=== PATIENT | male | born 1940 | race Caucasian/White ===

== ENCOUNTER 2017-04-14 05:01 | Inpatient (IN) | payer MEDICARE ==
[2017-04-14] MEDS ORDERED: Ondansetron INJ* 2 MG/ML VIAL IV ONE (05:29)
[2017-04-14] MEDS ORDERED: Nitroglycerin TAB 0.4 MG* 0.4 MG TAB SL ONE ×2 (05:29→05:54)
[2017-04-14] MEDS ORDERED: Morphine INJ* 4 MG/ML 1 ML SYRINGE IV ONE (05:29)
[2017-04-14 05:58] LABS: Hematocrit 33 % (42-52); Mean Corpuscular HGB Conc 34 g/dl (31-36); Mean Corpuscular Hemoglobin 29 pg (27-31); Mean Corpuscular Volume 85 fL (80-94); Mean Platelet Volume 8 um3 (7.4-10.4); Red Blood Count 3.83 10^6/ul (4.0-5.4); Red Cell Distribution Width 16 % (10.5-15); White Blood Count 6.2 10^3/ul (3.5-10.8)
[2017-04-14 06:12] LABS: Albumin 3.8 g/dL (3.2-5.2); BUN/Creatinine Ratio 35.1 (8-20); C Reactive Protein 12.23 mg/L (< 5.00); Calcium 9.3 mg/dL (8.6-10.3); EGFR Non-African American 98.8 (>60); Globulin 3.2 g/dL (2-4); Magnesium 1.8 mg/dL (1.9-2.7); Potassium 3.7 mmol/L (3.5-5.0)
[2017-04-14 06:13] LABS: Digoxin 0.2 ng/ml (0.8-2.0); Troponin I 0.02 ng/mL (<0.04)
[2017-04-14 06:22] LABS: TSH (Thyroid Stimulating Horm) 1.57 mcIU/mL (0.34-5.60)
--- NOTE | 2017-04-14 07:57 | RAD ---
Indication: Sudden onset chest pain. Question quality. Previous coronary artery bypass. Comparison: October 06, 2016 Technique: Upright AP 0615 hours Report: Accounting for large body habitus with superimposed soft tissues the lungs and pleural spaces are clear. Negative for pneumothorax. Cardiomegaly. Unremarkable central pulmonary vasculature. Median sternotomy wires. IMPRESSION: Cardiomegaly without evidence for pulmonary edema.
[2017-04-14] MEDS ORDERED: Acetaminophen TAB* 325 MG PO PRN (08:03)
[2017-04-14] MEDS ORDERED: oxyCODONE/Acetamin 5/325 MG* TAB PO PRN (08:03)
[2017-04-14] MEDS ORDERED: Morphine INJ* 2 MG/ML 1 ML SYRINGE IV PRN (08:03)
[2017-04-14] MEDS ORDERED: Dextrose 50% Syringe 50 ML* 25 GM/50 ML SYRINGE IV PUSH PRN (08:05)
[2017-04-14] MEDS ORDERED: Warfarin TAB(*) 5 MG PO SCH (09:00)
--- NOTE | 2017-04-14 09:04 | RAD ---
HISTORY: LFT elevation and a patient with history of "endocarcinoma of the liver" COMPARISONS: None TECHNIQUE: Multiple transverse and longitudinal ultrasound images were obtained of the right upper quadrant. FINDINGS: LIVER: The liver exhibits overall increased echogenicity. In the right lobe of the liver there is a low-density lesion without intrinsic blood flow measuring 2.5 x 1.5 x 2.3 cm. The left lobe of the liver exhibits mild dilatation of the biliary ducts. GALLBLADDER AND EXTRAHEPATIC BILIARY DUCT: The gallbladder is surgically absent. The common bile duct measures a maximum diameter of 5 mm. PANCREAS: The portions of the pancreas not obscured by bowel gas are normal in appearance. RIGHT KIDNEY: The right kidney is normal in size, morphology and echogenicity. AORTA AND IVC: The visualized portions are normal in appearance and not pathologically dilated. IMPRESSION: THERE IS DILATATION OF THE INTRAHEPATIC BILIARY DUCTS OF THE LEFT LOBE OF THE LIVER WELL A LOW ECHOGENICITY LESION IDENTIFIED IN THE RIGHT LOBE OF THE LIVER MEASURING UP TO 2.5 CM IN GREATEST DIMENSION. PARTICULARLY IF THE PATIENT HAS A HISTORY OF MALIGNANCY, FURTHER CHARACTERIZATION THE LIVER SHOULD BE MADE WITH EITHER FOUR-PHASE CONTRAST-ENHANCED CT OR CONTRAST-ENHANCED MRI OF THE LIVER.
[2017-04-14] MEDS: Aspirin Low Dose CHEW TAB* 81 MG PO SCH (09:22)
[2017-04-14] MEDS: Metoprolol Tartrate TAB* 25 MG PO SCH (09:22)
[2017-04-14] MEDS: Bumetanide TAB* 2 MG PO SCH (11:09)
[2017-04-14] MEDS ORDERED: Insulin LISPRO* 1 UNITS UNIT SUBCUT SCH (11:30)
[2017-04-14] MEDS: Insulin LISPRO* 1 UNITS UNIT SUBCUT SCH ×2 (11:48→17:24)
[2017-04-14 11:49] LABS: HDL Cholesterol 29.4 mg/dL
[2017-04-14] MEDS: Nitroglycerin 2% OINT* 1 GM PAK TOPICAL SCH ×2 (11:50→17:26)
--- NOTE | 2017-04-14 12:01 | HP ---
ADDENDUM NOW INCLUDED ON THIS REPORT CC: Dr. Micah Barker; [facility] * HISTORY AND PHYSICAL: DATE OF ADMISSION: 04/14/17 CHIEF COMPLAINT: Chest pain. PRIMARY CARE PROVIDER: Dr. Barker. 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 Patient usually uses a wheelchair and he stated that he used lot of his upper body strength to move books yesterday. He woke up in the middle of the night complaining of severe pain localized in his chest radiating to both arms. It feels that if he could exercise it off, the pain would go away. He was treated with nitroglycerin ____ __ in the emergency department and his pain is right now at 2/10. He denies any shortness of breath. He has no other associated symptoms. He is going to be placed on overnight observation with a diagnosis of chest pain to rule out angina. It appears that the pain could have been musculoskeletal though. PAST MEDICAL HISTORY: 1. History of peripheral vascular disease, status post angioplasty on the left leg with subsequent development of left heel ulcer. 2. History of bilateral lower extremity ulcers. The left heel is being treated by the wound care center and has history of MRSA positive. 3. Recent diagnosis of proctitis in a patient with history of prostate cancer. The patient stated that he had diarrhea for 8 weeks in February 2017. 4. History of adenocarcinoma of the liver, status post TheraSphere radiation therapy to 2 tumors in his liver in 2010. 5. History of neurogenic bladder. 6. History of prostate cancer. 7. Diabetes, type 2, insulin dependent. 8. History of coronary artery disease, status post coronary artery bypass grafting. 9. History of diabetic neuropathy. Patient has basically no sensation in his bilateral lower extremities distally. 10. Patient's last stress test was negative in 2012. 11. History of bilateral leg edema. 12. History of chronic atrial fibrillation. Patient uses Coumadin at 5 mg daily. He states that his INR levels had been in the 1.1 to 1.2 range and he had never been therapeutic. Currently he is not titrating his Coumadin dose and he does not check his INR's. 13. Obstructive sleep apnea. 14. Obesity. 15. Degenerative joint disease. 16. History of left total hip replacement, right total knee replacement, and right total hip replacement. 17. Status post TURP. 18. History of appendectomy and cholecystectomy. MEDICATIONS: Currently include, 1. Insulin NovoLog on a sliding scale with glucose checks 4 times a day. 2. Coumadin 5 mg daily. 3. Vision Essentials 4 tablets daily. 4. Bethel-3 fatty acids 1 capsule daily. 5. Multivitamin 2 tablets daily. 6. Lopressor 25 mg daily. 7. Metformin 1000 mg daily. 8. Coenzyme Q10 200 mg daily. 9. Cardio Plus 45 drops daily. 10. Bumetanide 2 mg daily. 11. Vitamin B complex and folic acid 1 tablet daily. 12. Aspirin 81 mg daily. 13. Acetaminophen on a p.r.n. basis. ALLERGIES: No known drug allergies. FAMILY HISTORY: Diabetes and heart disease. Father with history of obstructive sleep apnea. SOCIAL HISTORY: The patient denies any tobacco, alcohol or drug use. He lives by himself. His surrogate is his son who is a local physician. REVIEW OF SYSTEMS: Please see history of present illness. Patient stated that he had a bout of diarrhea for 8 weeks in February 2017. A sigmoidoscopy and biopsy at that point showed colitis and proctitis. History of recent cellulitis approximately a month ago, treated with ciprofloxacin. That was cellulitis on the left leg. Patient goes to wound care center weekly for wound checks of his left heel and right distal lower extremity. Patient stated that his wounds had been improving. Patient's weight is at baseline at 270 pounds. Patient usually uses a wheelchair for ambulation. All the remaining 14 systems were reviewed with the patient and were otherwise negative. PHYSICAL EXAMINATION GENERAL: Patient is a 76-year-old obese male who is no acute distress. Alert, awake and oriented x3. VITAL SIGNS: Blood pressure of 111/67, heart rate of 87 and regular, respiratory rate 22, oxygen saturation 100% on room air, temperature of 97.6. HEENT: Head atraumatic, normocephalic. Eyes: Pupils equal, reactive to light and accommodation. Oropharynx clear. Mucosa moist. NECK: Supple. No JVD. No bruits bilaterally. RESPIRATORY: Clear to auscultation bilaterally. CARDIOVASCULAR: Irregularly irregular rhythm, no murmur. ABDOMEN: Soft and nontender. Bowel sounds present in all 4 quadrats. EXTREMITIES: There is no edema. Pulses +2 bilaterally. No clubbing or cyanosis. SKIN: Patient is mildly jaundiced. He has a wound of 2 x 2 cm stage 3 on his right lower extremity distally. On the left heel, patient also has a wound 2 x 3 cm, stage 3. Both distal lower extremities have chronic venous stasis dermatitis with chronic appearing erythema. Please note that the patient also has chronic lymphedema of approximately +1 bilaterally. NEUROLOGIC: Speech clear. Cranial nerves II through XII grossly intact. Motor strength is 5/5 bilaterally. Patient has decreased sensation about all distal lower extremities bilaterally. LABORATORY DATA: Sodium 132, potassium 3.7, chloride 97, carbon dioxide 29, BUN 27, creatinine 0.77. Liver function tests showed magnesium of 1.8, total bilirubin of 4.0, AST of 80, ALT of 67, alkaline phosphatase of 697. That is slightly worse from liver function test obtained a month ago in March 2017. Prior to that, patient's liver function tests were basically normal. TSH was 1.57. Patient's troponin was 0.02. Albumin of 3.8, globulin of 3.2. Patient's EKG showed his baseline right bundle branch block with a heart rate of 79 beats per minute. Patient's portable chest x-ray was read by the radiologist as "cardiomegaly without evidence of pulmonary edema." Please also note that the patient's INR was 1.14, PTT of 30.7, D-dimer of below 200. ASSESSMENT AND PLAN: 1. In regards to patient's chest pain, it appears to be most likely musculoskeletal. Patient associates it with exercise yesterday and it feels to him like muscle pain. Nevertheless, he has significant history of coronary artery disease and he is going to be placed on overnight observation and pharmacologic stress test in the morning. His troponins are going to be followed. He is going to be continued on aspirin. I will also check lipid profile, although at this point with elevation of liver function tests, he is not a greatest candidate for statin treatment. 2. In regards to elevation of liver function tests, the patient stated that he thought that it most likely is related to fatty liver. He had elevation of liver function test a month ago already. He does have history of adenocarcinoma of the liver. At this point, I will obtain a liver ultrasound. He is status post cholecystectomy. 3. In regards to wound care, I will ask Wound Care to consult on the patient. Patient had been seen at our wound care center on a weekly basis. 4. For his peripheral leg edema, Bumex is going to be continued. 5. For his diabetes, patient is going to be placed on insulin sliding scale and diabetic diet. Metformin is going to be held while in the hospital. 6. For DVT prophylaxis, patient is at moderate risk and he refused pharmacologic prophylaxis due to easy bruisability in the past. 7. Patient's code status is full. 8. In regards to his chronic atrial fibrillation that is rate controlled on metoprolol, patient is going to be continued on metoprolol. At this point, his INR is subtherapeutic but the patient stated that it had been subtherapeutic for quite some time and he was in fact never really therapeutic. He requested for his Coumadin dose to be not changed. He, at home, does not follow his INR' s. I will continue his Coumadin at 5 mg daily. I do not think at this point, we need to follow up his INRs. TIME SPENT: Please note that approximately 65 minutes were spent on admission of this patient, more than half the time was spent face to face with patient during the interview, physical exam and counseling. ADDENDUM: Please note that the patient has history of neurogenic bladder and self- catheterizes himself 4 times a day. When admitted, the patient requested a Sosa catheter to be placed for comfort. In regards to the patient's chest pain, the patient continues to have chest pain and his troponin increased to 0.2. Dr. Apodaca was consulted. At this point, the patient is not interested in anticoagulation with heparin drip that were offered to him. He was prefer to talk about it with the programming intern. In regards to patient's elevation of liver function tests, the patient's liver ultrasound showed 2.5 cm hypodense lesion. At this point, we agreed to have a CT of the abdomen performed with IV contrast to followup on that to rule out liver metastasis/cancer. I will also order serum alpha fetoprotein. [id number] #: [id number] #: [id number] [facility] MEDICAL CENTERHedy
--- NOTE | 2017-04-14 13:49 | HP ---
HISTORY AND PHYSICAL: * ADDENDUM: Please note that the patient has history of neurogenic bladder and self- catheterizes himself 4 times a day. When admitted, the patient requested a Sosa catheter to be placed for comfort. In regards to the patient's chest pain, the patient continues to have chest pain and his troponin increased to 0.2. Dr. Apodaca was consulted. At this point, the patient is not interested in anticoagulation with heparin drip that were offered to him. He was prefer to talk about it with the boat hand. In regards to patient's elevation of liver function tests, the patient's liver ultrasound showed 2.5 cm hypodense lesion. At this point, we agreed to have a CT of the abdomen performed with IV contrast to followup on that to rule out liver metastasis/cancer. I will also order serum alpha fetoprotein. [id number]/[facility] #: [id number] MTDD
[2017-04-14] MEDS ORDERED: Iodixanol* (CONTRAST) 320 MG/ML 100 ML SDV IV ONE (14:57)
--- NOTE | 2017-04-14 15:37 | RAD ---
INDICATION: Liver lesion seen on ultrasound. COMPARISON: Comparison is made with a prior right upper quadrant ultrasound from April 14, [address] angiogram of the abdomen and pelvis from August 04, 2013. TECHNIQUE: A CT scan of the abdomen was performed without and with intravenous contrast enhancement and with oral contrast. The contrast enhanced portion of the exam was performed during the arterial, portal venous phases and a delayed dataset was obtained. The exam was performed following intravenous injection of 141 ml of is a PICC 320 nonionic contrast. Contiguous axial sections were obtained from the lung bases through the tops of the iliac crests. Images were reconstructed in the coronal and sagittal planes. FINDINGS: There is a small 4 mm calcified nodule present in the left lower lobe. The lung bases are otherwise clear. No pleural effusion is seen. The liver appears mildly enlarged with a lobulated contour. There is a 1.4 cm hypervascular lesion present in the right hepatic lobe which likely accounts for the hypoechoic nodule noted on ultrasonography. This demonstrates washout of contrast. There is overlying retraction of the hepatic capsule and a linear hypodense area extending through this region possibly representing post treatment changes. There is mild intrahepatic ductal distention. The patient is status post cholecystectomy. The spleen is moderately enlarged spanning 17.4 cm. The pancreas appears to be within normal limits. The adrenal glands and kidneys are normal in size. No hydronephrosis is seen. No significant focal abnormality is noted. The aorta is normal in caliber and demonstrates homogeneous contrast opacification. There is mild to moderate calcific plaque present. No significant enlarged retroperitoneal or mesenteric lymph nodes are seen. The stomach and visualized portion of the small and large bowel appear nondistended. No free intraperitoneal air or fluid is seen. The bony density is somewhat heterogeneous without significant focal abnormality appreciated. The results of this exam were discussed with the referring clinician. IMPRESSION: 1. HEPATOSPLENOMEGALY, THE LIVER HAS A LOBULATED APPEARANCE AND THERE APPEAR TO BE POSTTREATMENT CHANGES PRESENT WITHIN THE RIGHT HEPATIC LOBE. THERE IS A SMALL HYPERVASCULAR LESION PRESENT WITHIN THE RIGHT HEPATIC LOBE LIKELY ACCOUNTING FOR THE ABNORMALITY NOTED ON ULTRASOUND SUSPICIOUS FOR MALIGNANCY. CONSIDER ULTRASOUND-GUIDED BIOPSY FOR FURTHER EVALUATION. 2. MILD INTRAHEPATIC DUCTAL DISTENTION.
--- NOTE | 2017-04-14 16:23 | ECHO ---
Patient: VANGIE ZEPEDA [facility] Rec#: [id number] : 1940 Date: 04/14/2017 Age: 76y Height: 177.8 cm / 70.0 in Weight: 123.38 kg / 271.9 lbs Sex: M BSA: 2.38 Room#: 452 Admit Date#: 04/14/2017 Type: Inpatient Referring: Emam Lucero MD Reading: Rola Apodaca MD Deli Associate: Abena Ramirez,BRITTNEYCS,RDMS CC: Micah Zepeda DO Transthoracic Echocardiogram Indication: CP BP: 131/64 HR: 69 Rhythm: A-Fib Findings History: CAD, CABG, AFIB, DM, PVD, liver cancer Technical Comments: The study quality is fair. Left Ventricle: The left ventricular chamber size is normal. Mild to moderate concentric left ventricular hypertrophy is observed. There is a focal wall motion abnormality present.Inferior/posterior wall relatively hypokinetic. The estimated ejection fraction is 45-50%. Ventricular septal wall motion has a post-operative appearance. The assessment of diastolic function is non-diagnostic. Left Atrium: The left atrium is severely dilated. Right Ventricle: The right ventricle is mildly dilated. The right ventricular global systolic function is low normal. Right Atrium: The right atrial cavity size is severely dilated. Aortic Valve: The aortic valve is trileaflet. The aortic valve leaflets are mildly thickened. There is aortic annular calcification. There is trace to mild aortic regurgitation. There is no evidence of aortic stenosis. Mitral Valve: Mild mitral leaflet calcification is visualized. There is moderate mitral regurgitation. There is mild mitral stenosis. Tricuspid Valve: The tricuspid valve leaflets are normal. There is moderate to severe tricuspid regurgitation. There is evidence of borderline pulmonary hypertension. Pulmonic Valve: The pulmonic valve appears normal. There is mild to moderate pulmonic regurgitation. Pericardium: There is no significant pericardial effusion. Aorta: There is mild dilatation of the ascending aorta. There is no dilatation of the aortic arch. There is mild dilatation of the aortic root. Pulmonary Artery: The main pulmonary artery appears normal. Venous: The inferior vena cava is dilated. There is an approximate 50% respiratory change in the inferior vena cava dimension. Conclusions Mild to moderate concentric left ventricular hypertrophy is observed. .Inferior/posterior wall relatively hypokinetic and the septum is markedly dyskinetic c/w with prior CABG. The estimated ejection fraction is 45-50%. The right ventricular global systolic function is low normal. The left atrium is severely dilated. Severe bi atrial enlargement. Aortic valve sclerosis with trace to mild aortic regurgitation. There is moderate mitral regurgitation. There is moderate to severe tricuspid regurgitation. There is evidence of borderline pulmonary hypertension: 33 mmHg assuming an RA pressure of 15 mmHg. There is mild to moderate pulmonic regurgitation. There is mild dilatation of the ascending aorta: 3.9 cm. The inferior vena cava is markedly dilated with an approximate 50% respiratory change in the inferior vena cava dimension. Compared with prior study of01/30/15, LVEF stable, wall motion abnormalities newly described, aortic valve function is stable, mitral insufficiency has increased, tricuspid insufficiency has increased from mild/moderate, aorta stable, previously measured at 4.1 cm. Measurements Name Value Normal Range RVIDd (AP) 2D 4.3 cm (0.9 - 2.6) RVDdMajor (2D) 3.4 cm (2.2 - 4.4) RAd ISD 4CH 7.7 cm (3.4 - 4.9) RA (A4C)W 5.4 cm (2.9 - 4.6) IVSd (2D) 1.4 cm (0.6 - 1) LVPWd (2D) 1.4 cm (0.6 - 1) LVIDd (2D) 4.6 cm (3.6 - 5.4) LVIDs (2D) 4.2 cm - LV FS (2D) 10 % (25 - 45) Aortic Annulus 2.6 cm (1.4 - 2.6) Ao root diameter (2D) 3.9 cm (2.1 - 3.5) Ascending Ao 3.9 cm (2.1 - 3.4) Aortic arch 2.8 cm (1.8 - 3.4) LA dimension (AP) 2D 5.9 cm (2.3 - 3.8) LAd ISD 4CH 8.2 cm (2.9 - 5.3) LA ISD 4CH W 6.1 cm (2.5 - 4.5) Name Value Normal Range LA ESV SP 4CH (A/L) 236.06 ml - LA ESV SP 2CH (A/L) 83.97 ml - LA ESV BP (A/L) 166.66 ml - LA ESV BP (A/L) index 70 ml/m2 - LA ESV SP 4CH (MOD) 216.93 ml - LA ESV SP 2CH (MOD) 78.54 ml - Name Value Normal Range MV E-wave Vmax 0.9 m/sec - MV deceleration time 235 msec - LV septal e' Vmax 0.09 m/sec - LV lateral e' Vmax 0.16 m/sec - LV E:e' septal ratio 10 ratio - LV E:e' lateral ratio 5.6 ratio - Name Value Normal Range AV Vmax 0.9 m/sec - AV peak gradient 3.6 mmHg - LVOT Vmax 0.6 m/sec - LVOT peak gradient 1.4 mmHg - SAVANNA Vmax 0.7 m/sec - Name Value Normal Range MV Vmax 1.3 m/sec - MV VTI 22.2 cm - MV peak gradient 7 mmHg - MV mean gradient 1.8 mmHg - MV PHT 64 msec - MVA (PHT) 3.4 cm2 - Name Value Normal Range TR Vmax 2.1 m/sec - TR peak gradient 18 mmHg - RAP 15 mmHg - RVSP 33 mmHg - IVC diameter 3 cm - Name Value Normal Range PV Vmax 0.5 m/sec - PV peak gradient 1 mmHg -
--- NOTE | 2017-04-14 16:29 | PN ---
Progress Note - Progress Note Note: Pt initially didn't want to be placed on heparin gtt. In light of elevated troponins he agreed. He is now CP free (after nitroglcerin paste)
[2017-04-14] MEDS ORDERED: Heparin VIAL(*) 5000 UNITS/ML VIAL (FIVE THOUSAND) IV SCH (17:00)
[2017-04-14] MEDS: Heparin DRIP 25,000 UNITS(*) 25,000 UNITS/500 ML BAG IVPB SCH (17:19)
[2017-04-14 18:02] LABS: Troponin I 0.67 ng/mL (<0.04)
--- NOTE | 2017-04-14 18:48 | PN ---
Cardiology Progress Note Full consult to be dictated. Pt seen today. Awoke with CP, worst of his life. Denied any associated SOB, diaphoresis. Slowly cleared with NTG in ambulance, ED. Increased upper body exertion lifting books. PMHx includes CABG, afib on coumodin, no INR checks, DM, obesity, prostate CA, adeno CA liver, s/p targeted therapy, recent bump in LFT's, now jaundiced and a new liver lesion found this admission. ECG: afib, RBBB, non specific changes. Trops mild progressive rise. INR subtheraputic, LFT's bumped. A/P 76 yo pt 19 years post CABG with DM, dyslipidemia and elevated LDL now, afib not adequately anticoagulated, cancer as above presenting with CP, bumped trops. Differential: NQMI induced by hypoxia, CHF/THANH. NQMI due to muculoskelatal pain but I could not reproduce, unlikely. NQMI due to embolism with afib, inadequate INR and recurrence of liver CA, could be prothrombotic. Plan: due to comorbidities, potential risk of plavix with vascular tumor and possible tumor intervention and uncertain shelter prognosis and differential of etiology, I am proceeding with a chemical stress (not cath). Repeating ECG's. Agree with heparin. Checking overnight oximetry for poss. THANH. I discussed iwth the pt seeing a local oncologist to assist coordinating care here iwth his usual oncologists, he will see if we recommend.
[2017-04-14 19:16] LABS: Hematocrit 34 % (42-52); Hemoglobin 11.5 g/dl (14.0-18.0); Mean Corpuscular HGB Conc 33 g/dl (31-36); Mean Corpuscular Hemoglobin 29 pg (27-31); Mean Corpuscular Volume 86 fL (80-94); Mean Platelet Volume 8 um3 (7.4-10.4); Red Blood Count 3.99 10^6/ul (4.0-5.4); Red Cell Distribution Width 17 % (10.5-15); White Blood Count 6.4 10^3/ul (3.5-10.8)
[2017-04-15] MEDS: Insulin LISPRO* 1 UNITS UNIT SUBCUT SCH ×4 (00:42→17:34)
[2017-04-15 00:51] LABS: Urine Bacteria Absent (Absent); Urine Bilirubin Negative (Negative); Urine Glucose Negative (Negative); Urine Nitrite Negative (Negative)
[2017-04-15 07:43] LABS: Hematocrit 31 % (42-52); Hemoglobin 10.6 g/dl (14.0-18.0); Mean Corpuscular HGB Conc 34 g/dl (31-36); Mean Corpuscular Hemoglobin 30 pg (27-31); Mean Corpuscular Volume 87 fL (80-94); Mean Platelet Volume 9 um3 (7.4-10.4); Red Blood Count 3.59 10^6/ul (4.0-5.4); Red Cell Distribution Width 16 % (10.5-15); White Blood Count 5.3 10^3/ul (3.5-10.8)
[2017-04-15 07:44] LABS: Albumin 3.4 g/dL (3.2-5.2); BUN/Creatinine Ratio 35.1 (8-20); Calcium 8.9 mg/dL (8.6-10.3); EGFR African American 179.7 (>60); EGFR Non-African American 139.7 (>60); Globulin 2.9 g/dL (2-4); Potassium 3.7 mmol/L (3.5-5.0); Total Protein 6.3 g/dL (6.4-8.9)
[2017-04-15] MEDS: Heparin DRIP 25,000 UNITS(*) 25,000 UNITS/500 ML BAG IVPB SCH (08:45)
[2017-04-15] MEDS: Bumetanide TAB* 2 MG PO SCH (08:46)
[2017-04-15] MEDS: Aspirin Low Dose CHEW TAB* 81 MG PO SCH (08:46)
[2017-04-15] MEDS: Metoprolol Tartrate TAB* 25 MG PO SCH (08:46)
[2017-04-15] MEDS ORDERED: Regadenoson* 0.4 MG/5 ML SYRINGE ONE (11:38)
[2017-04-15] MEDS ORDERED: Aminophylline IV* 25 MG/ML 10 ML VIAL ONE (11:38)
--- NOTE | 2017-04-15 14:43 | CONS ---
CONSULTATION REPORT: DATE OF CONSULT: 04/15/17 REASON FOR CONSULTATION: History of liver cancer. HISTORY OF PRESENT ILLNESS: This is a 76-year-old male who is presenting with chest pain. He developed sudden crushing chest pain 2 days ago as well as numbness down both hands. It was unrelenting and he came to the emergency room at [facility]. No diaphoresis, shortness of breath, or nausea with this episode. He had had a double bypass in 1997, but no cardiac difficulties since that time. He has had multiple negative stress tests as preoperative testing for hip and knee replacements. He had an elevated troponin of approximately 0.6 after admission and he has been on telemetry. He is placed on heparin drip for a non-Q-wave AZ. Stress test is pending and a question has been raised as to whether or not he would benefit from cardiac intervention including a stent. He has a history of liver cancer. He discusses a primary liver adenocarcinoma, I questioned whether or not he had a hepatocellular carcinoma of the liver with adenomatous differentiation, other possibility could be of a hepatocellular cholangiocarcinoma or primary biliary tumor. He was diagnosed in 2009 and treated at [facility] with TheraSphere therapy. At that time, he reports having a 5 cm and 2 cm tumor in the right lobe of the liver. He had a complete response within 9 months and has been without evidence of disease since that time. On presentation yesterday, he had a CT scan of the chest and abdomen. He was found to have a new 1.5 cm liver lesion in the area of prior directed therapy, no other lesions on the CT scan. He had an ultrasound that shows some diffuse heterogeneity of the liver parenchyma as well as a 1.5 cm lesion. Again, no other focal lesions seen. He has a bilirubin of 5.0 on 04/15 and 4.0 on 04/14. He has an alkaline phosphatase of 669. He had normal alkaline phosphatase through 2014, then 117 on 01/22, then 187 on 01/21, then 187 on 09/23, then 639 on admission. His bilirubin had always been normal but was 1.1 on 10/06/16, then 3.7 on 03/11/17 and then 4 to 5 on this admission as noted above. He has a mild elevation in his AST that was normal until 09/2016 at 45, then 104 last month, 103 today and ALT was normal in 09/2016, 71 on 03/24, and 73 today. In addition to the chest pain, he has had change in stool color over the past several weeks, suarez to beige. He has had diffuse itching for 2 to 3 weeks. Other notable history includes history of adenocarcinoma of the pancreas, also treated at [facility] with a TURP followed by [place] therapy, directed external beam radiation. He has had a low PSA since that time. PAST MEDICAL HISTORY: 1. Coronary artery disease as noted above. History of bypass and now chest pain. 2. Peripheral vascular disease, status post angioplasty of left leg and complicated by a left heel ulcer. 3. Left heel ulcer. Treated by Dr. Tierney. He has had hyperbaric oxygen, slowly healing. 4. Proctitis and C. diff colitis diagnosed by Dr. Cross, had been treated with Flagyl and improved. 5. Neurogenic bladder, self-catheterization 7 to 8 times a day and a Sosa while he is in the hospital. 6. Type 2 diabetes, insulin dependent. 7. Diabetic neuropathy with decreased sensation in the lower extremities. 8. Bilateral lower extremity edema. 9. Chronic atrial fibrillation, taking Coumadin 5 mg a day and subtherapeutic on admission. 10. Obstructive sleep apnea. 11. Obesity. 12. Degenerative joint disease. Hip and knee replacements in the past. PAST SURGICAL HISTORY: 1. Appendectomy. 2. Cholecystectomy. 3. TURP, prior to treatment of prostate cancer. 4. TheraSphere therapy to liver. 5. Hip replacement. 6. Knee replacement. 7. Coronary artery bypass surgery. ALLERGIES: None. FAMILY HISTORY: Diabetes and heart disease, obstructive sleep apnea in the family. SOCIAL HISTORY: Denies tobacco or any alcohol or drug use. Lives by himself. Son is a physician locally. He lives alone and he has been independent. REVIEW OF SYSTEMS: As noted per HPI, 14-point review otherwise negative. PHYSICAL EXAM: Temperature 98.5, BP 113/59, heart rate 87, saturation 98%. HEENT: Scleral icterus. Jaundice. No cervical or supraclavicular lymphadenopathy. No oral lesions. Lungs: Clear to auscultation bilaterally. Heart: Irregular, 70s. No clear murmurs. Nodes: No peripheral lymphadenopathy. Abdomen: Nontender and nondistended. I do not really feel the liver edge and I feel a slight spleen tip. : Sosa in place. Dark yellow urine. Extremities: Edema both sides. His right leg is in a brace that was not removed. DIAGNOSTIC STUDIES/LAB DATA: Liver function tests as outlined above. He had an INR of 1.14 on admission. PTT increased now on Coumadin and he has had an albumin of 3.4 on admission. Blood counts are stable. CT scan without clear splenomegaly, slight nodularity to the liver. No hydronephrosis. Normal renal appearance, normal appearing bowels. No bone lesions. The 1.5 cm lesion is seen. Scans are reviewed with Dr. Marc. ASSESSMENT AND PLAN: A 76-year-old male with a history of primary liver malignancy. I suspect cirrhosis and hepatocellular carcinoma with adenomatous differentiation, primary biliary cancer, cholangiocarcinoma are both possible. My thought that this is hepatocellular cancer is based on his treatment with TheraSphere Therapy as well as the prolonged time course of his disease. Now presents with acute liver failure and chest pain with an elevated troponin. The 1.5 cm liver lesion is concerning in the half-way, but would not directly affect the management of his cardiac disease. For that alone, it is likely he would have additional directed therapy. The lesion will need to be biopsied, can be done before cardiac intervention defer for 3 month and repeat imaging. . Based on that lesion, I would recommend a bare metal stent with limited need for Plavix. More concerning; however, is his elevated bilirubin. He appears to have acute on chronic liver failure, both by symptoms and his blood work. I reviewed his ultrasound and CT scan with Dr. Marc and I do not see a clear explanation for the elevated bilirubin. He has very modest ductal dilation on the left side on the ultrasound. There is some diffuse nodular disease. Differential diagnosis is chronic liver disease likley from fatty liver with acute decompensation, this could be from right heart failure, progressive cancer. 1. I would delay cardiac intervention at this time. 2. We will order MRI of the liver. 3. I will talk to Dr. Jeter, [facility], and get additional records as well as any additional LFTs that were done down there over the past few years. 4. No contraindication to heparin. INR of 1.14 on 5 mg of Coumadin does seem to indicate preserved synthetic liver function. 5. Consultation to GI for management of acute liver disease. We will continue to follow. [id number]/[facility] #: [id number] [facility] MEDICAL CENTERHedy
--- NOTE | 2017-04-15 15:16 | CONS ---
CC: Dr. Micah Barker; [facility], Dr. Tierney * CARDIOLOGY CONSULTATION: DATE OF CONSULTATION: 04/14/17 REASON FOR CONSULTATION: Coronary artery disease, chest pain, and elevated troponins. CHIEF COMPLAINT: Chest pain. HISTORY OF PRESENT ILLNESS: The patient is a 76-year-old gentleman followed by my partner, Dr. Berry Ballesteros, with known atherosclerotic heart disease, with bypass surgery in 1997. He is in chronic atrial fibrillation and takes Coumadin regularly but takes the same dose without checking INRs. Recently, the patient had not been able to ambulate due to heel wound, has been using a wheelchair. The day before he came in, he was doing a lot of lifting, moving books in the wheelchair with his upper body. He went to bed feeling well then awoke in the middle of the night with 10/10 chest pain. He denied any associated diaphoresis, nausea, and he said he was not winded. It did not resolve, he called his family and emphasized the importance of getting here and he had nitroglycerin several times with eventual resolution of his pain and it has not recurred. The patient denied a positional component to it. He states that he used to have sleep apnea but lost weight and no longer has it (his son states he has sleep apnea and does not like his CPAP). PAST MEDICAL HISTORY: 1. Coronary artery disease, originally in 1997 had stents occluded and he went on to have 2-vessel bypass surgery, that was 18 years ago. On February 1999, he had stents to the LAD and right coronary artery. He had an inferior wall myocardial infarction in 1998 in May with stent to the distal right coronary artery. In September 1999, he had an acute inferior myocardial infarction with a 60% in-stent restenosis of the LAD, mild plaquing in the circumflex and a 100 % right coronary artery occlusion. He had an inferior hypokinesis and an ejection fraction of 45% and underwent 2-vessel bypass surgery with a saphenous vein graft to the posterior descending of the right and saphenous vein graft to the LAD. 2. He has peripheral vascular disease status post angioplasty to the left lower extremity and it is unclear to me if the left heel ulcer was pre or post angioplasty. 3. He has bilateral lower extremity ulcers. 4. Type 2 diabetes, insulin dependent with diabetic neuropathy. 5. Chronic lower extremity edema. 6. Chronic atrial fibrillation, Coumadin as above. 7. Morbid obesity. 8. Obstructive sleep apnea. 9. Degenerative joint disease. 10. History of prostate cancer, status post TURP. 11. History of liver cancer, adenocarcinoma with a history of TheraSphere radiation therapy to two tumors in the liver, 2010. 12. Recent increase in liver function test and on this admission, another liver mass noted. 13. He has hypertension. 14. Neurogenic bladder, self-cath. PAST SURGICAL HISTORY: Includes: 1. His bypass surgery. 2. Orthopedic surgery including a left hip replacement, right hip replacement and right total knee replacement. 3. Appendectomy. 4. Cholecystectomy. 5. TURP. CURRENT INPATIENT MEDICATIONS: Include: 1. Heparin drip just started 04/14/17. 2. Tylenol. 3. Aspirin 81 mg a day. 4. Bumex 2 mg every morning. 5. Humalog insulin Lopressor 25 mg a day. 6. Morphine p.r.n. 7. Percocet p.r.n. ALLERGIES: He has no known medication allergies. FAMILY HISTORY: Positive for coronary disease, diabetes. 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 Not able to exercise recently. His son is a local physician, lumber inspector. REVIEW OF SYSTEMS: Significant, in that several weeks ago, he had a bout of diarrhea, lasting several weeks, ultimately diagnosed with proctitis and colitis. He has had a recent cellulitis, and being actively treated in the wound clinic for his ulcers which he says, are starting to improve. Recent pruritis itching so much he has bruising. He denied any chest pain prior to this and states that the chest pain he had was the worst in his life and very different from his AR pain that he recalls from several years ago. PHYSICAL EXAMINATION: On exam, the patient is 5 feet, weighs 270 pounds with a BMI of 39.4. Vitals: At the time of my exam, blood pressure 114/70, pulse is 70s to 90s (AFib), oxygen saturation 100% on 2 L nasal cannula and he is afebrile at 97.5. General appearance: Morbidly obese elderly gentleman lying almost flat, appears comfortable. Skin: Appears mildly jaundiced, ecchymosis of the forarms and more. The patient is no acute distress. Psychologically, pleasant and cooperative. Neurologically, awake, alert, oriented to person, place and time. Cranial nerves II through XII intact. Speech is articulate. Comprehension is good. He follows commands well. It is hard for him to move in bed due to his obesity and medical issues. HEENT: Pupils are equal and round. Mucous membranes are moist. Neck: Without appreciable increase in JVP , but his neck is thick. Breath sounds were clear in fair inspiratory effort. Coronary: S1, S2, irregularly irregular, a bit distant. Abdomen: Overweight, active bowel sounds. Soft, nontender. No hepatomegaly appreciated. Lower extremities had compression stockings on and he had 3+ to 4+ edema bilaterally, left greater than right. I did not examine his heel. DIAGNOSTIC STUDIES/LABORATORY DATA: White count 6.2, hemoglobin 11, hematocrit 33, INR on arrival 1.14, PTT 30.7. Sodium 132, potassium 3.7, chloride 97, BUN 27, creatinine 0.77, glucose 140, AST 80, ALT 67, alk phos 697, CRP of 12.33, troponin I 0.02, troponin II 0.25, troponin III 0.37, troponin IV 0.67 troponin V 0.53. Total cholesterol 199, triglycerides 107, HDL cholesterol 29 and LDL cholesterol 148, TSH of 1.57, lipase 36. Urinalysis positive for protein, blood, bili, leukocyte esterase positive, 3+ white cells, 3+ red cells. No microbiology culture is pending. Echocardiogram showed an ejection fraction of 45% to 50% with septal dyskinesis and inferoposterior hypokinesis with moderate mitral insufficiency, moderate to severe tricuspid insufficiency and borderline elevation of PA pressures. The patient's EKG on arrival shows atrial fibrillation with a right bundle branch block and a ventricular rate of 79 beats a minute, QRS axis -30. He has inverted T- waves in the precordial and inferior leads that have been seen previously. Repeat ECG, same day showed progression in his T-wave abnormalities but no clear ST changes. Liver ultrasound showed dilatation of the intrahepatic biliary duct in the left lobe of the liver and additional changes concerning for malignancy. Abdominal and pelvic CT scan shows hepatosplenomegaly, lobulated liver, small hypervascular lesion in the right hepatic lobe suspicious for malignancy, mild intrahepatic ductal distention. SUMMARY: Wu Barker is a 76-year-old gentleman with atherosclerotic heart disease, 2-vessel, 18 years post bypass surgery presenting with chest pain, mild elevation in troponins and chronically abnormal EKG. His chest pain has a differential of musculoskeletal from the activity he had done, angina on the basis of coronary disease or on the basis of embolic phenomena or stress from his significant pain, if it were noncardiac. He has an indication for a cardiac catheterization but I would not want to proceed with a cath unless we were in a position to proceed with intervention. With evidence that Mr. Barker has recurrence of his liver malignancy, I do not want to do any procedures that would require longstanding anticoagulation, particularly if he is at high risk for spontaneous bleeding from these lesions or if he would need a procedure in a vascular area, that it would be best done off anticoagulants. The patient's long-term oncologic prognosis would also be helpful. For now I have recommended a nuclear stress test as he is unable to walk, we will do a chemical one and coordinate with Oncology. The patient's Oncology group is in [place] and he has an appointment planned in May, but after discussion, he is amenable to seeing a local oncologist to help coordinate care with his Oncology team and the Cardiology, an lumber inspector team here. In the interim, it appears something stressed him to give him 10/10 pain in the middle of the night. If this is angina, then I have concerns for obstructive sleep apnea and I have ordered this to be tested for. If he is abnormal, I think we should get him back on CPAP. His LDL cholesterol is elevated. I talked to his son about this, he did not perceive his father's lipids were elevated and did not recall allergies or intolerance to medication. If this in fact is the case, then the issue is, can we start a statin in the setting of liver problems. So I have not initiated that at this point in time. 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 Resins may be another option for him. Additional risk factor modification, I agree with the heparinization and possible consideration for NOAC, if we are able to do this safely with his comorbidities, renal and liver situation, this maybe another good option for him going forward instead of Coumadin to prevent risk of future embolic phenomena. 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 We are going to optimize his medical management for atherosclerotic risk, ensure he is fully anticoagulated with agents that are easily reversible and await the results of his nuclear stress test and we will coordinate with Oncology and Internal Medicine once the results of his stress tests are available. [id number]/[facility] #: [id number] MTDD
--- NOTE | 2017-04-15 17:09 | PN ---
Subjective Date of Service: 04/15/17 Interval History: f/u ID no chest pain or dyspnea Medications Active Medications: Acetaminophen (Tylenol Tab*) 650 mg PO Q4H PRN PRN Reason: FEVER/PAIN Aspirin (Aspirin Low Dose Tab*) 81 mg PO QAM [facility] Last Admin: 04/15/17 08:46 Dose: 81 mg Bumetanide (Bumex Tab*) 2 mg PO QAM [facility] Last Admin: 04/15/17 08:46 Dose: 2 mg Dextrose (D50w Syringe 50 Ml*) 12.5 gm IV PUSH .FOR FS < 60 - SS PRN PRN Reason: FS < 60 Heparin Sodium (Porcine) (Heparin Vial(*)) 0 units IV .PER PROTOCOL [facility] PRN Reason: Protocol Last Admin: 04/14/17 17:19 Dose: 6,900 units Heparin Sodium/Dextrose (Heparin Drip 25,000 Units(*)) 25,000 units in 500 mls @ 0 mls/hr IVPB .PER RATE ANASTASIYA; Per Protocol PRN Reason: Protocol Last Admin: 04/15/17 08:45 Dose: 29 mls/hr Insulin Human Lispro (Humalog*) 0 units SUBCUT Q6HR [facility] PRN Reason: Protocol Last Admin: 04/15/17 12:40 Dose: Not Given Metoprolol Tartrate (Lopressor Tab*) 25 mg PO DAILY [facility] Last Admin: 04/15/17 08:46 Dose: 25 mg Morphine Sulfate (Morphine Inj (Syringe)*) 2 mg IV Q4H PRN PRN Reason: PAIN Oxycodone/Acetaminophen (Percocet 5/325 Tab*) 1 tab PO Q4H PRN PRN Reason: Pain Objective Vital Signs: Temp Pulse Resp BP Pulse Ox 98.5 F 88 16 113/59 98 04/15/17 07:58 04/15/17 07:58 04/15/17 06:48 04/15/17 07:58 04/15/17 07:58 Appearance: very pleasant, nad Respiratory: Symmetrical Chest Expansion and Respiratory Effort Cardiovascular: - - irregularly irregular Neurological: Alert and Oriented x 3 Laboratory Results: 04/15/17 05:36 04/15/17 05:36 INR (Anticoag Therapy) 1.14 (0.89-1.11) H 04/14/17 05:23 APTT 71.7 seconds (26.0-36.3) H 04/15/17 09:12 Total Bilirubin 5.00 mg/dL (0.2-1.0) H 04/15/17 05:36 AST 103 U/L (13-39) H 04/15/17 05:36 ALT 73 U/L (7-52) H 04/15/17 05:36 Alkaline Phosphatase 669 U/L (34-104) H 04/15/17 05:36 CK-MB (CK-2) 2.8 ng/mL (0.6-6.3) 04/14/17 05:23 B-Natriuretic Peptide 74 pg/mL (-100) 04/14/17 05:23 Total Protein 6.3 g/dL (6.4-8.9) L 04/15/17 05:36 Albumin 3.4 g/dL (3.2-5.2) 04/15/17 05:36 Globulin 2.9 g/dL (2-4) 04/15/17 05:36 Albumin/Globulin Ratio 1.2 (1-3) 04/15/17 05:36 Triglycerides 107 mg/dL 04/14/17 05:23 Cholesterol 199 mg/dL 04/14/17 05:23 LDL Cholesterol 148 mg/dL 04/14/17 05:23 HDL Cholesterol 29.4 mg/dL 04/14/17 05:23 TSH 1.57 mcIU/mL (0.34-5.60) 04/14/17 05:23 04/15/17 01:01 Troponin I 0.53 H* Assessment/Plan 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 Rest images of vasodilator stress MPI are pending. Oncology consult reviewed in detail. Will wait for the results of stress test after rest images, liver MRI and further Oncology input before deciding whether to pursue an invasive strategy for patients enzymatically small type 1 ID. This was discussed with Dr. Barker.
--- NOTE | 2017-04-15 19:02 | CONS ---
GASTROENTEROLOGY CONSULT: DATE: 04/15/17 REFERRING PHYSICIANS: García Alexis; Dawson Tierney REASON FOR CONSULTATION: Rising cholestatic liver tests. 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 He has been started on heparin and is in the midst of a 2-day stress test. While here, it is noted that his alkaline phosphatase and bilirubin have risen to 669 and 5.0 and imaging had shown some dilation of the left intrahepatic system and questionably the right. He has been pain free since admission. He states that he had been considered cured of his hepatomas from about 1-1/2 to 2 years following his therapy and was fine for a number of years, having CT scans here and normal LFTs. He takes a lot of supplements and did begin a new diabetes directed supplement with a dozen ingredients about 3 weeks ago. Two weeks ago, he began noting some itching. His stools turned pasty even accounting for the iron he takes. He did not have any abdominal pain, loss of appetite, or vomiting. His stools have been normal, have remained so since being treated for C. difficile 3 to 4 months ago. He did take a course of Cipro about 3 weeks ago and has been on that or Levaquin a number of times. Since hospital admission, he has not had any further chest pain. PAST MEDICAL HISTORY: 1. Morbid obesity. 2. Diabetes - longstanding, on insulin. 3. Prostate cancer - treated medically, diagnosed in 2009 and during the course of that workup, liver lesions found. 4. Hepatocellular carcinoma of the right hepatic lobe - during the prostate evaluation, he says some spots were seen on the liver and they were felt originally to be benign hemangiomas. He wanted another opinion and during a 3- day stay at [facility] in [place], had a liver biopsy interpreted as a primary hepatoma. He got a second opinion at [facility] in [place], confirmed that, and so he went back to [facility] where through the femoral artery, he had TheraSpheres were administered and over a year and a half or so, lesions that were originally 4.7 and 2.0 cm faded away. The AFP status of those lesions is not known. 5. Coronary artery disease, history of remote bypass. 6. Peripheral vascular disease, status post angioplasty, left leg. 7. Chronic wound infections of the legs. 8. Neurogenic bladder - chronic self-catheterization QID. 9. Bilateral venous edema. 10. Chronic AFib - on warfarin. 11. Sleep apnea. 12. Degenerative joint disease - several knee and hip replacements. 13. Status post cholecystectomy. 14. Status post appendectomy. ALLERGIES: None. FAMILY HISTORY: No history of colon cancer. SOCIAL HISTORY: He is a retired [employer]. His son is a family physician in [place] who trained in [place]. His son's phone number is . REVIEW OF SYSTEMS: He denies a history of viral hepatitis, rheumatoid arthritis , alcoholism or liver problems as a young man. Hepatoma was presumed to be on the basis of fatty liver. There is no history of CVA, TIA, seizures, prior itching, primary dermatologic disease, or pulmonary disease other than sleep apnea. EXAM: He is a chronically ill appearing man with multiple ecchymoses on the arms. His legs are grossly swollen. He has an indwelling Sosa catheter. He has difficulty positioning himself on the bed being unable to lift his feet without raising them with his hands. He is alert. His sclerae are mildly icteric. He has no adenopathy. Lungs are clear and heart sounds are regular. The abdomen is obese with some ecchymoses. There is no palpable abnormality. Rectal is deferred. Extremities are grossly edematous. IMAGING: Reviewed - CT scan of the abdomen shows a lot of metallic artifact corresponding to the cystic duct stump. The left hepatic system is mildly dilated and the right hepatic system debatably dilated. On coronal images, the common duct is not grossly dilated. There is a calcification in the medial wall of the duodenum close to but not superimposed on the common duct. It was present on a scan 3 to 4 years ago. It is on coronal image 52 of 131. LABS: He is mildly anemic with hemoglobin from 10.6 to 11.0 over the last 48 hours. White count 6, platelets 157. INR 1.2. Albumin 3.4. IMPRESSION: This 76-year-old retired [employer] treated for hepatoma 7 years ago, now has rising cholestatic LFTs coincident with an admission for chest pain. He is known to have prior coronary disease and obviously has had significant liver issues also. Most likely, in the circumstance is recurrence of the liver tumor near the josy hepatis obstructing the intrahepatic biliary system. The timing of his beginning a new herbal supplement is provocative, but this would not be expected to lead to dilation of the intrahepatic ducts and actually, his alkaline phosphatase was somewhat elevated in September 2016 at 187. At that time, there were many other medication changes. His bilirubin was normal. Once his cardiac evaluation is completed, the question of whether to attempt to have an ERCP done with an eye towards a high common duct stent can be more immediately discussed. That is probably best done at a major center. [id number]/CPS #: [id number] MTDD
[2017-04-16] MEDS: Heparin DRIP 25,000 UNITS(*) 25,000 UNITS/500 ML BAG IVPB SCH (05:22)
[2017-04-16] MEDS: Insulin LISPRO* 1 UNITS UNIT SUBCUT SCH ×5 (05:43→19:55)
[2017-04-16] MEDS: Metoprolol Tartrate TAB* 25 MG PO SCH (09:13)
[2017-04-16] MEDS: Bumetanide TAB* 2 MG PO SCH (09:13)
[2017-04-16] MEDS: Aspirin Low Dose CHEW TAB* 81 MG PO SCH (09:13)
[2017-04-16 10:30] LABS: Hematocrit 33 % (42-52); Hemoglobin 10.8 g/dl (14.0-18.0); Mean Corpuscular HGB Conc 33 g/dl (31-36); Mean Corpuscular Hemoglobin 29 pg (27-31); Mean Corpuscular Volume 86 fL (80-94); Mean Platelet Volume 8 um3 (7.4-10.4); Red Blood Count 3.79 10^6/ul (4.0-5.4); Red Cell Distribution Width 17 % (10.5-15)
[2017-04-16 10:45] LABS: Albumin 3.6 g/dL (3.2-5.2); BUN/Creatinine Ratio 21.5 (8-20); EGFR African American 154.4 (>60); EGFR Non-African American 120.1 (>60); Globulin 3.1 g/dL (2-4); Potassium 3.7 mmol/L (3.5-5.0); Total Bilirubin 6.8 mg/dL (0.2-1.0); Total Protein 6.7 g/dL (6.4-8.9)
[2017-04-16 10:50] LABS: Troponin I 0.15 ng/mL (<0.04)
[2017-04-16] MEDS: Isosorbide Mononitrate ER TAB* 30 MG PO SCH (12:12)
--- NOTE | 2017-04-16 13:59 | RAD ---
HISTORY: Chest pain, elevated troponins, previous MO, diabetes, obesity COMPARISONS: July 10, 2013 TECHNIQUE: A 2 day stress/rest myocardial perfusion study was performed, with pharmacologic stress. The stress portion was monitored by Dr. Yañez. Gated SPECT imaging was performed, without CT-based attenuation correction secondary to patient physical limitation DOSE: Stress: Technetium 99m tetrofosmin, 25.77 millicuries, injected at 12:30 PM on April 15, 2017 Rest: Technetium 99m tetrofosmin, 25.93 millicuries, injected at 6:31 AM on April 16, 2017 Pharmacologic agent: Lexiscan FINDINGS: CARDIAC MONITORING: Chest tightness without ischemic EKG changes with stress. EF: 48 % with stress, 57% with rest TID: 1.19 MOTION: There is septal hypokinesia. PERFUSION: There is a moderate-sized fixed defect of the lateral wall. There is a small apical reversible defect. OTHER: None IMPRESSION: 1. DECREASED EJECTION FRACTION WITH STRESS, WITH SEPTAL HYPOKINESIA. 2. MODERATE SIZED FIXED DEFECT OF THE LATERAL WALL SUGGESTIVE OF PREVIOUS INFARCT. 3. SMALL APICAL REVERSIBLE DEFECT SUGGESTIVE OF A SMALL AREA OF ISCHEMIA ASSESSMENT: INTERMEDIATE RISK. Based on imaging criteria from ACC/AHA 2002. Guideline Update for the Management of Patient's with Chronic Stable Angina, table 23. Noninvasive Risk Stratification.
[2017-04-16] MEDS ORDERED: Gadoxetate* (CONTRAST) 181.43 MG/ML 10 ML SDV IV ONE (17:05)
--- NOTE | 2017-04-16 18:21 | RAD ---
INDICATION: Liver disease. COMPARISON: Comparison is made with a prior CT of the abdomen from April 14, 2017. TECHNIQUE: Coronal T2 and axial T1, T2, diffusion, in phase and out of phase T1-weighted images were obtained. Axial dynamic contrast-enhanced axial T1-weighted images were obtained following intravenous injection of 10 ml of Eovist contrast. Coronal T1-weighted images were obtained. In addition an MRCP study was performed. FINDINGS: The liver is enlarged and has a lobulated appearance as previously noted. The small hypervascular lesion in the right hepatic lobe on the prior CT study is not visualized on the MR exam. The patient is status post cholecystectomy. There appears to be mild intrahepatic ductal distention. There is a focal stenosis in the midportion of the common bile duct. No intraluminal filling defect or calculus is seen. The pancreas appears normal in size. No pancreatic ductal distention is present. The spleen is moderately enlarged spanning 17.6 cm without focal abnormality. The kidneys and adrenal glands appear normal in size. There is a small 1 cm cyst in the lower pole of the left kidney. No other focal abdomen normality's or hydronephrosis is seen. No significant enlarged lymph nodes are seen. The abdominal aorta is normal in caliber. No free intraperitoneal fluid is seen. There are T2 hyperintense lesions in the lower dorsal vertebra nonspecific although likely representing hemangiomas. These can be further evaluated with an MRI of the dorsal spine if clinically needed. IMPRESSION: 1. HEPATOSPLENOMEGALY. THERE IS MILD INTRAHEPATIC DUCTAL DISTENTION. THERE APPEARS TO BE A STENOSIS IN THE COMMON BILE DUCT. RECOMMEND ERCP FOR FURTHER EVALUATION. 2. THE PREVIOUSLY NOTED SMALL HYPERVASCULAR LESION NOTED IN THE RIGHT HEPATIC LOBE IS NOT VISUALIZED ALTHOUGH REMAINS A SUSPICIOUS FINDING NOTED PREVIOUSLY. 3. T2 HYPERINTENSE LESIONS IN THE LOWER DORSAL VERTEBRA LIKELY REPRESENTING HEMANGIOMAS ALTHOUGH NONSPECIFIC. THESE CAN BE FURTHER EVALUATED WITH AN MRI OF THE DORSAL SPINE IF CLINICALLY NEEDED.
[2017-04-16] MEDS ORDERED: Insulin LISPRO* 1 UNITS UNIT SUBCUT SCH (18:57)
--- NOTE | 2017-04-16 18:58 | PN ---
Subjective Date of Service: 04/16/17 Interval History: f/u MS no chest pain or dyspnea ambulating to bathroom and back Medications Active Medications: Acetaminophen (Tylenol Tab*) 650 mg PO Q4H PRN PRN Reason: FEVER/PAIN Aspirin (Aspirin Low Dose Tab*) 81 mg PO QAM [facility] Last Admin: 04/16/17 09:13 Dose: 81 mg Bumetanide (Bumex Tab*) 2 mg PO QAM [facility] Last Admin: 04/16/17 09:13 Dose: 2 mg Dextrose (D50w Syringe 50 Ml*) 12.5 gm IV PUSH .FOR FS < 60 - SS PRN PRN Reason: FS < 60 Heparin Sodium (Porcine) (Heparin Vial(*)) 0 units IV .PER PROTOCOL [facility] PRN Reason: Protocol Last Admin: 04/14/17 17:19 Dose: 6,900 units Heparin Sodium/Dextrose (Heparin Drip 25,000 Units(*)) 25,000 units in 500 mls @ 0 mls/hr IVPB .PER RATE ANASTASIYA; Per Protocol PRN Reason: Protocol Last Admin: 04/16/17 05:22 Dose: 25 mls/hr Insulin Human Lispro (Humalog*) 0 units SUBCUT Q6HR [facility] PRN Reason: Protocol Last Admin: 04/16/17 12:12 Dose: 10 units Isosorbide Mononitrate (Imdur Er Tab*) 30 mg PO DAILY [facility] Last Admin: 04/16/17 12:12 Dose: 30 mg Metoprolol Succinate (Toprol Xl Tab*) 50 mg PO DAILY [facility] Metoprolol Tartrate (Lopressor Tab*) 25 mg PO ONCE ONE Stop: 04/16/17 20:01 Oxycodone/Acetaminophen (Percocet 5/325 Tab*) 1 tab PO Q4H PRN PRN Reason: Pain Objective Vital Signs: Temp Pulse Resp BP Pulse Ox 98.1 F 69 20 111/53 100 04/16/17 15:38 04/16/17 15:38 04/16/17 15:38 04/16/17 15:38 04/16/17 15:38 Appearance: very pleasant, nad Respiratory: Symmetrical Chest Expansion and Respiratory Effort Cardiovascular: - - irregularly irregular Neurological: Alert and Oriented x 3 Laboratory Results: 04/16/17 10:12 04/16/17 10:12 INR (Anticoag Therapy) 1.14 (0.89-1.11) H 04/14/17 05:23 APTT 57.6 seconds (26.0-36.3) H 04/16/17 10:12 Total Bilirubin 6.80 mg/dL (0.2-1.0) H D 04/16/17 10:12 AST 115 U/L (13-39) H 04/16/17 10:12 ALT 87 U/L (7-52) H 04/16/17 10:12 Alkaline Phosphatase 776 U/L (34-104) H 04/16/17 10:12 CK-MB (CK-2) 2.8 ng/mL (0.6-6.3) 04/14/17 05:23 B-Natriuretic Peptide 74 pg/mL (-100) 04/14/17 05:23 Total Protein 6.7 g/dL (6.4-8.9) 04/16/17 10:12 Albumin 3.6 g/dL (3.2-5.2) 04/16/17 10:12 Globulin 3.1 g/dL (2-4) 04/16/17 10:12 Albumin/Globulin Ratio 1.2 (1-3) 04/16/17 10:12 Triglycerides 107 mg/dL 04/14/17 05:23 Cholesterol 199 mg/dL 04/14/17 05:23 LDL Cholesterol 148 mg/dL 04/14/17 05:23 HDL Cholesterol 29.4 mg/dL 04/14/17 05:23 TSH 1.57 mcIU/mL (0.34-5.60) 04/14/17 05:23 04/15/17 04/16/17 01:01 10:12 Troponin I 0.53 H* 0.15 H* Assessment/Plan Dr. Barker had an ezymatically small type 1 MS and is without recurrent angina and troponin peaked at 0.67. He had a very small focal mid anterior/ anteroseptal wall reversible defect that is likely between the proximal LAD stent and SVG-LAD. He also had a small sized infero/inferolateral wall infarct with mild nargis-infarct ischemia that is slightly more prominent than on prior studies. The LVEF is mildly reduced on echo. I discussed with Negrito, his son who is also a physician and Dr. Mj and given no high risk features and asymptomatic status will continue medical management and not pursue an invasive approach at this time.. - Continue aspirin 81 mg PO daily - Given chronic subtherapeutic INR's and lack of INR monitoring would change warfarin to plavix if no procedure being planned soon. Otherwise continue IV heparin gtt for now - Change metoprolol 25 tartrate QD to toprol 50 PO QD (ordered) - Start imdur 30 mg PO daily (ordered) - Patient declines statin - No cardiac contraindications to ERCP
[2017-04-16] MEDS ORDERED: Insulin LISPRO* 1 UNITS UNIT SUBCUT ONE (20:00)
[2017-04-16] MEDS ORDERED: Metoprolol Tartrate TAB* 25 MG PO ONE (20:00)
[2017-04-17] MEDS ORDERED: Insulin LISPRO* 1 UNITS UNIT SUBCUT ONE ×2 (01:00→07:00)
[2017-04-17] MEDS: Insulin LISPRO* 1 UNITS UNIT SUBCUT SCH ×3 (05:11→12:19)
[2017-04-17 06:21] LABS: Albumin 3.4 g/dL (3.2-5.2); Direct Bilirubin 2.9 mg/dL (0.03-0.18); Globulin 2.9 g/dL (2-4); Indirect Bilirubin 2.2 mg/dL (0.3-1.0); Total Bilirubin 5.1 mg/dL (0.2-1.0); Total Protein 6.3 g/dL (6.4-8.9)
[2017-04-17 06:59] LABS: Carcinoembryonic Antigen 1.5 ng/mL (0.1-5.0)
[2017-04-17 08:02] VITALS: BP 119/53
[2017-04-17] MEDS: Isosorbide Mononitrate ER TAB* 30 MG PO SCH (08:53)
[2017-04-17] MEDS: Bumetanide TAB* 2 MG PO SCH (08:53)
[2017-04-17] MEDS: Aspirin Low Dose CHEW TAB* 81 MG PO SCH (08:53)
[2017-04-17] MEDS ORDERED: Metoprolol Succinate XL TAB* 50 MG PO SCH (09:00)
[2017-04-17 09:42] LABS: BUN/Creatinine Ratio 26.1 (8-20); Calcium 8.8 mg/dL (8.6-10.3); EGFR African American 144.1 (>60); EGFR Non-African American 112.1 (>60); Potassium 3.6 mmol/L (3.5-5.0)
--- NOTE | 2017-04-17 14:58 | PN ---
Subjective Date of Service: 04/15/17 Interval History: . no chest pain saw briefly at stress test d/w Dr. Alexis and Dr. Lucero. Family History: Unchanged from Admission Social History: Unchanged from Admission Past Medical History: Unchanged from Admission Objective Active Medications: . Acetaminophen (Tylenol Tab*) 650 mg PO Q4H PRN PRN Reason: FEVER/PAIN Aspirin (Aspirin Low Dose Tab*) 81 mg PO QAM [facility] Last Admin: 04/17/17 08:53 Dose: 81 mg Bumetanide (Bumex Tab*) 2 mg PO QAM [facility] Last Admin: 04/17/17 08:53 Dose: 2 mg Dextrose (D50w Syringe 50 Ml*) 12.5 gm IV PUSH .FOR FS < 60 - SS PRN PRN Reason: FS < 60 Enoxaparin Sodium (Lovenox(*)) 100 mg SUBCUT ONCE ONE Stop: 04/17/17 17:01 Insulin Human Lispro (Humalog*) 0 units SUBCUT Q6H [facility] PRN Reason: Protocol Last Admin: 04/17/17 12:19 Dose: 15 units Isosorbide Mononitrate (Imdur Er Tab*) 30 mg PO DAILY [facility] Last Admin: 04/17/17 08:53 Dose: 30 mg Metoprolol Succinate (Toprol Xl Tab*) 50 mg PO DAILY [facility] Last Admin: 04/17/17 08:53 Dose: 50 mg Oxycodone/Acetaminophen (Percocet 5/325 Tab*) 1 tab PO Q4H PRN PRN Reason: Pain . Vital Signs 04/15/17 04/15/17 04/15/17 15:38 20:00 20:30 Temperature 98.1 F 97.9 F Pulse Rate 69 82 Respiratory 20 17 17 Rate Blood Pressure 111/53 114/66 (mmHg) O2 Sat by Pulse 100 98 Oximetry Oxygen Devices in Use Now: Nasal Cannula Appearance: NAD Eyes: No Scleral Icterus Ears/Nose/Mouth/Throat: Clear Oropharnyx Neck: NL Appearance and Movements; NL JVP Respiratory: Symmetrical Chest Expansion and Respiratory Effort Cardiovascular: NL Sounds; No Murmurs; No JVD Abdominal: - - obese Lymphatic: No Cervical Adenopathy Extremities: - - 1+ extremity edema + baseline wounds Skin: - - + known wounds Neurological: Alert and Oriented x 3 Lines/Tubes/Other Access: Clean, Dry and Intact Peripheral IV Nutrition: Taking PO's Result Diagrams: 04/16/17 10:12 04/17/17 05:55 Microbiology and Other Data: Microbiology 04/14/17 23:15 Urine Culture - Final Urine Enterococcus Faecalis Assess/Plan/Problems-Billing . Assessment: 76 yo man with chest pain, NSTEMI, and abnomal LFT's and concern for liver lesion and elevated tbili. . - Patient Problems (1) NSTEMI (non-ST elevated myocardial infarction) Current Visit: Yes Status: Acute Priority: High Code(s): I21.4 - NON-ST ELEVATION (NSTEMI) MYOCARDIAL INFARCTION Comment: - cardiology consult appreciated - heparin gtt - trop peaked at just over 0.5 (NSTEMI definition) - BB - stress test pending - ASA (2) Insulin dependent diabetes mellitus Current Visit: No Status: Chronic Priority: High Code(s): E11.9 - TYPE 2 DIABETES MELLITUS WITHOUT COMPLICATIONS; Z79.4 - JAIL (CURRENT) USE OF INSULIN Comment: - Controlled. - Continue Lantus and Lispro SS. - patient may adjust doses within 5 units of what SS suggests (3) Wound of lower extremity Current Visit: No Status: Chronic Priority: High Code(s): S81.809A - UNSPECIFIED OPEN WOUND, UNSPECIFIED LOWER LEG, INIT ENCNTR Comment: Continue home wound care regimen, pt followed at wound care clinic. (4) Hyperbilirubinemia Current Visit: Yes Status: Acute Priority: High Code(s): E80.6 - OTHER DISORDERS OF BILIRUBIN METABOLISM Comment: - Concerning for active liver process, i.e. cirhosis +/- inflammation - Liver MRI to examine - Liver U/S indicates possible new mass in setting of h/o HCC.
--- NOTE | 2017-04-17 15:03 | PN ---
Subjective Date of Service: 04/16/17 Interval History: . Patient returned from MRI --> bile duct stricture Stress test yesterday was intermediate risk, but consensus is to pursue medical management for now. Family History: Unchanged from Admission Social History: Unchanged from Admission Past Medical History: Unchanged from Admission Objective Active Medications: . Acetaminophen (Tylenol Tab*) 650 mg PO Q4H PRN PRN Reason: FEVER/PAIN Aspirin (Aspirin Low Dose Tab*) 81 mg PO QAM [facility] Last Admin: 04/17/17 08:53 Dose: 81 mg Bumetanide (Bumex Tab*) 2 mg PO QAM [facility] Last Admin: 04/17/17 08:53 Dose: 2 mg Dextrose (D50w Syringe 50 Ml*) 12.5 gm IV PUSH .FOR FS < 60 - SS PRN PRN Reason: FS < 60 Enoxaparin Sodium (Lovenox(*)) 100 mg SUBCUT ONCE ONE Stop: 04/17/17 17:01 Insulin Human Lispro (Humalog*) 0 units SUBCUT Q6H [facility] PRN Reason: Protocol Last Admin: 04/17/17 12:19 Dose: 15 units Isosorbide Mononitrate (Imdur Er Tab*) 30 mg PO DAILY [facility] Last Admin: 04/17/17 08:53 Dose: 30 mg Metoprolol Succinate (Toprol Xl Tab*) 50 mg PO DAILY [facility] Last Admin: 04/17/17 08:53 Dose: 50 mg Oxycodone/Acetaminophen (Percocet 5/325 Tab*) 1 tab PO Q4H PRN PRN Reason: Pain . Vital Signs 04/16/17 04/16/17 04/16/17 15:38 20:00 20:30 Temperature 98.1 F 97.9 F Pulse Rate 69 82 Respiratory 20 17 17 Rate Blood Pressure 111/53 114/66 (mmHg) O2 Sat by Pulse 100 98 Oximetry 04/17/17 04/17/17 04/17/17 00:48 07:53 08:00 Temperature 97.6 F 98.2 F Pulse Rate 73 67 Respiratory 20 18 18 Rate Blood Pressure 121/56 119/53 (mmHg) O2 Sat by Pulse 97 98 Oximetry Oxygen Devices in Use Now: Nasal Cannula Appearance: NAD Eyes: No Scleral Icterus Ears/Nose/Mouth/Throat: Clear Oropharnyx Neck: NL Appearance and Movements; NL JVP Respiratory: Symmetrical Chest Expansion and Respiratory Effort, Clear to Auscultation Cardiovascular: NL Sounds; No Murmurs; No JVD Lymphatic: No Cervical Adenopathy Extremities: - - 1+ peripheral edema Skin: - - chronic wounds, unchanged Neurological: Alert and Oriented x 3 Lines/Tubes/Other Access: Clean, Dry and Intact Peripheral IV Nutrition: Taking PO's Result Diagrams: 04/16/17 10:12 04/17/17 05:55 Microbiology and Other Data: Microbiology 04/14/17 23:15 Urine Culture - Final Urine Enterococcus Faecalis Assess/Plan/Problems-Billing . Assessment: 76 yo man with chest pain, NSTEMI, and abnomal LFT's and elevated tbili with common bile duct stricture. . - Patient Problems (1) NSTEMI (non-ST elevated myocardial infarction) Current Visit: Yes Status: Acute Priority: High Code(s): I21.4 - NON-ST ELEVATION (NSTEMI) MYOCARDIAL INFARCTION Comment: - cardiology consult appreciated - heparin gtt off; dc on lovenox to stop before ERCP next week. - trop peaked at just over 0.5 (NSTEMI definition) - BB/nitrate - stress test --> intermediate risk. - ASA (2) Hyperbilirubinemia Current Visit: Yes Status: Acute Priority: High Code(s): E80.6 - OTHER DISORDERS OF BILIRUBIN METABOLISM Comment: - Liver MRI shows common bile duct stricture --> recommend ERCP to stent/dilate. - Liver U/S indicates possible new mass in setting of h/o HCC, MRI corroborates , but is not compressive (separate issue from stricture). This can/should be handled separately. (3) Common bile duct (CBD) stricture Current Visit: Yes Status: Acute Priority: High Code(s): K83.1 - OBSTRUCTION OF BILE DUCT Comment: - cause of elevated bilirubin (4) Insulin dependent diabetes mellitus Current Visit: No Status: Chronic Priority: High Code(s): E11.9 - TYPE 2 DIABETES MELLITUS WITHOUT COMPLICATIONS; Z79.4 - RESIDENTIAL (CURRENT) USE OF INSULIN Comment: - Controlled. - Continue Lantus and Lispro SS. - patient may adjust doses within 5 units of what SS suggests (5) Wound of lower extremity Current Visit: No Status: Chronic Priority: High Code(s): S81.809A - UNSPECIFIED OPEN WOUND, UNSPECIFIED LOWER LEG, INIT ENCNTR Comment: Continue home wound care regimen, pt followed at wound care clinic. Status and Disposition: Plan to dc home for outpatient ERCP on Wednesday -- we can observe patient after that overnight.
--- NOTE | 2017-04-17 15:04 | PN ---
Hospitalist Progress Note . HOSPITALIST DISCHARGE NOTE: See dc instructions and summary by me. Patient stable for dc dc instructions reviewed with the patient at the bedside. DC patient home today.
[2017-04-17] MEDS ORDERED: Enoxaparin(*) 100 MG/ML SYR SUBCUT ONE (17:00)
--- NOTE | 2017-04-17 21:22 | DS ---
CC: Micah Barker D.O.; Dr. Cross; Dr. Alexis; Dr. Yañez DISCHARGE SUMMARY: DATE OF ADMISSION: 04/14/17 DATE OF DISCHARGE: 04/17/17 STATUS DURING HOSPITALIZATION: Inpatient. PRIMARY CARE PROVIDER: Micah Barker D.O. GI POCKET CUTTER: Dr. Aries Cross. PRODUCT SUPPORT REPRESENTATIVE: Dr. García Alexis. PRODUCT DEVELOPMENT ACTUARY: Dr. Rufus Yañez. PRINCIPAL DISCHARGE DIAGNOSES: 1. Non-ST elevation myocardial infarction with chest pain secondary to coronary artery disease/acute coronary syndrome with decision for medical management ongoing. 2. Hyperbilirubinemia secondary to common bile duct stricture characterized on contrast enhanced MRI with plan for ERCP and dilatation/stenting next week by Dr. Aries Cross. 3. Liver nodule/mass requiring further workup following ERCP and stabilization of cardiac regimen. SECONDARY DIAGNOSES: 1. Known peripheral vascular disease status post angioplasty of left leg with subsequent development of left heel ulcer and ongoing treatment at [facility]. 2. History of bilateral lower extremity ulcers - Methicillin-resistant Staphylococcus aureus positive. 3. Proctitis related to history of prostate cancer with prolonged diarrhea in February 2007. 4. Initial stage skin breakdown in sacral area posteriorly. 5. History of adenocarcinoma of the liver status post TheraSphere radiation to 2 tumors in 2010. 6. Neurogenic bladder. 7. Prostate cancer. 8. Type 2 diabetes - insulin dependent. 9. Coronary artery disease, status post coronary artery bypass grafting. 10. Diabetic neuropathy with insensitivity bilateral lower extremities distally with bilateral leg edema. 11. Chronic atrial fibrillation with subtherapeutic INR using Coumadin at fixed doses. 12. Obstructive sleep apnea - not on CPAP. 13. Obesity. 14. Degenerative joint disease. 15. History of left total hip replacement, right total knee replacement and right total hip replacement. 16. History of transurethral resection of the prostate. 17. History of appendectomy/cholecystectomy. 18. History of negative stress test in 2012. DISCHARGE MEDICATION REGIMEN: 1. Start enoxaparin at 0.8 mg/kg with 100 mg subcu b.i.d. to start evening of 04/17/17 and stop after the morning dose the day before ERCP (currently April 19) . 2. Continue lispro insulin sliding scale as per home dose - patient uses own judgment. 3. Bumex 2 mg by mouth in the morning. 4. Aspirin 81 mg by mouth in the morning. 5. Multivitamin 2 tabs by mouth in the morning. 6. B-complex with biotin and folic acid 1 tab by mouth once daily. 7. Co-enzyme Q10 200 mg by mouth in the morning. 8. Vision Essentials - 4 tabs orally every morning. 9. Cardio Vital Plus 45 drops orally every morning. 10. Metformin 1000 mg by mouth daily. 11. Acetaminophen 650 mg by mouth every 4 hours as needed for pain/fever. 12. [place]-3 fatty acids 1 capsule by mouth once daily. 13. Imdur extended release 30 mg by mouth daily. 14. Metoprolol succinate XL 50 mg by mouth daily. HISTORY OF PRESENT ILLNESS AND HOSPITAL COURSE: Please see the H and P by Dr. Emma Lucero on 04/14/17 as well as the cardiology, oncology, and GI consultations during this hospitalization by the physicians listed in this document. 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 There was concern of muscle strain because the patient was moving books in his home. However, he woke up in the middle of the night complaining of severe localized pain in the chest radiating to both arms and was brought to the hospital. He received nitroglycerin and the pain decreased to 2/10 in intensity. There was no accompanying symptoms including shortness of breath. The patient was placed on observation status and his troponin was followed and cecile to the level qualifying as a non-ST elevation DE. He peaked at 0.67 on 04/14/17. His EKG never demonstrated ST elevations. Concurrently his LFTs were noted to be abnormal and a liver ultrasound demonstrated a potential mass. His total bilirubin on April 14 was 4 and a MRI (as suggested by the initial liver ultrasound for better characterization) demonstrated a common bile duct stricture. Separately, there was a small hypervascular lesion noted in the right hepatic lobe during the ultrasound but this was not visualized in the MRI and the consensus is that the biliary duct stricture is the sole cause of the hyperbilirubinemia. The patient 's bilirubin was trended and peaked at 6.8 on 04/16/17 and decreased spontaneously to 5.1 by 04/17/17. The patient's pruritus, which was increasing with his bilirubin, also improved. He has an elevated alk phos at 697 and abnormal AST and ALT values, although those values are decreasing as well and at the day of discharge are 88 and 76 respectively. The patient did proceed with a cardiac nuclear stress test which demonstrated a decreased ejection fraction with stress and septal hypokinesia, as well as moderate size fixed defect of the lateral wall suggestive of his previous infarct, as well as a small apical reversible defect suggestive of a small area of ischemia. This was interpreted as 'intermediate risk', though given the need for intervention on the patient's biliary stricture, conservative/medical management is the current strategy. The patient was treated with IV heparin initially. He was treated with a beta-priya and nitrates and discharged on Lovenox with the intention to stop before his ERCP next week. His warfarin will be discontinued. Following his ERCP, the patient has agreed to switch to Eliquis - 2.5 mg by mouth twice daily. The patient will not be placed on antiplatelet therapy. He will continue on aspirin and NOAC. 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 He is at his baseline according to him. He is eager to go home and so he will be discharged today in stable condition with intent to return for his ERCP on Wednesday. Again, he will stop his Lovenox after the Wednesday morning dose and will restart Eliquis following his ERCP. He understands he will be placed on observation status after the ERCP on Wednesday and observed by the hospitalist service until Wednesday morning, at which time, pending demonstrated stability, he can be discharged to home. For more details regarding the hospitalization, please see the full medical record, in particularly the oncology, cardiology and GI consultations. Other questions can be directed to Dr. Horn at [phone] and then by pager. TIME SPENT: Total time taken to discharge Mr. Barker was 45 minutes, greater than half that time spent going over the discharge instructions, [id number] with the patient and communicating the plan of care to the patient's son, Dr. Barker. CONDITION ON DISCHARGE: Stable. [id number]/[facility] #: [id number] MTDD
--- NOTE | 2017-04-19 10:49 | ED ---
Charles Flynn [place], scribed for Wu Lynn MD on 04/14/17 at 0508 . HPI Chest Pain - HPI Summary HPI Summary: Patient is a 76 y/o M who presents to the ED per EMS with crushing 4/10 mid- sternal CP since 0230 today. He denies SOB, nausea, diaphoresis, palpations, or jaw discomfort, but reports numbness and tingling. He states that CP radiates into fingers. He received NTG per EMS [facility]. Pt has a hx of neuropathy, but he states that numbness is aggravated. He also states that his suspicion is musculoskeletal as he was moving a lot of books today. PMHx significant of A fib , [place], CABG, and two stent placements in 1997. His BP was 112/56 upon examination. Pt reports he is on Warfarin and ASA. - History of Current Complaint Chief Complaint: EDChestPainROMI Time Seen by Provider: 04/14/17 05:02 Hx Obtained From: Patient, EMS Onset/Duration: Started Hours Ago, Atraumatic, Still Present Timing: Intermittent Initial Severity: Moderate Current Severity: Moderate Pain Intensity: 6 Pain Scale Used: 0-10 Numeric Chest Pain Location: Mid Sternal Chest Pain Radiates: Yes Chest Pain Radiates To:: Other - Fingers. Character: Crushing Aggravating Factor(s): Nothing Alleviating Factor(s): Nothing Associated Signs and Symptoms: Positive: Chest Pain, Numbness, Tingling - Additional Pertinent History Primary Care Physician: [id number] - Allergy/Home Medications Allergies/Adverse Reactions: Allergies Allergy/AdvReac Type Severity Reaction Status Date / Time No Known Allergies Allergy Verified 04/14/17 06:36 Home Medications: Home Medications [place] 3 Fatty Acids-[place] 6 FA [[place]-3-6-9] 1 cap PO DAILY 04/14/17 [History Confirmed 04/14/17] PMH/Surg Hx/FS Hx/Imm Hx Endocrine/Hematology History: Reports: Hx Anticoagulant Therapy - Coumadin, Hx Diabetes Denies: Hx Thyroid Disease Cardiovascular History: Reports: Hx Angina, Hx Cardiomegaly, Hx Congestive Heart Failure, Hx Coronary Artery Disease - CABG AND STENT, Hx Peripheral Vascular Disease, Other Cardiovascular Problems/Disorders - PT HAS HX CHRONIC OF ATRIAL FIB. SINCE [address] WATTS Denies: Hx Hypertension, Hx Pacemaker/ICD Respiratory History: Reports: Hx Sleep Apnea - cpap at night GI History: Reports: Hx Hiatal Hernia - PT THINKS HE "MAY HAVE A SMALL ONE" Denies: Hx Ulcer History: Reports: Hx Benign Prostatic Hyperplasia, Other Problems/ Disorders - TURP Denies: Hx Dialysis, Hx Renal Disease Musculoskeletal History: Reports: Hx Arthritis - MOSTLY WEIGHT RELATED, Hx Back Problems, Hx Bursitis, Other Musculoskeletal History - Right hip, Right Knee surgery Denies: Hx Tendonitis Sensory History: Reports: Hx Cataracts, Hx Contacts or Glasses Denies: Hx Hearing Aid Opthamlomology History: Reports: Hx Cataracts, Hx Contacts or Glasses Neurological History: Reports: Hx Nerve Disease - neuropathy Psychiatric History: Denies: Hx Panic Disorder - Cancer History Cancer Type, Location and Year: Hepatocellular liver CA, Prostate CA Hx Chemotherapy: No Hx Radiation Therapy: Yes - Surgical History Surgery Procedure, Year, and Place: total Right knee replacement, total Right hip, [place], [place], CABG 1997, TURP,nasal septum Hx Anesthesia Reactions: No Infectious Disease History: Reports: Hx of Known/Suspected MRSA - Family History Known Family History: Positive: Cardiac Disease - [place]. , Other - [place]. - Social History Alcohol Use: None Hx Substance Use: No Substance Use Type: Reports: None Hx Tobacco Use: No Smoking Status (MU): Never Smoked Tobacco Have You Smoked in the Last Year: No Review of Systems Negative: Skin Diaphoresis ENT: Other - No jaw discomfort. Positive: Chest Pain. Negative: Palpitations Negative: Shortness Of Breath Negative: Nausea Neurological: Other - Tingling. Positive: Numbness All Other Systems Reviewed And Are Negative: Yes Physical Exam Triage Information Reviewed: Yes Vital Signs On Initial Exam: Last Vital Signs 04/14/17 05:03 Temperature 97.6 F Pulse Rate 90 Respiratory 20 Rate Blood Pressure 112/56 (mmHg) O2 Sat by Pulse 100 Oximetry Last Vital Signs 04/14/17 04/14/17 04/14/17 05:03 05:30 05:32 Temperature 97.6 F Pulse Rate 90 87 86 Respiratory 20 Rate Blood Pressure 112/56 99/65 117/60 (mmHg) O2 Sat by Pulse 100 100 100 Oximetry 04/14/17 04/14/17 04/14/17 05:37 05:40 05:45 Temperature Pulse Rate 86 85 90 Respiratory 19 16 Rate Blood Pressure 121/59 116/68 96/56 (mmHg) O2 Sat by Pulse 99 99 100 Oximetry 04/14/17 05:48 Temperature Pulse Rate 88 Respiratory Rate Blood Pressure (mmHg) O2 Sat by Pulse Oximetry Vital Signs Reviewed: Yes Appearance: Positive: Well-Appearing, Pain Distress - Mild. Skin: Positive: Warm, Skin Color Reflects Adequate Perfusion, Dry Head/Face: Positive: Normal Head/Face Inspection Eyes: Positive: EOMI, JOSE Neck: Positive: Supple, Nontender Respiratory/Lung Sounds: Positive: Clear to Auscultation, Breath Sounds Present Cardiovascular: Positive: RRR Abdomen Description: Positive: Nontender, Soft Bowel Sounds: Positive: Present Musculoskeletal: Positive: Strength/ROM Intact, Other - Erythema of RLE and LLE. Pedal edema. Neurological: Positive: Normal, Sensory/Motor Intact, Alert, Oriented to Person Place, Time Psychiatric: Positive: Affect/Mood Appropriate Diagnostics - Vital Signs Vital Signs Temp Pulse Resp BP Pulse Ox 04/14/17 15:48 97.5 F 91 17 114/70 100 04/14/17 11:52 97.5 F 71 18 114/85 100 04/14/17 08:40 104/52 04/14/17 08:35 84 23 108/54 100 04/14/17 08:33 98.1 F 88 18 131/64 100 04/14/17 08:30 85 15 91/53 100 04/14/17 08:25 80 15 117/86 99 04/14/17 08:20 79 15 106/63 98 04/14/17 08:15 79 17 107/66 99 04/14/17 08:10 89 20 107/62 99 04/14/17 08:05 84 15 108/67 100 04/14/17 08:00 87 22 100 04/14/17 07:55 85 17 111/67 100 04/14/17 07:50 88 19 109/63 100 04/14/17 07:45 81 17 110/62 99 04/14/17 07:40 78 17 107/62 98 04/14/17 07:30 78 23 105/57 97 04/14/17 07:25 80 21 100/56 96 04/14/17 07:20 81 15 106/60 99 04/14/17 07:15 83 17 108/63 100 04/14/17 07:10 81 20 112/56 99 04/14/17 07:05 84 15 112/64 99 04/14/17 07:00 88 20 114/69 99 04/14/17 06:55 86 20 105/59 100 04/14/17 06:50 82 18 113/51 100 04/14/17 06:45 83 15 99/51 100 04/14/17 06:40 82 15 102/64 100 04/14/17 06:35 79 21 105/61 100 04/14/17 06:30 81 18 102/52 99 04/14/17 06:28 83 18 97/52 99 04/14/17 06:25 82 20 93/50 99 04/14/17 06:20 89 32 104/55 97 04/14/17 06:15 81 15 93/47 100 04/14/17 06:10 84 16 103/63 98 04/14/17 06:07 86 15 111/58 98 04/14/17 06:05 82 15 97/60 98 04/14/17 06:00 85 18 103/53 99 04/14/17 05:57 85 16 102/59 100 04/14/17 05:55 83 20 111/63 98 04/14/17 05:50 85 15 108/57 98 04/14/17 05:48 88 04/14/17 05:45 90 16 96/56 100 04/14/17 05:40 85 19 116/68 99 04/14/17 05:37 86 121/59 99 04/14/17 05:32 86 117/60 100 04/14/17 05:30 87 99/65 100 04/14/17 05:03 97.6 F 90 20 112/56 100 - Laboratory Lab Results: Lab Results 04/14/17 04/14/17 04/14/17 Range/Units 05:23 05:23 05:23 WBC 6.2 (3.5-10.8) 10^3/ul RBC 3.83 L (4.0-5.4) 10^6/ul Hgb 11.0 L (14.0-18.0) g/dl Hct 33 L (42-52) % MCV 85 (80-94) fL MCH 29 (27-31) pg MCHC 34 (31-36) g/dl RDW 16 H (10.5-15) % Plt Count 169 (150-450) 10^3/ul MPV 8 (7.4-10.4) um3 Neut % (Auto) 80.0 (38-83) % Lymph % (Auto) 10.1 L (25-47) % [place]yer % (Auto) 7.2 (1-9) % Eos % (Auto) 2.5 (0-6) % Baso % (Auto) 0.2 (0-2) % Absolute Neuts (auto) 4.9 (1.5-7.7) 10^3/ul Absolute Lymphs (auto) 0.6 L (1.0-4.8) 10^3/ul Absolute Monos (auto) 0.4 (0-0.8) 10^3/ul Absolute Eos (auto) 0.2 (0-0.6) 10^3/ul Absolute Basos (auto) 0 (0-0.2) 10^3/ul Absolute Nucleated RBC 0 10^3/ul Nucleated RBC % 0 INR (Anticoag Therapy) 1.14 H (0.89-1.11) APTT 30.7 (26.0-36.3) seconds D-Dimer, Quantitative < 200 (Less Than 230) ng/mL Sodium 132 L (133-145) mmol/L Potassium 3.7 (3.5-5.0) mmol/L Chloride 97 L (101-111) mmol/L Carbon Dioxide 29 (22-32) mmol/L Anion Gap 6 (2-11) mmol/L BUN 27 H (6-24) mg/dL Creatinine 0.77 (0.67-1.17) mg/dL Est GFR ( Amer) 127.0 (>60) Est GFR (Non-Af Amer) 98.8 (>60) BUN/Creatinine Ratio 35.1 H (8-20) Glucose 140 H (70-100) mg/dL POC Glucose (mg/dL) (74-106) mg/dL Lactic Acid (0.5-2.0) mmol/L Calcium 9.3 (8.6-10.3) mg/dL Magnesium 1.8 L (1.9-2.7) mg/dL Total Bilirubin 4.00 H (0.2-1.0) mg/dL AST 80 H (13-39) U/L ALT 67 H (7-52) U/L Alkaline Phosphatase 697 H (34-104) U/L Total Creatine Kinase 10 (10-223) U/L CK-MB (CK-2) 2.8 (0.6-6.3) ng/mL Troponin I 0.02 (<0.04) ng/mL C-Reactive Protein 12.23 H (< 5.00) mg/L B-Natriuretic Peptide ( - 100) pg/mL Total Protein 7.0 (6.4-8.9) g/dL Albumin 3.8 (3.2-5.2) g/dL Globulin 3.2 (2-4) g/dL Albumin/Globulin Ratio 1.2 (1-3) Triglycerides 107 mg/dL Cholesterol 199 mg/dL LDL Cholesterol 148 mg/dL HDL Cholesterol 29.4 mg/dL Lipase 36 (11.0-82.0) U/L Tumor Marker AFP (<6.0) ng/mL TSH 1.57 (0.34-5.60) mcIU/mL Digoxin 0.2 L (0.8-2.0) ng/ml 04/14/17 04/14/17 04/14/17 Range/Units 05:23 05:23 05:23 WBC (3.5-10.8) 10^3/ul RBC (4.0-5.4) 10^6/ul Hgb (14.0-18.0) g/dl Hct (42-52) % MCV (80-94) fL MCH (27-31) pg MCHC (31-36) g/dl RDW (10.5-15) % Plt Count (150-450) 10^3/ul MPV (7.4-10.4) um3 Neut % (Auto) (38-83) % Lymph % (Auto) (25-47) % [place]yer % (Auto) (1-9) % Eos % (Auto) (0-6) % Baso % (Auto) (0-2) % Absolute Neuts (auto) (1.5-7.7) 10^3/ul Absolute Lymphs (auto) (1.0-4.8) 10^3/ul Absolute Monos (auto) (0-0.8) 10^3/ul Absolute Eos (auto) (0-0.6) 10^3/ul Absolute Basos (auto) (0-0.2) 10^3/ul Absolute Nucleated RBC 10^3/ul Nucleated RBC % INR (Anticoag Therapy) (0.89-1.11) APTT (26.0-36.3) seconds D-Dimer, Quantitative (Less Than 230) ng/mL Sodium (133-145) mmol/L Potassium (3.5-5.0) mmol/L Chloride (101-111) mmol/L Carbon Dioxide (22-32) mmol/L Anion Gap (2-11) mmol/L BUN (6-24) mg/dL Creatinine (0.67-1.17) mg/dL Est GFR ( Amer) (>60) Est GFR (Non-Af Amer) (>60) BUN/Creatinine Ratio (8-20) Glucose (70-100) mg/dL POC Glucose (mg/dL) (74-106) mg/dL Lactic Acid 1.1 (0.5-2.0) mmol/L Calcium (8.6-10.3) mg/dL Magnesium (1.9-2.7) mg/dL Total Bilirubin (0.2-1.0) mg/dL AST (13-39) U/L ALT (7-52) U/L Alkaline Phosphatase (34-104) U/L Total Creatine Kinase (10-223) U/L CK-MB (CK-2) (0.6-6.3) ng/mL Troponin I (<0.04) ng/mL C-Reactive Protein (< 5.00) mg/L B-Natriuretic Peptide 74 ( - 100) pg/mL Total Protein (6.4-8.9) g/dL Albumin (3.2-5.2) g/dL Globulin (2-4) g/dL Albumin/Globulin Ratio (1-3) Triglycerides mg/dL Cholesterol mg/dL LDL Cholesterol mg/dL HDL Cholesterol mg/dL Lipase (11.0-82.0) U/L Tumor Marker AFP 2.8 (<6.0) ng/mL TSH (0.34-5.60) mcIU/mL Digoxin (0.8-2.0) ng/ml 04/14/17 04/14/17 04/14/17 Range/Units 09:07 11:19 11:42 WBC (3.5-10.8) 10^3/ul RBC (4.0-5.4) 10^6/ul Hgb (14.0-18.0) g/dl Hct (42-52) % MCV (80-94) fL MCH (27-31) pg MCHC (31-36) g/dl RDW (10.5-15) % Plt Count (150-450) 10^3/ul MPV (7.4-10.4) um3 Neut % (Auto) (38-83) % Lymph % (Auto) (25-47) % [place]yer % (Auto) (1-9) % Eos % (Auto) (0-6) % Baso % (Auto) (0-2) % Absolute Neuts (auto) (1.5-7.7) 10^3/ul Absolute Lymphs (auto) (1.0-4.8) 10^3/ul Absolute Monos (auto) (0-0.8) 10^3/ul Absolute Eos (auto) (0-0.6) 10^3/ul Absolute Basos (auto) (0-0.2) 10^3/ul Absolute Nucleated RBC 10^3/ul Nucleated RBC % INR (Anticoag Therapy) (0.89-1.11) APTT (26.0-36.3) seconds D-Dimer, Quantitative (Less Than 230) ng/mL Sodium (133-145) mmol/L Potassium (3.5-5.0) mmol/L Chloride (101-111) mmol/L Carbon Dioxide (22-32) mmol/L Anion Gap (2-11) mmol/L BUN (6-24) mg/dL Creatinine (0.67-1.17) mg/dL Est GFR ( Amer) (>60) Est GFR (Non-Af Amer) (>60) BUN/Creatinine Ratio (8-20) Glucose (70-100) mg/dL POC Glucose (mg/dL) 269 H (74-106) mg/dL Lactic Acid (0.5-2.0) mmol/L Calcium (8.6-10.3) mg/dL Magnesium (1.9-2.7) mg/dL Total Bilirubin (0.2-1.0) mg/dL AST (13-39) U/L ALT (7-52) U/L Alkaline Phosphatase (34-104) U/L Total Creatine Kinase (10-223) U/L CK-MB (CK-2) (0.6-6.3) ng/mL Troponin I 0.25 H* 0.37 H* (<0.04) ng/mL C-Reactive Protein (< 5.00) mg/L B-Natriuretic Peptide ( - 100) pg/mL Total Protein (6.4-8.9) g/dL Albumin (3.2-5.2) g/dL Globulin (2-4) g/dL Albumin/Globulin Ratio (1-3) Triglycerides mg/dL Cholesterol mg/dL LDL Cholesterol mg/dL HDL Cholesterol mg/dL Lipase (11.0-82.0) U/L Tumor Marker AFP (<6.0) ng/mL TSH (0.34-5.60) mcIU/mL Digoxin (0.8-2.0) ng/ml 04/14/17 04/14/17 Range/Units 16:39 17:35 WBC (3.5-10.8) 10^3/ul RBC (4.0-5.4) 10^6/ul Hgb (14.0-18.0) g/dl Hct (42-52) % MCV (80-94) fL MCH (27-31) pg MCHC (31-36) g/dl RDW (10.5-15) % Plt Count (150-450) 10^3/ul MPV (7.4-10.4) um3 Neut % (Auto) (38-83) % Lymph % (Auto) (25-47) % [place] % (Auto) (1-9) % Eos % (Auto) (0-6) % Baso % (Auto) (0-2) % Absolute Neuts (auto) (1.5-7.7) 10^3/ul Absolute Lymphs (auto) (1.0-4.8) 10^3/ul Absolute Monos (auto) (0-0.8) 10^3/ul Absolute Eos (auto) (0-0.6) 10^3/ul Absolute Basos (auto) (0-0.2) 10^3/ul Absolute Nucleated RBC 10^3/ul Nucleated RBC % INR (Anticoag Therapy) (0.89-1.11) APTT (26.0-36.3) seconds D-Dimer, Quantitative (Less Than 230) ng/mL Sodium (133-145) mmol/L Potassium (3.5-5.0) mmol/L Chloride (101-111) mmol/L Carbon Dioxide (22-32) mmol/L Anion Gap (2-11) mmol/L BUN 23 (6-24) mg/dL Creatinine (0.67-1.17) mg/dL Est GFR ( Amer) (>60) Est GFR (Non-Af Amer) (>60) BUN/Creatinine Ratio (8-20) Glucose (70-100) mg/dL POC Glucose (mg/dL) 242 H (74-106) mg/dL Lactic Acid (0.5-2.0) mmol/L Calcium (8.6-10.3) mg/dL Magnesium (1.9-2.7) mg/dL Total Bilirubin (0.2-1.0) mg/dL AST (13-39) U/L ALT (7-52) U/L Alkaline Phosphatase (34-104) U/L Total Creatine Kinase (10-223) U/L CK-MB (CK-2) (0.6-6.3) ng/mL Troponin I 0.67 H* (<0.04) ng/mL C-Reactive Protein (< 5.00) mg/L B-Natriuretic Peptide ( - 100) pg/mL Total Protein (6.4-8.9) g/dL Albumin (3.2-5.2) g/dL Globulin (2-4) g/dL Albumin/Globulin Ratio (1-3) Triglycerides mg/dL Cholesterol mg/dL LDL Cholesterol mg/dL HDL Cholesterol mg/dL Lipase (11.0-82.0) U/L Tumor Marker AFP (<6.0) ng/mL TSH (0.34-5.60) mcIU/mL Digoxin (0.8-2.0) ng/ml Result Diagrams: 04/16/17 10:12 04/17/17 05:55 Diagnostic Studies Comment: Trop 1: 0.02 Lab Statement: Any lab studies that have been ordered have been reviewed, and results considered in the medical decision making process. - Radiology CXR Radiology Interpretation Completed By: ED Physician, Radiologist - IMPRESSION: see EMR pending. - EKG 0510 EKG Interpretation: A Fib @ 79 bpm. RBBB. No significant changes from EKG on . Re-Evaluation - Re-Evaluation First Eval Re-Evaluation Time: 05:55 Comment: Informed pt of discussion with Dr. Mendoza (cardiology). Second Eval Re-Evaluation Time: 06:32 Change: Improved Comment: Discussed imaging results and plan. Chest Pain Course/Dx - Course Course Of Treatment: NO CRITICAL CARE TIME Assessment/Plan: ADMIT HOSPITALIST STABLE. - Diagnoses Provider Diagnoses: Chest pain - Provider Notifications Discussed Care Of Patient With: Arron Mendoza Time Discussed With Above Provider: 05:46 Instructed by Provider To: Other - Discussed case. He reviewed current EKG with prior one. He did not see any significant changes or reason for concern. Dr. Lucero (hospitalist) @ 0646. Will admit. Discharge - Discharge Plan Condition: Good Disposition: ADMITTED TO [facility] documentation as recorded by the Charles andujar [place] accurately reflects the service I personally performed and the decisions made by me, Wu Lynn MD.
== END 2017-04-17 18:00 | disposition home or self-care (01) | DRG 280 ==
LOC: ED 05:01 → MEDTELE 07:38 → OBSVTOIN 17:38
PROVIDERS: ADMIT Internal Medicine; ATTEND Internal Medicine
DX: I21.4 Non-ST elevation (NSTEMI) myocardial infarction (principal); K83.1 Obstruction of bile duct; E11.51 Type 2 diabetes mellitus with diabetic peripheral angiopathy without gangrene; E11.42 Type 2 diabetes mellitus with diabetic polyneuropathy; L97.429 Non-pressure chronic ulcer of left heel and midfoot with unspecified severity; R16.0 Hepatomegaly, not elsewhere classified; L97.919 Non-pressure chronic ulcer of unspecified part of right lower leg with unspecified severity; I25.810 Atherosclerosis of coronary artery bypass graft(s) without angina pectoris; E80.6 Other disorders of bilirubin metabolism; I48.2 Chronic atrial fibrillation; Z79.01 Long term (current) use of anticoagulants; E11.622 Type 2 diabetes mellitus with other skin ulcer; L98.411 Non-pressure chronic ulcer of buttock limited to breakdown of skin; N31.9 Neuromuscular dysfunction of bladder, unspecified; G47.33 Obstructive sleep apnea (adult) (pediatric); M19.90 Unspecified osteoarthritis, unspecified site; Z85.46 Personal history of malignant neoplasm of prostate; Z85.05 Personal history of malignant neoplasm of liver; Z96.643 Presence of artificial hip joint, bilateral; Z96.651 Presence of right artificial knee joint; E11.621 Type 2 diabetes mellitus with foot ulcer; K62.89 Other specified diseases of anus and rectum; Z79.84 Long term (current) use of oral hypoglycemic drugs; Z79.1 Long term (current) use of non-steroidal anti-inflammatories (NSAID); Z79.82 Long term (current) use of aspirin; Z79.4 Long term (current) use of insulin; Z79.899 Other long term (current) drug therapy; Z83.3 Family history of diabetes mellitus; Z82.49 Family history of ischemic heart disease and other diseases of the circulatory system; I45.10 Unspecified right bundle-branch block; E66.01 Morbid (severe) obesity due to excess calories; Z68.39 Body mass index [BMI] 39.0-39.9, adult; I36.1 Nonrheumatic tricuspid (valve) insufficiency
CPT/HCPCS: 36415; 71010; 74178; 74183; 76705; 78452; 80048; 80053; 80061; 80076; 80162; 81003; 81015; 82105; 82378; 82550; 82553; 83605; 83690; 83735; 83880; 84443; 84484; 84520; 85025; 85379; 85610; 85730; 86140; 87077; 87086; 87186; 93005; 93017; 93306; 99223; A9270-GY; A9502; A9581; J0280; J1644; J1650; J2270; J2405; J2785; Q9967

== ENCOUNTER 2017-04-20 11:12 | Observation (INO) | payer MEDICARE ==
[~2017-04-20 11:12] MED LIST: Buffered Lidocaine 0.9% SYRIN* 5 ML/SYR SYRINGE INTRADERM ONE; Famotidine TAB* 20 MG PO ONE; Metoclopramide TAB* 10 MG PO ONE; Sodium Citrate/Citric Acid* 15 ML UDC PO ONE
[2017-04-20] MEDS ORDERED: Metoclopramide TAB* 10 MG ONE (11:48)
[2017-04-20] MEDS ORDERED: Buffered Lidocaine 0.9% SYRIN* 5 ML/SYR SYRINGE ONE (11:48)
[2017-04-20] MEDS ORDERED: Sodium Citrate/Citric Acid* 15 ML UDC ONE (11:48)
[2017-04-20] MEDS ORDERED: Famotidine TAB* 20 MG ONE (11:48)
[2017-04-20] MEDS ORDERED: Insulin LISPRO* 1 UNITS UNIT SUBCUT ONE (12:07)
[2017-04-20] MEDS ORDERED: Piperacillin/Tazobactam VIAL*) 3.375 GM VIAL (COMPD & OVERRIDE) ONE (12:47)
[2017-04-20] MEDS ORDERED: Propofol* 10 MG/ML 20 ML BTL IV PUSH ONE (13:31)
[2017-04-20] MEDS ORDERED: Succinylcholine* 20 MG/ML 10 ML VIAL ONE (13:31)
[2017-04-20] MEDS ORDERED: Lidocaine 2% PF * 5 ML VIAL ONE (13:31)
[2017-04-20] MEDS ORDERED: fentaNYL* 50 MCG/ML 2 ML VIAL (100 MCG VIAL) ONE (13:31)
[2017-04-20] MEDS ORDERED: Phenylephrine IV* 40 MCG/ML 10 ML SYRINGE ONE (14:18)
[2017-04-20] MEDS ORDERED: fentaNYL* 50 MCG/ML 2 ML VIAL (100 MCG VIAL) IV PRN (14:23)
--- NOTE | 2017-04-20 15:45 | RAD ---
INDICATION: Biliary dilatation. Common bile duct stent placement. Sphincterotomy. COMPARISON: No relevant prior exams available on the [facility] PACS for comparison. TECHNIQUE: 3.5 minutes fluoroscopy. ERCP performed by the endoscopy service. FINDINGS: Postsurgical change of cholecystectomy. Retrograde cholangiogram performed. Only minimal prominence of the intrahepatic ducts. Suggestion of a long segment stricture of the common bile duct at the proximal segment above the level of the intrapancreatic segment of the duct. No characteristic filling defects suspicious for bile duct stones evident. Final images are remarkable for a poorly conspicuous small-diameter plastic biliary stent. IMPRESSION: Long segment stricture at the common bile duct above the level of the intrapancreatic segment. Biliary stent placed. Findings reviewed with Dr. Cross by telephone 04/20/2017 3:41 PM EDT CPT II Codes: 6045F
[2017-04-20] MEDS ORDERED: Acetaminophen TAB* 325 MG PO PRN (17:26)
--- NOTE | 2017-04-20 19:15 | HP ---
HISTORY AND PHYSICAL: DATE OF ADMISSION: 04/20/17 CHIEF COMPLAINT: Status post ERCP. 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 Cross after he was recently diagnosed with a bile duct stricture. The patient was hospitalized recently for an NSTEMI and at that time he was noted to have a new liver lesion and abnormal liver function tests. The patient was treated medically for his NSTEMI, and this ERCP was scheduled with the plan of admitting Dr. Barker overnight for observation after the procedure. The patient was admitted to the hospital from 04/14/17 to 04/17/17 with chest pain. The patient had a troponin peak to 0.67. He was evaluated by Cardiology as well as by Dr. Alexis and Dr. Cross of Oncology and GI respectively. Due to the patient's new liver lesion and plans for ERCP, the decision was made not to undergo cardiac catheterization, but to treat medically. The patient was discharged home on Lovenox shots in addition to his cardiac medications and, as planned, he stopped taking the shots on 04/19/17 in preparation for this procedure. The plan will be for the patient to start taking Eliquis. Dr. Cross recommends beginning that 48 hours after the ERCP. The patient was evaluated in the PACU, complaining of some mild abdominal discomfort and also some discomfort in his penis with the Sosa in place. He states that since his discharge, he has been doing fairly well at home. PAST MEDICAL HISTORY: 1. History of peripheral vascular disease, status post angioplasty to the left leg, with left heel ulcer, bilateral lower extremity ulcers. 2. History of adenocarcinoma of the liver, status post TheraSphere radiation to 2 tumors in 2010, now with a new liver lesion. 3. History of neurogenic bladder, the patient self caths at home. 4. History of prostate cancer. 5. Type 2 diabetes. 6. CAD, status post CABG. 7. Diabetic neuropathy. 8. Bilateral lower extremity edema. 9. Chronic AFib. 10. THANH. 11. Obesity. 12. Degenerative joint disease. PAST SURGICAL HISTORY: 1. History of total left hip replacement. 2. Right total knee replacement. 3. Right total hip replacement. 4. TURP. 5. Appendectomy. 6. Cholecystectomy. HOME MEDICATIONS: 1. Lovenox 100 mg subcu b.i.d., which was stopped a few days ago. 2. Lispro insulin sliding scale. 3. Bumex 2 mg by mouth daily. 4. Aspirin 81 mg by mouth daily. 5. Multivitamin 2 tablets by mouth daily. 6. Toprol-XL 50 mg by mouth daily. 7. Metformin 1000 mg by mouth daily. 8. Co-enzyme Q10, 200 mg by mouth daily. 9. Cardio Plus 45, fifteen drops by mouth three times daily. 10. Vitamin B complex 1 tablet by mouth daily. 11. Tylenol p.r.n. basis. ALLERGIES: The patient has no known drug allergies. FAMILY HISTORY: Significant for diabetes and heart disease. Father with THANH. SOCIAL HISTORY: The patient denies any tobacco, alcohol or drug use. He lives by himself. His son and surrogate, Dr. Micah Barker, is his PCP. REVIEW OF SYSTEMS: A 12-point review of systems is negative except for that as noted in the HPI. The patient gets around the house mostly with a wheelchair. PHYSICAL EXAMINATION GENERAL: The patient is an elderly man, lying in bed, in no apparent distress. VITAL SIGNS: After procedure, temperature 97.0, heart rate of 70, respiratory rate of 16, O2 saturation 98% on room air, blood pressure 112/88. HEENT: Head normocephalic and atraumatic. Eyes, anicteric sclerae. ENT, dry mucous membranes. No cervical adenopathy. CARDIOVASCULAR: Irregularly irregular, normal rate. No murmurs, gallops, or rubs. LUNGS: Clear to auscultation bilaterally. No wheezes, rales, or rhonchi. ABDOMEN: Soft, nontender, nondistended. Bowel sounds positive. EXTREMITIES: The patient with bilateral lower extremity edema, some superficial ulcerations in the distal leg, left heel wound is covered, it was not undressed. Sosa in place, draining clear yellow urine. I do not appreciate any erythema or swelling of the shaft of the penis. DIAGNOSTIC STUDIES/LAB DATA: The patient is status post ERCP with stent placement. ASSESSMENT AND PLAN: Status post ERCP for bile duct stricture in a 76-year-old man with recently diagnosed stricture, newly diagnosed liver lesion, recent non- ST segment elevation myocardial infarction, history of coronary artery disease, diabetes, bilateral lower extremity ulcers, chronic atrial fibrillation. 1. Status post ERCP. Dr. Cross states the procedure went well. We will place the patient on clear liquid diet tonight and recheck a CMP tomorrow morning. 2. Coronary artery disease. Recent non-ST segment elevation myocardial infarction. Continue the patient on aspirin, metoprolol, and Imdur. Plan is to hold anticoagulation for now and the patient will start taking Eliquis at , 48 hours after this procedure. 3. Diabetes. Insulin sliding scale, check sugars a.c. and h.s. 4. Sosa discomfort. We will discontinue the Sosa and replace it. If the patient still has discomfort, we can just straight cath as he tends to do at home. 5. New liver lesion. The patient will need outpatient followup for this. 6. Atrial fibrillation. Continue metoprolol as above, holding anticoagulation. 7. DVT prophylaxis: SCDs. 8. Code status: The patient is a DNR with a trial of intubation. TIME SPENT: Total time spent on this admission 45 minutes, with over half the time spent [id number] with the patient in counseling and coordinating care. [id number]/[facility] #: [id number] JUANITA
--- NOTE | 2017-04-20 23:50 | PRO ---
DATE: 04/20/17 - ROOM #453 REFERRING PHYSICIAN: Micah Barker DO; Dr. García Alexis * PROCEDURE: ERCP with sphincterotomy and placement of common bile duct stent 8.5 - Egyptian 9 cm. 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 In retrospect, he says it has been itching for several weeks. In the hospital, his bilirubin diminished on the second day and thus, the urgency of ERCP seemed a little less. It seems probable that he would want to be referred elsewhere, but he elected to go for stenting here and continue with diagnostic studies including hopefully stent placements. Later, he would probably be referred out for choledochoscopy and EUS. He was seen by Dr. Benitez from Anesthesia. Postop, he will be admitted to the hospitalist service for observation. Informed consent had been obtained and conversation assisted by diagram with patient's son in attendance after a conference with prior hospitalist and Dr. Yañez, the consulting medical radiation dosimetrist. ENDOSCOPIST: Dr Cross. MEDICATIONS: General anesthesia per Dr Benitez. FINDINGS: He is a morbidly-obese, older man in no overt distress. He was placed on the side. His body was . ERCP: Esophagus - 30% views were normal. Stomach - 60% views were normal with no overt pathology including antrum during insertion, fundus during withdrawal. Duodenum - partial views of the bulb and then complete views of the second and third portion appear normal. Papilla - of average size with well-defined intramural segments. Surface of the papilla appeared normal. Initial cannulation attempts involved just a guidewire insertion and this seemed to follow the pancreatic route twice. No dye was injected. The sphincterotome was withdrawn, repositioned, bowed and inserted a little bit closer to the noon orientation with a little bit more of above. It seemed to slip in to a different orientation and then guidewire went into liver. It was deeply seated and locked. Dye insertion into the distal common duct seemed to hang up at a stricture in the mid to upper duct at about the level of clips that were present from a prior cholecystectomy. Later interpretation was that these may have been related to embolization. Further history will be obtained. The sphincterotome was then positioned over the wire proximal to the stricture and injection made. There seemed to be a single, rather bird beak type stricture. No shelf was seen. It was fairly symmetric. As mass was seen and this seemed to be outside the pancreatic portion of the duct, the next procedure was stenting. Over the guidewire, an 8.5-Egyptian 9 cm stent was placed. There was some resistance and the stent buckled somewhat, but could be seen to have reached proximal to the stricture and was draining contrast by the end of the procedure. It appeared to be in good position with the external flange about a centimeter and a half in the duodenal lumen. IMPRESSION: 1. Common bile duct stricture - further diagnostic studies to be done at a referral center later. 2. Status post cholecystectomy - the clips happened to be located exactly at the level of the stricture, though a single oblique film showed that they could be projected separate from the common bile duct and stricture. 3. History of hepatoma - significance unclear for this. [id number]/[facility] #: [id number] MTDD
[2017-04-21] MEDS ORDERED: Insulin LISPRO* 1 UNITS UNIT SUBCUT ONE ×2 (01:00→08:19)
[2017-04-21 05:09] LABS: Albumin 3.4 g/dL (3.2-5.2); BUN/Creatinine Ratio 33.9 (8-20); Calcium 8.7 mg/dL (8.6-10.3); EGFR African American 172.7 (>60); EGFR Non-African American 134.3 (>60); Globulin 2.8 g/dL (2-4); Potassium 3.7 mmol/L (3.5-5.0); Total Bilirubin 3.5 mg/dL (0.2-1.0); Total Protein 6.2 g/dL (6.4-8.9)
[2017-04-21 05:51] VITALS: BP 113/53
[2017-04-21] MEDS ORDERED: Dextrose 50% Syringe 50 ML* 25 GM/50 ML SYRINGE IV PUSH PRN (08:19)
--- NOTE | 2017-04-21 08:30 | DCNOTE ---
Patient seen this morning. Some mild epigastric discomfort but otherwise no issues. Hungry for breakfast. On exam, IRIR, s1 and s2 present, abd soft, non-distended, mild epigastric tenderness, B/L LE edema with chronic wounds Plan to discharge today. Will begin Eliquis 04/22 in the evening. He will call Dr. Alexis's office to set up an appointment. Recheck CMP on 04/26
[2017-04-21] MEDS ORDERED: Prenatal Vitamin TAB PO SCH (09:00)
[2017-04-21] MEDS ORDERED: Aspirin Low Dose CHEW TAB* 81 MG PO SCH (09:00)
[2017-04-21] MEDS ORDERED: Isosorbide Mononitrate ER TAB* 30 MG PO SCH (09:00)
[2017-04-21] MEDS ORDERED: Bumetanide TAB* 2 MG PO SCH (09:00)
[2017-04-21] MEDS ORDERED: Metoprolol Succinate XL TAB* 50 MG PO SCH (09:00)
[2017-04-21] MEDS ORDERED: metFORMIN* 1,000 MG TAB PO SCH (09:00)
--- NOTE | 2017-04-22 06:11 | DS ---
DISCHARGE SUMMARY: DATE OF ADMISSION: 04/20/17 DATE OF DISCHARGE: 04/21/17 PRIMARY CARE PHYSICIAN: Dr. Micah Barker PRINCIPAL DISCHARGE DIAGNOSIS: Status post ERCP for biliary duct stricture. DISCHARGE MEDICATION REGIMEN: 1. Eliquis 2.5 mg by mouth 2 times daily to begin in the evening on 04/22/17. 2. Cardio Vital Plus 15 drops by mouth 3 times daily. 3. Aspirin 81 mg by mouth daily. 4. Bumex 2 mg by mouth daily. 5. Insulin sliding scale as instructed by patient at home. 6. Imdur 30 mg by mouth daily. 7. Metformin 1000 mg by mouth daily. 8. Toprol XL 50 mg by mouth daily. 9. Multivitamin 2 tablets by mouth daily. 10. Otter 3 fatty acids 2 capsules by mouth daily. 11. Vision Essentials 4 tablets by mouth daily. STUDIES DONE DURING HOSPITALIZATION: ERCP performed by Dr. Cross. Common bile duct stricture noted on fluoroscopy, 9-cm stent placed. HISTORY OF PRESENT ILLNESS AND HOSPITAL SUMMARY: Please see my full history and physical for details. Briefly Mr. Barker is 76-year-old man with complicated past medical history including hypertension, CAD, type 2 diabetes, AFib, recent NSTEMI, history of adenocarcinoma of liver, status post TheraSphere radiation with new liver lesion recently found, who presented to the hospital for a planned ERCP after he was recently found to have a biliary duct stricture. The patient underwent successful ERCP and was just monitored on telemetry overnight. His labs showed an improvement in his bilirubin and alk-phos from last check 4 days ago. The patient will be discharged home with outpatient followup with Dr. Cross, Dr. Alexis and with this PCP, Dr. Barker. The patient had been taking Lovenox shots for his recent NSTEMI and stopped these for this procedure. The plan is for the patient to start taking Eliquis 2.5 mg by mouth 2 times daily beginning in the evening on 04/22/17, which is 48 hours after the procedure, as requested by Dr. Cross. Patient was ordered to have labs drawn early next week. He will need close followup as an outpatient. TIME SPENT: Total time spent on this discharge, 45 minutes. This is a summary of the hospitalization. Please see the full medical record for further details. [id number]/[facility] #: [id number] [facility]
== END 2017-04-21 11:25 | disposition home or self-care (01) ==
LOC: OR 11:12 → MEDTELE 15:40
PROVIDERS: ADMIT Internal Medicine Gastroenterology; ATTEND Hospitalist
PROC: 0F798DZ Dilation of Common Bile Duct with Intraluminal Device, Via Natural or Artificial Opening Endoscopic (ICD-10-PCS; principal; 2017-04-20 12:45)
DX: K83.1 Obstruction of bile duct (principal); I10 Essential (primary) hypertension; I25.10 Atherosclerotic heart disease of native coronary artery without angina pectoris; I48.91 Unspecified atrial fibrillation; I25.2 Old myocardial infarction; E66.9 Obesity, unspecified; I51.7 Cardiomegaly; Z85.05 Personal history of malignant neoplasm of liver; N31.9 Neuromuscular dysfunction of bladder, unspecified; Z95.1 Presence of aortocoronary bypass graft; I73.9 Peripheral vascular disease, unspecified; E11.40 Type 2 diabetes mellitus with diabetic neuropathy, unspecified; Z79.84 Long term (current) use of oral hypoglycemic drugs; Z79.01 Long term (current) use of anticoagulants
CPT/HCPCS: 36415; 74328; 80053; A9270-GY; C1769; C1876; G0378; J0330; J2543; J2704; J3010

== ENCOUNTER 2018-05-12 09:06 | Inpatient (IN) | payer MEDICARE ==
[2018-05-12] MEDS ORDERED: NS 0.9% 1000 ML* 1,000 ML IV ONE (09:42)
[2018-05-12 11:00] LABS: ABS Basophils 0 10^3/ul (0-0.2); ABS Eosinophils 0.1 10^3/ul (0-0.6); ABS Lymphocytes 0.6 10^3/ul (1.0-4.8); ABS Monocytes 0.7 10^3/ul (0-0.8); ABS Neutrophils 7.6 10^3/ul (1.5-7.7); ABS Nucleated RBC 0 10^3/ul; Eosinophil % 0.9 % (0-6); Hematocrit 32 % (42-52); Hemoglobin 10.7 g/dl (14.0-18.0); Mean Corpuscular HGB Conc 33 g/dl (31-36); Mean Corpuscular Hemoglobin 27 pg (27-31); Mean Corpuscular Volume 80 fL (80-94); Mean Platelet Volume 6.6 um3 (7.4-10.4); Nucleated Red Blood Cells % 0; Platelet Count 213 10^3/ul (150-450); Red Blood Count 4.03 10^6/ul (4.00-5.40); Red Cell Distribution Width 17 % (10.5-15)
[2018-05-12 11:07] LABS: INR 1.29 (0.77-1.02)
[2018-05-12 11:10] LABS: EGFR Non-African American 104.7 (>60)
--- NOTE | 2018-05-12 11:34 | ED ---
Nausea/Vomiting/Diarrhea HPI - HPI Summary HPI Summary: Patient is a 77-year-old male with a history of hepatocellular carcinoma, nonhealing wounds of the lower extremities, lower extremity edema, and STEMI, heart disease, and most recently a 6-7 months of diarrhea and C. diff. he presents today with increased weakness, diarrhea approximate 7-10 bowel movements daily. 6 weeks ago hospitalized for C. difficile and treated appropriately with Vancomycin. Has stated the past 2 weeks his stool cultures have been negative, however diarrhea remains. His care is generally handled by [facility]. He also endorses 3 thoracentesis with negative results over the last 1.5 months. Last thoracentesis on Wednesday where they drained 800CC's. He states these have helped his cough. Denies SOB or chest pain. Son at bedside states he no longer leaves the house due to his diarrhea, has been becoming more weak, is unable to ambulate independently d/t weakness and bilateral lower extremity edema. He has non healing wounds to the lower extremities treated by the wound care clinic. Has seen Dr. Alexis once, however his [place] care is in [place]. For his persistent diahrrea he has been taking lomotil and kayopectate without relief. He also states he is afraid to eat or drink d/t the side effects of having worsening BM's. Most recent CT chest/abd/ pelvis found no significant findings. Denies any abdominal pain, nausea, vomiting. Denies any fevers, sweats, chills or headaches. - History of Current Complaint Chief Complaint: EDNauseaVomitDiarrh Stated Complaint: DIARRHEA Time Seen by Provider: 05/12/18 09:41 Hx Obtained From: Patient, Family/Potato Loader Onset/Duration: Gradual Onset, Other - lasting months Timing: Constant Severity Initially: Severe Severity Currently: Severe Pain Intensity: 0 Pain Scale Used: 0-10 Numeric Aggravating Factor(s): Nothing Alleviating Factor(s): Nothing Nausea/Vomiting Presence: None Diarrhea Presence: Yes Diarrhea Frequency: Every 1-2 hours Diarrhea Duration: > 7 days - 6-7 months Diarrhea Characteristics: Other - soft serve icecream - Risk Factors Influenza Risk Factors: Negative Surgical Obstruction Risk Factor(s): Negative - Allergies/Home Medications Allergies/Adverse Reactions: Allergies Allergy/AdvReac Type Severity Reaction Status Date / Time No Known Allergies Allergy Verified 05/12/18 09:12 Home Medications: Home Medications Aspirin EC TAB* [Ecotrin EC Low Dose 81 MG*] 81 mg PO DAILY 05/12/18 [History Confirmed 05/12/18] Bumetanide TAB* [Bumex 2 MG TAB*] 2 mg PO DAILY 05/12/18 [History Confirmed 03/25] Calcium Carb,Gluc/Mag Ox,Gluc [Calcium Magnesium Caplet] 1 each PO DAILY [History Confirmed 05/12/18] Insulin ASPART (NF) [Novolog (NF)] 0 units SUBCUT DAILY 05/12/18 [History Confirmed 05/12/18] Isosorbide Mononitrate ER TAB* [Imdur ER TAB*] 30 mg PO DAILY 05/12/18 [History Confirmed 05/12/18] Metoprolol Tartrate TAB* [Lopressor TAB*] 25 mg PO DAILY 05/12/18 [History Confirmed 05/12/18] [place]-3 Fatty Acids (Nf) [Fish Oil (NF)] 1,000 mg PO DAILY 05/12/18 [History Confirmed 05/12/18] Turmeric Root Extract [Ra Turmeric] 1 cap PO DAILY 05/12/18 [History Confirmed 05/12/18] Vitamin B Complex TAB* [B Complex-50*] 1 tab PO DAILY 05/12/18 [History Confirmed 05/12/18] PMH/Surg Hx/FS Hx/Imm Hx Previously Healthy: No - see below Endocrine/Hematology History: Reports: Hx Anticoagulant Therapy - Coumadin, Hx Diabetes - type 2, Hx Anemia - was a few months ago, improved Denies: Hx Thyroid Disease Cardiovascular History: Reports: Hx Angina, Hx Cardiomegaly, Hx Congestive Heart Failure, Hx Coronary Artery Disease - CABG AND STENT 1997, Hx Myocardial Infarction - 1997; [place] which resulted in 2 stents placed, Hx Peripheral Vascular Disease, Other Cardiovascular Problems/Disorders - PT HAS HX CHRONIC OF ATRIAL FIB. SINCE [address] WATTS Denies: Hx Hypertension - bp always low, Hx Pacemaker/ICD Respiratory History: Reports: Hx Sleep Apnea - has not used in 1.5 years GI History: Reports: Hx Hiatal Hernia - PT THINKS HE "MAY HAVE A SMALL ONE" Denies: Hx Ulcer History: Reports: Hx Benign Prostatic Hyperplasia, Other Problems/ Disorders - TURP Denies: Hx Dialysis, Hx Renal Disease Musculoskeletal History: Reports: Hx Arthritis - MOSTLY WEIGHT RELATED, Hx Back Problems, Hx Bursitis, Other Musculoskeletal History - Right hip, Right Knee surgery Denies: Hx Tendonitis Sensory History: Reports: Hx Cataracts, Hx Contacts or Glasses Denies: Hx Hearing Aid Opthamlomology History: Reports: Hx Cataracts, Hx Contacts or Glasses Neurological History: Reports: Hx Nerve Disease - neuropathy Psychiatric History: Denies: Hx Panic Disorder - Cancer History Cancer Type, Location and Year: PROSTATE/LIVER Hx Chemotherapy: No Hx Radiation Therapy: Yes - Surgical History Surgery Procedure, Year, and Place: total Right knee replacement, total Right/ LEFT hip, [place], [place], CABG 1997, TURP,nasal septum. right carpal tunnel, right elbow surgery, laser treatment to lower back. PARTIAL RIGHT FOOT AMPUTATED 2013. [place] IN HEPATIC DUCT STENT PLACED-[employer] UNCOVERED BILIARY STENT-CONDITIONAL 6-IMMEDIATELY AFTER IMPLANTATION UP TO 3T OR LESS MAX SPG 720G CM OR LESS Hx Anesthesia Reactions: No - Immunization History Hx Pertussis Vaccination: No Immunizations Up to Date: Unable to Obtain/Confirm Infectious Disease History: Yes Infectious Disease History: Reports: Hx of Known/Suspected MRSA Denies: Traveled Outside the [place] in Last 30 Days - Family History Known Family History: Positive: Cardiac Disease - [place]. , Other - [place]. - Social History Occupation: Unemployed Lives: Alone Alcohol Use: None Hx Substance Use: No Substance Use Type: Reports: None Hx Tobacco Use: No Smoking Status (MU): Never Smoked Tobacco Have You Smoked in the Last Year: No Review of Systems Constitutional: Negative Negative: Fever, Chills, Fatigue, Skin Diaphoresis Negative: Palpitations, Chest Pain Negative: Shortness Of Breath, Cough Positive: Diarrhea. Negative: Abdominal Pain, Vomiting, Nausea Genitourinary: Negative Positive: no symptoms reported, see HPI Positive: Myalgia - lower extremities Positive: Other - non healing ulcers to the bilateral lower extremities Neurological: Negative All Other Systems Reviewed And Are Negative: Yes Physical Exam Triage Information Reviewed: Yes Vital Signs On Initial Exam: Initial Vitals Temp Pulse Resp BP Pulse Ox 97.4 F 104 14 108/52 96 05/12/18 09:08 05/12/18 09:08 05/12/18 09:08 05/12/18 09:08 05/12/18 09:08 Vital Signs Reviewed: Yes Appearance: Positive: Well-Appearing, Well-Nourished Skin: Positive: Warm, Skin Color Reflects Adequate Perfusion Head/Face: Positive: Normal Head/Face Inspection Eyes: Positive: EOMI, JOSE Neck: Positive: Supple, No Lymphadenopathy Respiratory/Lung Sounds: Positive: Clear to Auscultation, Breath Sounds Present Cardiovascular: Positive: RRR, Pulses are Symmetrical in both Upper and Lower Extremities Abdomen Description: Positive: Nontender, Soft Bowel Sounds: Positive: Present Musculoskeletal: Positive: Edema Left, Edema Right. Negative: Almaz Sign Left, Almaz Sign Right Neurological: Positive: Speech Normal Psychiatric: Positive: Normal Diagnostics - Vital Signs Vital Signs Temp Pulse Resp BP Pulse Ox 05/12/18 10:00 97 97 05/12/18 09:55 95 113/66 97 05/12/18 09:45 106 96 05/12/18 09:08 97.4 F 104 14 108/52 96 - Laboratory Lab Results: Lab Results 05/12/18 05/12/18 05/12/18 Range/Units 10:42 10:42 10:42 WBC 9.0 (3.5-10.8) 10^3/ul RBC 4.03 (4.00-5.40) 10^6/ul Hgb 10.7 L (14.0-18.0) g/dl Hct 32 L (42-52) % MCV 80 (80-94) fL MCH 27 (27-31) pg MCHC 33 (31-36) g/dl RDW 17 H (10.5-15) % Plt Count 213 (150-450) 10^3/ul MPV 6.6 L (7.4-10.4) um3 Neut % (Auto) 84.3 H (38-83) % Lymph % (Auto) 7.0 L (25-47) % [place] % (Auto) 7.5 H (0-7) % Eos % (Auto) 0.9 (0-6) % Baso % (Auto) 0.3 (0-2) % Absolute Neuts (auto) 7.6 (1.5-7.7) 10^3/ul Absolute Lymphs (auto) 0.6 L (1.0-4.8) 10^3/ul Absolute Monos (auto) 0.7 (0-0.8) 10^3/ul Absolute Eos (auto) 0.1 (0-0.6) 10^3/ul Absolute Basos (auto) 0 (0-0.2) 10^3/ul Absolute Nucleated RBC 0 10^3/ul Nucleated RBC % 0 INR (Anticoag Therapy) 1.29 H (0.77-1.02) APTT 32.7 (26.0-36.3) seconds Sodium 133 L (135-145) mmol/L Potassium 3.4 L (3.5-5.0) mmol/L Chloride 96 L (101-111) mmol/L Carbon Dioxide 29 (22-32) mmol/L Anion Gap 8 (2-11) mmol/L BUN 14 (6-24) mg/dL Creatinine 0.73 (0.67-1.17) mg/dL Est GFR ( Amer) 126.7 (>60) Est GFR (Non-Af Amer) 104.7 (>60) BUN/Creatinine Ratio 19.2 (8-20) Glucose 173 H (70-100) mg/dL Lactic Acid (0.5-2.0) mmol/L Calcium 9.2 (8.6-10.3) mg/dL Magnesium 1.7 L (1.9-2.7) mg/dL Total Bilirubin 1.50 H (0.2-1.0) mg/dL AST 16 (13-39) U/L ALT 11 (7-52) U/L Alkaline Phosphatase 125 H (34-104) U/L Total Creatine Kinase 16 (10-223) U/L C-Reactive Protein 25.03 H (<8.01) mg/L Total Protein 7.8 (6.4-8.9) g/dL Albumin 4.0 (3.2-5.2) g/dL Globulin 3.8 (2-4) g/dL Albumin/Globulin Ratio 1.1 (1-3) Lipase 14 (11.0-82.0) U/L //18 Range/Units 10:42 WBC (3.5-10.8) 10^3/ul RBC (4.00-5.40) 10^6/ul Hgb (14.0-18.0) g/dl Hct (42-52) % MCV (80-94) fL MCH (27-31) pg MCHC (31-36) g/dl RDW (10.5-15) % Plt Count (150-450) 10^3/ul MPV (7.4-10.4) um3 Neut % (Auto) (38-83) % Lymph % (Auto) (25-47) % [place] % (Auto) (0-7) % Eos % (Auto) (0-6) % Baso % (Auto) (0-2) % Absolute Neuts (auto) (1.5-7.7) 10^3/ul Absolute Lymphs (auto) (1.0-4.8) 10^3/ul Absolute Monos (auto) (0-0.8) 10^3/ul Absolute Eos (auto) (0-0.6) 10^3/ul Absolute Basos (auto) (0-0.2) 10^3/ul Absolute Nucleated RBC 10^3/ul Nucleated RBC % INR (Anticoag Therapy) (0.77-1.02) APTT (26.0-36.3) seconds Sodium (135-145) mmol/L Potassium (3.5-5.0) mmol/L Chloride (101-111) mmol/L Carbon Dioxide (22-32) mmol/L Anion Gap (2-11) mmol/L BUN (6-24) mg/dL Creatinine (0.67-1.17) mg/dL Est GFR ( Amer) (>60) Est GFR (Non-Af Amer) (>60) BUN/Creatinine Ratio (8-20) Glucose (70-100) mg/dL Lactic Acid 0.9 (0.5-2.0) mmol/L Calcium (8.6-10.3) mg/dL Magnesium (1.9-2.7) mg/dL Total Bilirubin (0.2-1.0) mg/dL AST (13-39) U/L ALT (7-52) U/L Alkaline Phosphatase (34-104) U/L Total Creatine Kinase (10-223) U/L C-Reactive Protein (<8.01) mg/L Total Protein (6.4-8.9) g/dL Albumin (3.2-5.2) g/dL Globulin (2-4) g/dL Albumin/Globulin Ratio (1-3) Lipase (11.0-82.0) U/L Result Diagrams: 05/12/18 10:42 05/12/18 10:42 Lab Statement: Any lab studies that have been ordered have been reviewed, and results considered in the medical decision making process. Naus/Vom/Diarrhea Course/Dx - Course Course Of Treatment: During the course of treatment, the patient is evaluated for persistent diarrhea and weakness. He was currently treated by Dr. Christine for C. difficile, however his last 3 cultures have been negative. Also has been having thoracentesis over the past 2 months, also which are negative for any findings. Most recent CT chest abdomen pelvis was through [facility] 2 weeks ago with no acute findings. Labs obtained and are all WNL. Stool culture obtained and is C. Diff +. Chest x-ray shows mild interstitial pulmonary edema with associated small right pleural effusion. Discussed case with Dr. Parsons who agrees to come see patient. - Differential Dx/Diagnosis Differential Diagnoses - Male: Irritable Bowel Syndrome, Diverticulosis, Ulcerative Colitis/Crohn's Disease, Gastroenteritis (Viral), Gastroenteritis ( Bacterial) Provider Diagnoses: C. difficile Discharge - Sign-Out/Discharge Documenting (check all that apply): Discharge/Admit/Transfer - Discharge Plan Condition: Stable Disposition: ADMITTED TO [facility] - Billing Disposition and Condition Condition: STABLE Disposition: Admitted to [facility]
--- NOTE | 2018-05-12 12:39 | RAD ---
Indication: Diarrhea for 8 months. History of C. Difficile colitis. Incontinent of stool. Congestive heart failure. Comparison: April 14, 2017 Technique: Upright AP 1218 hours Report: Cardiomegaly without significant change. Mildly prominent and ill-defined central pulmonary vasculature. Diffuse mild prominence of the interstitial markings. Small dependent RIGHT pleural effusion with proportional basilar atelectasis is new. Negative for pneumothorax. IMPRESSION: #. Mild interstitial pulmonary edema with associated small RIGHT pleural effusion.
[2018-05-12] MEDS ORDERED: Acetaminophen TAB* 325 MG PO PRN (14:01)
[2018-05-12] MEDS ORDERED: Ondansetron INJ* 2 MG/ML VIAL IV PRN (14:01)
[2018-05-12] MEDS ORDERED: Magnesium Sulfate 2 GM IV* 2 GM/50 ML BAG IVPB ONE (14:01)
[2018-05-12] MEDS ORDERED: Dextrose 50% Syringe 50 ML* 25 GM/50 ML SYRINGE IV PUSH PRN (14:14)
[2018-05-12] MEDS ORDERED: metroNIDAZOLE TAB* 250 MG PO SCH (15:00)
[2018-05-12] MEDS: Phenazopyridine TAB* 100 MG PO SCH ×2 (16:17→22:31)
[2018-05-12] MEDS: Collagenase 250 MG/GM OINT* 30 GM TOPICAL SCH (16:20)
[2018-05-12] MEDS: KCL 10 MEQ/50 ML IVPREMIX* 10 MEQ/50 ML BAG IV SCH ×3 (16:20→22:48)
[2018-05-12] MEDS ORDERED: Magnesium Sulfate IV* 2 GM in NS 0.9% 100 ML* 100 ML IVPB ONE (17:00)
[2018-05-12] MEDS: Vancomycin CAP* 250 MG CAP PO SCH ×2 (17:24→22:31)
[2018-05-12] MEDS: Insulin LISPRO* 1 UNITS UNIT SUBCUT SCH ×2 (17:46→22:45)
[2018-05-12] MEDS: Heparin VIAL(*) 5000 UNITS/ML VIAL (FIVE THOUSAND) SUBCUT SCH (22:31)
--- NOTE | 2018-05-12 23:39 | HP ---
CC: Dr. Hare; Micah Barker DO* HISTORY AND PHYSICAL: DATE OF ADMISSION: 05/12/18 PRIMARY CARE PROVIDER: Micah Barker DO. ATTENDING PHYSICIAN WHILE IN THE HOSPITAL: Dr. Parsons* (report being dictated by Bora Brooks NP) CONSULTING ID SPECIALIST: Dr. Hare. CHIEF COMPLAINT: Diarrhea. HISTORY OF PRESENT ILLNESS: Mr. Barker is a 77-year-old male patient with multiple medical problems coming into our emergency department today stating that about a couple of months ago, he was diagnosed with C. diff, end of March, was treated at the [facility] in the form on vanco and Flagyl. Symptoms resolved. Initially, he was having 8 to 9 bowel movements a day. Fortunately, on treatment, he was having 1 to 2 bowel movements a day. The stool was forming up, it was still quite soft, but unfortunately about a couple weeks ago , he stopped the vanco as he was prescribed to do and the C. diff came back. He says he has been having liquid loose stools frequently, explosive diarrhea over the last week or so, it has just been getting progressively worse. No abdominal pain. He has been having chills at night. No nausea or vomiting. No chest pain or any worsening shortness of breath. He does have an extensive past medical history in the form of PVD. He has had bilateral heel ulcers. He has bilateral lower extremity ulcers. He has a history of adenocarcinoma of the liver, neurogenic bladder, prostate cancer, diabetes, CAD, neuropathy, AFib , THANH, obesity, degenerative joint disease, pleural effusion, osteomyelitis in the past back in the 80s, and a history of IL. He says he was concerned because he could not keep up with the diarrhea, so he came into the ED today. He was found to be C. diff positive. It was noted that he had low potassium and low magnesium. Because of the recurrence of C. diff, we were asked to evaluate for admission. PAST MEDICAL HISTORY: Significant for: 1. PVD. 2. Left heel ulcer. 3. Bilateral lower extremity ulcers. 4. Adenocarcinoma of the liver. 5. Neurogenic bladder. 6. Prostate cancer. 7. Diabetes. 8. CAD. 9. Neuropathy. 10. AFib. 11. THANH. 12. Obesity. 13. Degenerative joint disease. 14. History of pleural effusion requiring thoracentesis, most recently [address] Barker. 15. Osteomyelitis. 16. History of IL. PAST SURGICAL HISTORY: 1. He has had the angio of the left lower extremity. 2. CABG. 3. Left total hip replacement. 4. Right total hip replacement. 5. Right total knee replacement. 6. TURP. 7. Appendectomy. 8. Carpal tunnel. 9. Uvulectomy. 10. Laminectomy. 11. He has had a cervical spine surgery. 12. ERCP. 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 HOME MEDICATIONS: According to the list provided include: 1. Fish oil 1000 mg daily. 2. Vitamin B 1 tablet p.o. daily. 3. Turmeric 1 capsule p.o. daily. 4. Bumex 2 mg p.o. daily. 5. Insulin aspart sliding scale as directed. 6. Calcium carbonate 1 tablet p.o. daily. 7. Aspirin 81 mg daily. 8. Lopressor 25 mg daily. 9. Imdur 60 mg p.o. daily. ALLERGIES TO MEDICATIONS: Include no known drug allergies. FAMILY HISTORY: Mother had a history of heart disease. Father had THANH. SOCIAL HISTORY: He does not smoke. Does not drink. Surrogate decision maker is his son, Micah Barker, who is a local physician. REVIEW OF SYSTEMS: There is no documented fever, but he does admit to having chills at night. Denies having any significant weight change. There is no double vision. He denies having any ear discharge. There is no rhinorrhea. He denies having any sore throat. There is no thyroid enlargement. Denies having any chest pain. There is no orthopnea. There is no nocturnal dyspnea. He denies having any abdominal pain. There was no nausea, no vomiting. There is diarrhea. No dysuria. No frequency. No seizure. No loss of consciousness. No pruritus and no skin ulcerations. Review of 14 systems completed, all others negative. PHYSICAL EXAMINATION GENERAL: At this time, Mr. Barker is a 77-year-old male patient. He is sitting on the bedside commode in the ED stretcher. He appears to be well nourished, well developed. He is chronically ill appearing. VITAL SIGNS: Blood pressure 107/91, pulse 96, respirations were 18, O2 sat 100% , temperature 97.4. HEENT: Head: Atraumatic, normocephalic. Eyes: EOMs are intact. Sclerae anicteric and not pale. Throat: Oral mucosa appears to be moist. No oropharyngeal erythema. NECK: Supple. LUNGS: He had crackles in the right base. He had equal diaphragmatic expansion. HEART: Sounds S1, S2. Irregularly irregular rate. No murmurs, rubs, or gallops. ABDOMEN: Soft, flat, nontender. Bowel sounds were present. EXTREMITIES: Pulses were 2+ throughout. He had +2 pitting edema. He is able to move all 4 extremities with 5/5 strength. NEUROLOGIC: He is awake, alert, oriented x3. Tongue midline. Third Mate were equal. No gross focal deficits. SKIN: He has bilateral lower extremity weeping with superficial ulcers at about stage 1. He has bilateral heel ulcers measuring about 5 cm as well that are covered with dressing. At this point, he did not want me to take the dressing off given that he was sitting in the commode and having a bowel movement. Otherwise, skin intact. LABORATORY DATA/DIAGNOSTIC STUDIES: WBC 9.0, RBC 4.03, hemoglobin 10.7, hematocrit 32, platelet count of 213. INR 1.29, aPTT of 32.7. Sodium 133, potassium 3.4, chloride 96, bicarb 29, BUN 14, creatinine 0.73, glucose 173, lactic 0.9, calcium 9.2. Mag 1.7. Total bili 1.5, AST 16, ALT 11, alk phos 125. CK 16. Albumin 4.0. Lipase normal. He did have a chest x-ray obtained today, which revealed mild interstitial pulmonary edema with associated small right pleural effusion. EKG today shows atrial fibrillation, right bundle- branch block, rate of 86, consistent with previous EKGs, rate is controlled. Old medical records were reviewed. ASSESSMENT AND PLAN: Mr. Barker is a 77-year-old male patient with multiple medical problems coming into ED today with complaints of diarrhea, found to be positive for C. diff once again. We were asked to evaluate for admission. He will be admitted under inpatient status for: 1. C. diff. At this point, I did touch base with Dr. Hare. He will be evaluating the patient tomorrow. He did recommend going ahead and putting the patient on 4 times a day vancomycin for the time being. I will hydrate p.r.n. as he has a pleural effusion with some mild interstitial edema. I do not want to fluid overload him. He does not appear to be dehydrated based on laboratory findings, so we will give him fluids as needed and we will continue with p.o. fluids for the time being. He seems to be keeping up. I will replace the magnesium and potassium as both of these are low. 2. Atrial fibrillation. He is rate controlled. He stopped his Coumadin and digoxin recently. We will monitor this. He is aware of the risk of stroke given his CHADS-VASc score, but he is not willing to take blood thinners at this point, and I did discuss this with the patient and he is again aware of the risk. 3. Peripheral vascular disease. Continue his meds as prescribed. 4. History of left heel ulcer and bilateral lower extremity ulcers. I placed a wound care consult. 5. History of adenocarcinoma of the liver. Follow with his primary oncologist. 6. Neurogenic bladder. We will place a catheter. He has requested this. 7. Prostate cancer. Again, follow with his PCP. 8. Diabetes. He takes a custom lispro sliding scale, which I have ordered for the patient. 9. Coronary artery disease. He is on aspirin, beta-priya, nitrates; continue. 10. Neuropathy. Continue meds as prescribed. 11. Obstructive sleep apnea. He is in the process of working this up and getting another sleep study. 12. History of pleural effusion. It is a small effusion at this point. He does get tapped every couple weeks. We will monitor him. Should he have any respiratory symptoms, we will repeat imaging and possibly consider tap, I do not think he needs it at this point. 13. DVT prophylaxis: I will place him on heparin subcu as he is at high risk for deep vein thrombosis. 14. Code status: He wishes to be a DNR. He did fill out a MOLST form. 15. Fluids, electrolytes, and nutrition: He can have a consistent carb diet. TIME SPENT: Time spent on admission 60 minutes, greater than half of the time spent [id number] with the patient obtaining my history and physical, other half the time spent going over the plan of care with the patient and implementing the plan of care. I did discuss the plan of care with my attending, Dr. Parsons; he is in agreement. BORA BROOKS, ALVARO [id number]/[facility] #: [id number] E.[facility]. NOBLE HOSPITALHedy
[2018-05-13] MEDS: Heparin VIAL(*) 5000 UNITS/ML VIAL (FIVE THOUSAND) SUBCUT SCH ×3 (05:40→21:41)
[2018-05-13 06:15] LABS: ABS Basophils 0 10^3/ul (0-0.2); ABS Eosinophils 0.2 10^3/ul (0-0.6); ABS Lymphocytes 0.6 10^3/ul (1.0-4.8); ABS Monocytes 0.6 10^3/ul (0-0.8); ABS Neutrophils 4.8 10^3/ul (1.5-7.7); ABS Nucleated RBC 0 10^3/ul; Eosinophil % 3.2 % (0-6); Hematocrit 27 % (42-52); Hemoglobin 9.3 g/dl (14.0-18.0); Lymphocyte % 9.6 % (25-47); Mean Corpuscular HGB Conc 34 g/dl (31-36); Mean Corpuscular Hemoglobin 26 pg (27-31); Mean Corpuscular Volume 78 fL (80-94); Mean Platelet Volume 6.7 um3 (7.4-10.4); Nucleated Red Blood Cells % 0.1; Platelet Count 164 10^3/ul (150-450); Red Blood Count 3.52 10^6/ul (4.00-5.40); Red Cell Distribution Width 17 % (10.5-15); White Blood Count 6.2 10^3/ul (3.5-10.8)
[2018-05-13 06:35] LABS: EGFR Non-African American 128.9 (>60)
[2018-05-13] MEDS: Insulin LISPRO* 1 UNITS UNIT SUBCUT SCH ×4 (08:26→21:38)
[2018-05-13] MEDS: Isosorbide Mononitrate ER TAB* 30 MG PO SCH (08:27)
[2018-05-13] MEDS: Bumetanide TAB* 2 MG PO SCH (08:27)
[2018-05-13] MEDS: Vancomycin CAP* 250 MG CAP PO SCH ×3 (08:28→18:03)
[2018-05-13] MEDS: Aspirin EC TAB* 81 MG TAB.EC PO SCH (08:28)
[2018-05-13] MEDS: Phenazopyridine TAB* 100 MG PO SCH ×3 (08:28→20:47)
[2018-05-13] MEDS: NITROGLYCERIN 2% TOPICAL SCH (08:47)
[2018-05-13] MEDS ORDERED: Metoprolol Tartrate TAB* 25 MG PO SCH (09:00)
[2018-05-13 12:09] LABS: Urine Appearance Cloudy; Urine Blood 3+ (Negative); Urine Color Yellow; Urine Ketones Negative (Negative); Urine Protein Negative (Negative); Urine Red Blood Cell 3+(>10/hpf) (Absent); Urine Specific Gravity 1.004 (1.010-1.030); Urine Urobilinogen Negative (Negative); Urine White Blood Cell 3+(>20/hpf) (Absent)
--- NOTE | 2018-05-13 12:25 | CONS ---
CONSULTATION REPORT: DATE OF CONSULT: 05/13/18 REQUESTING PHYSICIAN: Vikas Bishop NP. CONSULTING SERVICE: Infectious Disease. REASON FOR CONSULT: Recurrent C. difficile diarrhea. IMPRESSION: 1. Recurrence of C. difficile associated with diarrhea about a week- and-a- half after stopping his vancomycin, return of multiple liquid stools, positive C. diff PCR. This is his third recurrence. 2. Liver cancer awaiting further treatment. 3. Peripheral vascular disease. 4. Obesity. 5. Prostate cancer. 6. Neurogenic bladder. 7. Type 2 diabetes. 8. Coronary disease, asymptomatic. RECOMMENDATIONS: Continue vancomycin, decreased to 125 mg by mouth 4 times a day. I discussed with him options including taper and pulse course for the next few weeks of vancomycin. The alternative is the fecal transplant, which we do here with an [employer] product by enema. He is pondering those options. I will look into the logistics of doing as an inpatient. HISTORY OF PRESENT ILLNESS: This is a 77-year-old man with C. diff, which developed initially in the spring after some antibiotic therapy. He was treated initially with Flagyl, symptoms recurred. He was treated with vancomycin, which was liquid vancomycin because he could not obtain the pills without tremendous co- pay. He was starting to have soft stools once or twice a day on the vancomycin, which were fairly consistent. He stopped the vancomycin about a [id number]-half, had recurrence of his diarrhea over the last 2 to 3 days, which was multiple liquid stools day and night. No abdominal pain. His appetite was decreased, though he was not having fever. He returned to the hospital yesterday with some electrolyte derangements. He has been on vancomycin. He has had just one soft stool so far today. PAST MEDICAL HISTORY: 1. C. difficile associated with diarrhea. 2. Liver cancer, treated with local therapy and chemotherapy. 3. Prostate cancer. 4. Neurogenic bladder. 5. Peripheral vascular disease. 6. Left heel ulcer. 7. Type 2 diabetes. 8. Coronary disease. 9. Peripheral neuropathy. 10. Atrial fibrillation. 11. Obstructive sleep apnea. 12. Obesity. 13. Degenerative joint disease. 14. Chronic pleural effusion. 15. History of osteomyelitis. 16. Status post coronary bypass. 17. Status post left hip arthroplasty. 18. Status post right hip arthroplasty. 19. Status post right knee arthroplasty. 20. Transurethral resection of the prostate. 21. Appendectomy. 22. Status post carpal tunnel surgery. 23. Status post laminectomy. 24. ERCP for biliary stenosis and stent placement. MEDICATIONS: 1. Tylenol. 2. Aspirin. 3. Bumex. 4. Heparin subcutaneous injection. 5. Imdur. 6. Metoprolol. 7. Vancomycin 250 mg by mouth 4 times a day. ALLERGIES: No known drug allergies. FAMILY HISTORY: No recurrent infection. Father with sleep apnea. SOCIAL HISTORY: He lives in [facility]. He is retired, nonsmoker. REVIEW OF SYSTEMS: All negative for 14-point review of systems except as noted above in the history of present illness. PHYSICAL EXAM: Vital Signs: Temperature 37, heart rate 81, respiratory rate 20 , blood pressure 109/57, oxygen saturation 98% on room air. In general, he is awake, not in distress. Neurologic: He is oriented x3, follows all commands. HEENT: There is no conjunctival hemorrhage. Oropharynx without lesions. Mucous membranes are moist. Neck is supple without mass. Heart has regular rate and rhythm without murmurs, rubs, or gallops. Lungs are clear to auscultation bilaterally. Abdomen: Soft, nontender, and nondistended. There are bowel sounds present. Skin: There is no rash or splinter hemorrhages. Musculoskeletal: No spine tenderness to palpation. LABORATORY DATA: White blood cell count 6, hemoglobin 9.3, platelets 164. Creatinine is 0.6. CRP 25. Please see impressions and recommendations outlined above. Thanks for asking me to see Dr. Barker in consultation. [id number]/[facility] #: [id number] [facility] HOSPITALHedy
[2018-05-13] MEDS: Collagenase 250 MG/GM OINT* 30 GM TOPICAL SCH (18:04)
--- NOTE | 2018-05-13 20:43 | PN ---
Subjective Date of Service: 05/13/18 Interval History: reports that diarrhea has improved only 2 episode this AM. Denies abd pain , N/ V. denies chest pain or shortness of breath. No other complaints. Patient states that he would like fecal transplant. Family History: Unchanged from Admission Social History: Unchanged from Admission Past Medical History: Unchanged from Admission Objective Active Medications: Acetaminophen (Tylenol Tab*) 650 mg PO Q4H PRN PRN Reason: FEVER/PAIN Aspirin (Aspirin Ec Tab*) 81 mg PO DAILY [facility] Last Admin: 05/13/18 08:28 Dose: 81 mg Bumetanide (Bumex Tab*) 2 mg PO DAILY [facility] Last Admin: 05/13/18 08:27 Dose: 2 mg Collagenase (Santyl 250 Mg/Gm Oint*) 1 applic TOPICAL DAILY [facility] Last Admin: 05/13/18 18:04 Dose: 1 applic Dextrose (D50w Syringe 50 Ml*) 12.5 gm IV PUSH .FOR FS < 60 - SS PRN PRN Reason: FS < 60 Heparin Sodium (Porcine) (Heparin Vial(*)) 5,000 units SUBCUT Q8HR [facility] Last Admin: 05/13/18 14:53 Dose: 5,000 units Potassium Chloride (Potassium Chloride 20 Meq/100 Ml Ivpremix*) 20 meq in 100 mls @ 50 mls/hr IV Q2H [facility] Stop: 05/13/18 23:59 Insulin Human Lispro (Humalog*) 0 units SUBCUT ACHS [facility] Last Admin: 05/13/18 18:03 Dose: 15 units Isosorbide Mononitrate (Imdur Er Tab*) 30 mg PO DAILY [facility] Last Admin: 05/13/18 08:27 Dose: 30 mg Metoprolol Tartrate (Lopressor Tab*) 25 mg PO DAILY [facility] Last Admin: 05/13/18 08:28 Dose: 25 mg Nitroglycerin (Nitro-Bid Oint*) 1 applic TOPICAL DAILY [facility] Last Admin: 05/13/18 08:47 Dose: 1 applic Ondansetron HCl (Zofran Inj*) 4 mg IV Q6H PRN PRN Reason: NAUSEA Phenazopyridine HCl (Pyridium Tab*) 100 mg PO TID [facility] Last Admin: 05/13/18 12:51 Dose: 100 mg Vancomycin HCl (Vancomycin Cap*) 125 mg PO QID [facility] Vital Signs - 8 hr 05/13/18 15:41 Temperature 98.6 F Pulse Rate 82 Respiratory 20 Rate Blood Pressure 98/51 (mmHg) O2 Sat by Pulse 98 Oximetry Oxygen Devices in Use Now: None Appearance: appears comfortabel sitting in bed, no acute distress Eyes: No Scleral Icterus Ears/Nose/Mouth/Throat: Mucous Membranes Moist Neck: NL Appearance and Movements; NL JVP, Trachea Midline Respiratory: Symmetrical Chest Expansion and Respiratory Effort, Clear to Auscultation Cardiovascular: NL Sounds; No Murmurs; No JVD Abdominal: NL Sounds; No Tenderness; No Distention Extremities: No Clubbing, Cyanosis, - - dressign to bilateral lower ext, intact Skin: - - bilateral heel ulcers, dressing intact to bilat lower ext Neurological: Alert and Oriented x 3 Nutrition: Taking PO's Result Diagrams: 05/14/18 07:08 05/14/18 07:08 Additional Lab and Data: Lab Results 05/12/18 05/12/18 05/12/18 Range/Units 10:42 10:42 10:42 WBC 9.0 (3.5-10.8) 10^3/ul RBC 4.03 (4.00-5.40) 10^6/ul Hgb 10.7 L (14.0-18.0) g/dl Hct 32 L (42-52) % MCV 80 (80-94) fL MCH 27 (27-31) pg MCHC 33 (31-36) g/dl RDW 17 H (10.5-15) % Plt Count 213 (150-450) 10^3/ul MPV 6.6 L (7.4-10.4) um3 Neut % (Auto) 84.3 H (38-83) % Lymph % (Auto) 7.0 L (25-47) % Schuyler % (Auto) 7.5 H (0-7) % Eos % (Auto) 0.9 (0-6) % Baso % (Auto) 0.3 (0-2) % Absolute Neuts (auto) 7.6 (1.5-7.7) 10^3/ul Absolute Lymphs (auto) 0.6 L (1.0-4.8) 10^3/ul Absolute Monos (auto) 0.7 (0-0.8) 10^3/ul Absolute Eos (auto) 0.1 (0-0.6) 10^3/ul Absolute Basos (auto) 0 (0-0.2) 10^3/ul Absolute Nucleated RBC 0 10^3/ul Nucleated RBC % 0 INR (Anticoag Therapy) 1.29 H (0.77-1.02) APTT 32.7 (26.0-36.3) seconds Sodium 133 L (135-145) mmol/L Potassium 3.4 L (3.5-5.0) mmol/L Chloride 96 L (101-111) mmol/L Carbon Dioxide 29 (22-32) mmol/L Anion Gap 8 (2-11) mmol/L BUN 14 (6-24) mg/dL Creatinine 0.73 (0.67-1.17) mg/dL Est GFR ( Amer) 126.7 (>60) Est GFR (Non-Af Amer) 104.7 (>60) BUN/Creatinine Ratio 19.2 (8-20) Glucose 173 H (70-100) mg/dL Lactic Acid (0.5-2.0) mmol/L Calcium 9.2 (8.6-10.3) mg/dL Magnesium 1.7 L (1.9-2.7) mg/dL Total Bilirubin 1.50 H (0.2-1.0) mg/dL AST 16 (13-39) U/L ALT 11 (7-52) U/L Alkaline Phosphatase 125 H (34-104) U/L Total Creatine Kinase 16 (10-223) U/L C-Reactive Protein 25.03 H (<8.01) mg/L Total Protein 7.8 (6.4-8.9) g/dL Albumin 4.0 (3.2-5.2) g/dL Globulin 3.8 (2-4) g/dL Albumin/Globulin Ratio 1.1 (1-3) Lipase 14 (11.0-82.0) U/L 05/12/18 Range/Units 10:42 WBC (3.5-10.8) 10^3/ul RBC (4.00-5.40) 10^6/ul Hgb (14.0-18.0) g/dl Hct (42-52) % MCV (80-94) fL MCH (27-31) pg MCHC (31-36) g/dl RDW (10.5-15) % Plt Count (150-450) 10^3/ul MPV (7.4-10.4) um3 Neut % (Auto) (38-83) % Lymph % (Auto) (25-47) % Schuyler % (Auto) (0-7) % Eos % (Auto) (0-6) % Baso % (Auto) (0-2) % Absolute Neuts (auto) (1.5-7.7) 10^3/ul Absolute Lymphs (auto) (1.0-4.8) 10^3/ul Absolute Monos (auto) (0-0.8) 10^3/ul Absolute Eos (auto) (0-0.6) 10^3/ul Absolute Basos (auto) (0-0.2) 10^3/ul Absolute Nucleated RBC 10^3/ul Nucleated RBC % INR (Anticoag Therapy) (0.77-1.02) APTT (26.0-36.3) seconds Sodium (135-145) mmol/L Potassium (3.5-5.0) mmol/L Chloride (101-111) mmol/L Carbon Dioxide (22-32) mmol/L Anion Gap (2-11) mmol/L BUN (6-24) mg/dL Creatinine (0.67-1.17) mg/dL Est GFR ( Amer) (>60) Est GFR (Non-Af Amer) (>60) BUN/Creatinine Ratio (8-20) Glucose (70-100) mg/dL Lactic Acid 0.9 (0.5-2.0) mmol/L Calcium (8.6-10.3) mg/dL Magnesium (1.9-2.7) mg/dL Total Bilirubin (0.2-1.0) mg/dL AST (13-39) U/L ALT (7-52) U/L Alkaline Phosphatase (34-104) U/L Total Creatine Kinase (10-223) U/L C-Reactive Protein (<8.01) mg/L Total Protein (6.4-8.9) g/dL Albumin (3.2-5.2) g/dL Globulin (2-4) g/dL Albumin/Globulin Ratio (1-3) Lipase (11.0-82.0) U/L Microbiology and Other Data: Microbiology 05/12/18 11:10 Stool Gross Appearance - Final Stool Shiga Toxin I & II - Final Negative Shiga Toxin 1 & 2 C. difficile DNA Amplification - Final 027 Presumptive NEGATIVE Toxigenic C.diff POSITIVE Stool Lactoferrin - Final Stool Occult Blood (KASSANDRA) - Final 05/12/18 10:42 Aerobic Blood Culture - Preliminary Blood Venous No Growth Day 1 Anaerobic Blood Culture - Preliminary No Growth Day 1 05/12/18 10:42 Aerobic Blood Culture - Preliminary Blood Venous No Growth Day 1 Anaerobic Blood Culture - Preliminary No Growth Day 1 Assess/Plan/Problems-Billing Assessment: is a 77 y.o male that presented to the emergency room with increased diarrhea have 7 to 11 episodes daily. recently treated for c-diff as an outpatient. Mr. Barker carries a history of cad, dm, bilat lower ext wounds - Patient Problems (1) C. difficile diarrhea Current Visit: Yes Status: Acute Code(s): A04.72 - ENTEROCOLITIS D/T CLOSTRIDIUM DIFFICILE, NOT SPCF RECUR SNOMED Code(s): 0648411783080 Comment: Stool postive for c-diff Dr. Hare consulted- will decrease vancomycin to 125 mg QID, possible stool transplant Patient with 2 episode of diarrhea today - improving will continue to monitor (2) Anemia Current Visit: No Status: Acute Code(s): D64.9 - ANEMIA, UNSPECIFIED SNOMED Code(s): 092497533 Comment: - Suspect likely anemia of chronic disease. - He has no signs of active bleeding at this time. - will continue to monitor (3) Hypertension Current Visit: No Status: Acute Code(s): I10 - ESSENTIAL (PRIMARY) HYPERTENSION SNOMED Code(s): 31945044 Comment: - Controlled. - Continue Bumetanide and Metoprolol (4) CAD (coronary artery disease) Current Visit: No Status: Chronic Code(s): I25.10 - ATHSCL HEART DISEASE OF [place] CORONARY ARTERY W/O ANG PCTRS SNOMED Code(s): 62583146 Comment: Continue asa, imdur, bumex, metoprolol (5) Insulin dependent diabetes mellitus Current Visit: No Status: Chronic Priority: High Code(s): E11.9 - TYPE 2 DIABETES MELLITUS WITHOUT COMPLICATIONS; Z79.4 - USP (CURRENT) USE OF INSULIN SNOMED Code(s): 67077198 Comment: - Controlled. - Continue Lispro SS. (6) Neurogenic bladder Current Visit: No Status: Chronic Code(s): N31.9 - NEUROMUSCULAR DYSFUNCTION OF BLADDER, UNSPECIFIED SNOMED Code(s): 214850091 Comment: Ian- patient request (7) Wound of lower extremity Current Visit: No Status: Chronic Priority: High Code(s): S81.809A - UNSPECIFIED OPEN WOUND, UNSPECIFIED LOWER LEG, INIT ENCNTR SNOMED Code(s): 353244375 Comment: - has bilat heel wounds - tissue is pink without surrounding redness. Bilat lower legs with mild redness - left lower leg with open area noted to gentile. right 4th and 5 th toes with open areas Continue home wound care regimen, pt followed at wound care clinic Continue daily dressing changes . (8) Hypokalemia Current Visit: Yes Status: Acute Code(s): E87.6 - HYPOKALEMIA SNOMED Code( s): 55999665 Comment: Potassium 40 MEq IV - will repeat Potassium in the AM (9) DVT prophylaxis Current Visit: No Status: Acute Code(s): IFI8758 - SNOMED Code(s): 822636853 Comment: - SQ heparin (10) DNR (do not resuscitate) Current Visit: No Status: Acute Status and Disposition: inpatient
[2018-05-13] MEDS: KCL 20 MEQ/100 ML IVPREMIX* 20 MEQ/100 ML BAG IV SCH ×2 (20:45→23:22)
[2018-05-13] MEDS: Vancomycin CAP* 125 MG CAP PO SCH (21:39)
[2018-05-14] MEDS: Heparin VIAL(*) 5000 UNITS/ML VIAL (FIVE THOUSAND) SUBCUT SCH ×3 (05:35→21:58)
[2018-05-14 07:24] LABS: ABS Basophils 0 10^3/ul (0-0.2); ABS Eosinophils 0.2 10^3/ul (0-0.6); ABS Lymphocytes 0.7 10^3/ul (1.0-4.8); ABS Monocytes 0.6 10^3/ul (0-0.8); ABS Neutrophils 5.1 10^3/ul (1.5-7.7); ABS Nucleated RBC 0 10^3/ul; Eosinophil % 2.6 % (0-6); Hematocrit 26 % (42-52); Lymphocyte % 10.8 % (25-47); Mean Corpuscular HGB Conc 34 g/dl (31-36); Mean Corpuscular Hemoglobin 27 pg (27-31); Mean Corpuscular Volume 78 fL (80-94); Mean Platelet Volume 6.6 um3 (7.4-10.4); Nucleated Red Blood Cells % 0; Platelet Count 156 10^3/ul (150-450); Red Blood Count 3.35 10^6/ul (4.00-5.40); Red Cell Distribution Width 17 % (10.5-15); White Blood Count 6.6 10^3/ul (3.5-10.8)
[2018-05-14 07:37] LABS: EGFR Non-African American 106.4 (>60)
[2018-05-14] MEDS: Insulin LISPRO* 1 UNITS UNIT SUBCUT SCH ×4 (09:00→21:52)
[2018-05-14] MEDS: Bumetanide TAB* 2 MG PO SCH (09:01)
[2018-05-14] MEDS: Aspirin EC TAB* 81 MG TAB.EC PO SCH (09:01)
[2018-05-14] MEDS: Vancomycin CAP* 125 MG CAP PO SCH ×4 (09:01→21:51)
[2018-05-14] MEDS: Isosorbide Mononitrate ER TAB* 30 MG PO SCH (09:01)
[2018-05-14] MEDS: Phenazopyridine TAB* 100 MG PO SCH ×3 (09:01→21:52)
[2018-05-14] MEDS: Metoprolol Tartrate TAB* 25 MG PO SCH (09:02)
[2018-05-14] MEDS: NITROGLYCERIN 2% TOPICAL SCH (09:05)
[2018-05-14] MEDS: Collagenase 250 MG/GM OINT* 30 GM TOPICAL SCH (12:35)
--- NOTE | 2018-05-14 18:48 | PN ---
Subjective Date of Service: 05/14/18 Interval History: Reports did not sleep well last night, states that he also has an episode of shortness of breath during the night where he was unable to catch his breath. reports that shortness of breath has resolved. Denies chest pain. Denies abd pain n/v. Report 1 episode of minimal amt of loose stool today. Family History: Unchanged from Admission Social History: Unchanged from Admission Past Medical History: Unchanged from Admission Objective Active Medications: Acetaminophen (Tylenol Tab*) 650 mg PO Q4H PRN PRN Reason: FEVER/PAIN Aspirin (Aspirin Ec Tab*) 81 mg PO DAILY [facility] Last Admin: 05/14/18 09:01 Dose: 81 mg Bumetanide (Bumex Tab*) 2 mg PO DAILY [facility] Last Admin: 05/14/18 09:01 Dose: 2 mg Collagenase (Santyl 250 Mg/Gm Oint*) 1 applic TOPICAL DAILY [facility] Last Admin: 05/14/18 12:35 Dose: 1 applic Dextrose (D50w Syringe 50 Ml*) 12.5 gm IV PUSH .FOR FS < 60 - SS PRN PRN Reason: FS < 60 Heparin Sodium (Porcine) (Heparin Vial(*)) 5,000 units SUBCUT Q8HR [facility] Last Admin: 05/14/18 15:06 Dose: 5,000 units Insulin Human Lispro (Humalog*) 0 units SUBCUT ACHS [facility] Last Admin: 05/14/18 17:52 Dose: 5 units Isosorbide Mononitrate (Imdur Er Tab*) 30 mg PO DAILY [facility] Last Admin: 05/14/18 09:01 Dose: 30 mg Metoprolol Tartrate (Lopressor Tab*) 25 mg PO DAILY [facility] Last Admin: 05/14/18 09:02 Dose: 25 mg Nitroglycerin (Nitro-Bid Oint*) 1 applic TOPICAL DAILY [facility] Last Admin: 05/14/18 09:05 Dose: 1 applic Ondansetron HCl (Zofran Inj*) 4 mg IV Q6H PRN PRN Reason: NAUSEA Phenazopyridine HCl (Pyridium Tab*) 100 mg PO TID [facility] Last Admin: 05/14/18 15:06 Dose: 100 mg Vancomycin HCl (Vancomycin Cap*) 125 mg PO QID [facility] Last Admin: 05/14/18 17:52 Dose: 125 mg Vital Signs - 8 hr 05/14/18 11:34 Temperature 97.9 F Pulse Rate 87 Blood Pressure 155/59 (mmHg) O2 Sat by Pulse 98 Oximetry Oxygen Devices in Use Now: None Appearance: appears comfortable lying in bed. Eyes: No Scleral Icterus Ears/Nose/Mouth/Throat: Clear Oropharnyx, Mucous Membranes Moist Neck: NL Appearance and Movements; NL JVP, Trachea Midline Respiratory: Symmetrical Chest Expansion and Respiratory Effort, Clear to Auscultation Cardiovascular: NL Sounds; No Murmurs; No JVD Abdominal: NL Sounds; No Tenderness; No Distention Extremities: No Edema, No Clubbing, Cyanosis Skin: No Rash or Ulcers Neurological: Alert and Oriented x 3 Nutrition: Taking PO's Result Diagrams: 05/14/18 07:08 05/14/18 07:08 Additional Lab and Data: Lab Results 05/12/18 05/12/18 05/12/18 Range/Units 10:42 10:42 10:42 WBC 9.0 (3.5-10.8) 10^3/ul RBC 4.03 (4.00-5.40) 10^6/ul Hgb 10.7 L (14.0-18.0) g/dl Hct 32 L (42-52) % MCV 80 (80-94) fL MCH 27 (27-31) pg MCHC 33 (31-36) g/dl RDW 17 H (10.5-15) % Plt Count 213 (150-450) 10^3/ul MPV 6.6 L (7.4-10.4) um3 Neut % (Auto) 84.3 H (38-83) % Lymph % (Auto) 7.0 L (25-47) % [place] % (Auto) 7.5 H (0-7) % Eos % (Auto) 0.9 (0-6) % Baso % (Auto) 0.3 (0-2) % Absolute Neuts (auto) 7.6 (1.5-7.7) 10^3/ul Absolute Lymphs (auto) 0.6 L (1.0-4.8) 10^3/ul Absolute Monos (auto) 0.7 (0-0.8) 10^3/ul Absolute Eos (auto) 0.1 (0-0.6) 10^3/ul Absolute Basos (auto) 0 (0-0.2) 10^3/ul Absolute Nucleated RBC 0 10^3/ul Nucleated RBC % 0 INR (Anticoag Therapy) 1.29 H (0.77-1.02) APTT 32.7 (26.0-36.3) seconds Sodium 133 L (135-145) mmol/L Potassium 3.4 L (3.5-5.0) mmol/L Chloride 96 L (101-111) mmol/L Carbon Dioxide 29 (22-32) mmol/L Anion Gap 8 (2-11) mmol/L BUN 14 (6-24) mg/dL Creatinine 0.73 (0.67-1.17) mg/dL Est GFR ( Amer) 126.7 (>60) Est GFR (Non-Af Amer) 104.7 (>60) BUN/Creatinine Ratio 19.2 (8-20) Glucose 173 H (70-100) mg/dL Lactic Acid (0.5-2.0) mmol/L Calcium 9.2 (8.6-10.3) mg/dL Magnesium 1.7 L (1.9-2.7) mg/dL Total Bilirubin 1.50 H (0.2-1.0) mg/dL AST 16 (13-39) U/L ALT 11 (7-52) U/L Alkaline Phosphatase 125 H (34-104) U/L Total Creatine Kinase 16 (10-223) U/L C-Reactive Protein 25.03 H (<8.01) mg/L Total Protein 7.8 (6.4-8.9) g/dL Albumin 4.0 (3.2-5.2) g/dL Globulin 3.8 (2-4) g/dL Albumin/Globulin Ratio 1.1 (1-3) Lipase 14 (11.0-82.0) U/L 05/12/18 Range/Units 10:42 WBC (3.5-10.8) 10^3/ul RBC (4.00-5.40) 10^6/ul Hgb (14.0-18.0) g/dl Hct (42-52) % MCV (80-94) fL MCH (27-31) pg MCHC (31-36) g/dl RDW (10.5-15) % Plt Count (150-450) 10^3/ul MPV (7.4-10.4) um3 Neut % (Auto) (38-83) % Lymph % (Auto) (25-47) % [place] % (Auto) (0-7) % Eos % (Auto) (0-6) % Baso % (Auto) (0-2) % Absolute Neuts (auto) (1.5-7.7) 10^3/ul Absolute Lymphs (auto) (1.0-4.8) 10^3/ul Absolute Monos (auto) (0-0.8) 10^3/ul Absolute Eos (auto) (0-0.6) 10^3/ul Absolute Basos (auto) (0-0.2) 10^3/ul Absolute Nucleated RBC 10^3/ul Nucleated RBC % INR (Anticoag Therapy) (0.77-1.02) APTT (26.0-36.3) seconds Sodium (135-145) mmol/L Potassium (3.5-5.0) mmol/L Chloride (101-111) mmol/L Carbon Dioxide (22-32) mmol/L Anion Gap (2-11) mmol/L BUN (6-24) mg/dL Creatinine (0.67-1.17) mg/dL Est GFR ( Amer) (>60) Est GFR (Non-Af Amer) (>60) BUN/Creatinine Ratio (8-20) Glucose (70-100) mg/dL Lactic Acid 0.9 (0.5-2.0) mmol/L Calcium (8.6-10.3) mg/dL Magnesium (1.9-2.7) mg/dL Total Bilirubin (0.2-1.0) mg/dL AST (13-39) U/L ALT (7-52) U/L Alkaline Phosphatase (34-104) U/L Total Creatine Kinase (10-223) U/L C-Reactive Protein (<8.01) mg/L Total Protein (6.4-8.9) g/dL Albumin (3.2-5.2) g/dL Globulin (2-4) g/dL Albumin/Globulin Ratio (1-3) Lipase (11.0-82.0) U/L Microbiology and Other Data: Microbiology 05/12/18 11:10 Stool Gross Appearance - Final Stool Shiga Toxin I & II - Final Negative Shiga Toxin 1 & 2 C. difficile DNA Amplification - Final 027 Presumptive NEGATIVE Toxigenic C.diff POSITIVE Stool Lactoferrin - Final Stool Occult Blood (KASSANDRA) - Final 05/12/18 10:42 Aerobic Blood Culture - Preliminary Blood Venous No Growth Day 1 Anaerobic Blood Culture - Preliminary No Growth Day 1 05/12/18 10:42 Aerobic Blood Culture - Preliminary Blood Venous No Growth Day 1 Anaerobic Blood Culture - Preliminary No Growth Day 1 Assess/Plan/Problems-Billing Assessment: is a 77 y.o male that presented to the emergency room with increased diarrhea have 7 to 11 episodes daily. recently treated for c-diff as an outpatient. Mr. Barker carries a history of cad, dm, bilat lower ext wounds - Patient Problems (1) C. difficile diarrhea Current Visit: Yes Status: Acute Code(s): A04.72 - ENTEROCOLITIS D/T CLOSTRIDIUM DIFFICILE, NOT SPCF RECUR SNOMED Code(s): 6274277827306 Comment: Stool postive for c-diff Dr. Hare consulted- will decrease vancomycin to 125 mg QID, possible stool transplant Patient with 1 episode of diarrhea today very minimal amount per pt - improving will continue to monitor (2) Anemia Current Visit: No Status: Acute Code(s): D64.9 - ANEMIA, UNSPECIFIED SNOMED Code(s): 800571998 Comment: - Suspect likely anemia of chronic disease. - He has no signs of active bleeding at this time. - will continue to monitor (3) Shortness of breath Current Visit: Yes Status: Acute Code(s): R06.02 - SHORTNESS OF BREATH SNOMED Code(s): 249532918 Comment: reports episode of shortness of breath during the night- resolved. Lung soungs are clear - reports several lung taps d/t effusion- will contiue to monitor (4) Hypertension Current Visit: No Status: Acute Code(s): I10 - ESSENTIAL (PRIMARY) HYPERTENSION SNOMED Code(s): 86660199 Comment: - Controlled. - Continue Bumetanide and Metoprolol (5) CAD (coronary artery disease) Current Visit: No Status: Chronic Code(s): I25.10 - ATHSCL HEART DISEASE OF [place] CORONARY ARTERY W/O ANG PCTRS SNOMED Code(s): 14104581 Comment: Continue asa, imdur, bumex, metoprolol (6) Insulin dependent diabetes mellitus Current Visit: No Status: Chronic Priority: High Code(s): E11.9 - TYPE 2 DIABETES MELLITUS WITHOUT COMPLICATIONS; Z79.4 - SHELTER (CURRENT) USE OF INSULIN SNOMED Code(s): 28076134 Comment: - Controlled. - Continue Lispro SS. (7) Neurogenic bladder Current Visit: No Status: Chronic Code(s): N31.9 - NEUROMUSCULAR DYSFUNCTION OF BLADDER, UNSPECIFIED SNOMED Code(s): 429528925 Comment: Ian- patient request (8) Wound of lower extremity Current Visit: No Status: Chronic Priority: High Code(s): S81.809A - UNSPECIFIED OPEN WOUND, UNSPECIFIED LOWER LEG, INIT ENCNTR SNOMED Code(s): 100506888 Comment: - has bilat heel wounds - tissue is pink without surrounding redness. Bilat lower legs with mild redness - left lower leg with open area noted to gentile. right 4th and 5 th toes with open areas Continue home wound care regimen, pt followed at wound care clinic Continue daily dressing changes . (9) Hypokalemia Current Visit: Yes Status: Acute Code(s): E87.6 - HYPOKALEMIA SNOMED Code( s): 00401070 Comment: Potassium 4.0 today - will continue to monitor (10) DVT prophylaxis Current Visit: No Status: Acute Code(s): ZSZ0430 - SNOMED Code(s): 999118844 Comment: - SQ heparin (11) DNR (do not resuscitate) Current Visit: No Status: Acute Status and Disposition: inpatient
[2018-05-15] MEDS: Heparin VIAL(*) 5000 UNITS/ML VIAL (FIVE THOUSAND) SUBCUT SCH ×3 (06:04→21:31)
[2018-05-15 07:20] LABS: ABS Basophils 0 10^3/ul (0-0.2); ABS Eosinophils 0.3 10^3/ul (0-0.6); ABS Lymphocytes 0.6 10^3/ul (1.0-4.8); ABS Monocytes 0.5 10^3/ul (0-0.8); ABS Neutrophils 4.7 10^3/ul (1.5-7.7); ABS Nucleated RBC 0 10^3/ul; Eosinophil % 4.5 % (0-6); Hematocrit 28 % (42-52); Hemoglobin 9.3 g/dl (14.0-18.0); Lymphocyte % 9.2 % (25-47); Mean Corpuscular HGB Conc 34 g/dl (31-36); Mean Corpuscular Hemoglobin 27 pg (27-31); Mean Corpuscular Volume 79 fL (80-94); Mean Platelet Volume 6.8 um3 (7.4-10.4); Nucleated Red Blood Cells % 0; Platelet Count 166 10^3/ul (150-450); Red Cell Distribution Width 17 % (10.5-15)
[2018-05-15] MEDS: Insulin LISPRO* 1 UNITS UNIT SUBCUT SCH ×4 (09:11→20:57)
[2018-05-15] MEDS: Metoprolol Tartrate TAB* 25 MG PO SCH (09:12)
[2018-05-15] MEDS: Isosorbide Mononitrate ER TAB* 30 MG PO SCH (09:13)
[2018-05-15] MEDS: Phenazopyridine TAB* 100 MG PO SCH ×3 (09:13→20:57)
[2018-05-15] MEDS: Aspirin EC TAB* 81 MG TAB.EC PO SCH (09:13)
[2018-05-15] MEDS: Bumetanide TAB* 2 MG PO SCH (09:13)
[2018-05-15] MEDS: Vancomycin CAP* 125 MG CAP PO SCH ×4 (09:15→21:05)
[2018-05-15] MEDS: NITROGLYCERIN 2% TOPICAL SCH (09:17)
[2018-05-15] MEDS: Collagenase 250 MG/GM OINT* 30 GM TOPICAL SCH (09:17)
--- NOTE | 2018-05-15 18:29 | PN ---
Subjective Date of Service: 05/15/18 Interval History: C/o small amt of liquid yellow stool today x1 episode. Denies chest pain or shortness of breath. denies abd pain n/v/d. Family History: Unchanged from Admission Social History: Unchanged from Admission Past Medical History: Unchanged from Admission Objective Active Medications: Acetaminophen (Tylenol Tab*) 650 mg PO Q4H PRN PRN Reason: FEVER/PAIN Aspirin (Aspirin Ec Tab*) 81 mg PO DAILY [facility] Last Admin: 05/15/18 09:13 Dose: 81 mg Bumetanide (Bumex Tab*) 2 mg PO DAILY [facility] Last Admin: 05/15/18 09:13 Dose: 2 mg Collagenase (Santyl 250 Mg/Gm Oint*) 1 applic TOPICAL DAILY [facility] Last Admin: 05/15/18 09:17 Dose: 1 applic Dextrose (D50w Syringe 50 Ml*) 12.5 gm IV PUSH .FOR FS < 60 - SS PRN PRN Reason: FS < 60 Heparin Sodium (Porcine) (Heparin Vial(*)) 5,000 units SUBCUT Q8HR [facility] Last Admin: 05/15/18 14:27 Dose: 5,000 units Insulin Human Lispro (Humalog*) 0 units SUBCUT ACHS [facility] Last Admin: 05/15/18 18:07 Dose: 10 units Isosorbide Mononitrate (Imdur Er Tab*) 30 mg PO DAILY [facility] Last Admin: 05/15/18 09:13 Dose: 30 mg Metoprolol Tartrate (Lopressor Tab*) 25 mg PO DAILY [facility] Last Admin: 05/15/18 09:12 Dose: 25 mg Nitroglycerin (Nitro-Bid Oint*) 1 applic TOPICAL DAILY [facility] Last Admin: 05/15/18 09:17 Dose: 1 applic Ondansetron HCl (Zofran Inj*) 4 mg IV Q6H PRN PRN Reason: NAUSEA Phenazopyridine HCl (Pyridium Tab*) 100 mg PO TID [facility] Last Admin: 05/15/18 14:27 Dose: 100 mg Vancomycin HCl (Vancomycin Cap*) 125 mg PO QID [facility] Last Admin: 05/15/18 17:59 Dose: 125 mg Vital Signs - 8 hr 05/15/18 11:33 Temperature 97.9 F Pulse Rate 84 Respiratory 24 Rate Blood Pressure 107/76 (mmHg) O2 Sat by Pulse 99 Oximetry Oxygen Devices in Use Now: None Appearance: appears comfortable sitting up, no acute distress Eyes: No Scleral Icterus Ears/Nose/Mouth/Throat: Clear Oropharnyx, Mucous Membranes Moist Neck: NL Appearance and Movements; NL JVP, Trachea Midline Respiratory: Symmetrical Chest Expansion and Respiratory Effort, Clear to Auscultation Cardiovascular: NL Sounds; No Murmurs; No JVD Abdominal: NL Sounds; No Tenderness; No Distention Extremities: No Edema, No Clubbing, Cyanosis Skin: - - Bilat lower legs with dressing, right lower leg with open area to gentile and heel, reddened, Left lower leg with mild redness and swelling , open area to heel. open areas tissue is pink. Neurological: Alert and Oriented x 3 Result Diagrams: 05/15/18 06:49 05/14/18 07:08 Additional Lab and Data: Lab Results 05/12/18 05/12/18 05/12/18 Range/Units 10:42 10:42 10:42 WBC 9.0 (3.5-10.8) 10^3/ul RBC 4.03 (4.00-5.40) 10^6/ul Hgb 10.7 L (14.0-18.0) g/dl Hct 32 L (42-52) % MCV 80 (80-94) fL MCH 27 (27-31) pg MCHC 33 (31-36) g/dl RDW 17 H (10.5-15) % Plt Count 213 (150-450) 10^3/ul MPV 6.6 L (7.4-10.4) um3 Neut % (Auto) 84.3 H (38-83) % Lymph % (Auto) 7.0 L (25-47) % [place] % (Auto) 7.5 H (0-7) % Eos % (Auto) 0.9 (0-6) % Baso % (Auto) 0.3 (0-2) % Absolute Neuts (auto) 7.6 (1.5-7.7) 10^3/ul Absolute Lymphs (auto) 0.6 L (1.0-4.8) 10^3/ul Absolute Monos (auto) 0.7 (0-0.8) 10^3/ul Absolute Eos (auto) 0.1 (0-0.6) 10^3/ul Absolute Basos (auto) 0 (0-0.2) 10^3/ul Absolute Nucleated RBC 0 10^3/ul Nucleated RBC % 0 INR (Anticoag Therapy) 1.29 H (0.77-1.02) APTT 32.7 (26.0-36.3) seconds Sodium 133 L (135-145) mmol/L Potassium 3.4 L (3.5-5.0) mmol/L Chloride 96 L (101-111) mmol/L Carbon Dioxide 29 (22-32) mmol/L Anion Gap 8 (2-11) mmol/L BUN 14 (6-24) mg/dL Creatinine 0.73 (0.67-1.17) mg/dL Est GFR ( Amer) 126.7 (>60) Est GFR (Non-Af Amer) 104.7 (>60) BUN/Creatinine Ratio 19.2 (8-20) Glucose 173 H (70-100) mg/dL Lactic Acid (0.5-2.0) mmol/L Calcium 9.2 (8.6-10.3) mg/dL Magnesium 1.7 L (1.9-2.7) mg/dL Total Bilirubin 1.50 H (0.2-1.0) mg/dL AST 16 (13-39) U/L ALT 11 (7-52) U/L Alkaline Phosphatase 125 H (34-104) U/L Total Creatine Kinase 16 (10-223) U/L C-Reactive Protein 25.03 H (<8.01) mg/L Total Protein 7.8 (6.4-8.9) g/dL Albumin 4.0 (3.2-5.2) g/dL Globulin 3.8 (2-4) g/dL Albumin/Globulin Ratio 1.1 (1-3) Lipase 14 (11.0-82.0) U/L //18 Range/Units 10:42 WBC (3.5-10.8) 10^3/ul RBC (4.00-5.40) 10^6/ul Hgb (14.0-18.0) g/dl Hct (42-52) % MCV (80-94) fL MCH (27-31) pg MCHC (31-36) g/dl RDW (10.5-15) % Plt Count (150-450) 10^3/ul MPV (7.4-10.4) um3 Neut % (Auto) (38-83) % Lymph % (Auto) (25-47) % [place] % (Auto) (0-7) % Eos % (Auto) (0-6) % Baso % (Auto) (0-2) % Absolute Neuts (auto) (1.5-7.7) 10^3/ul Absolute Lymphs (auto) (1.0-4.8) 10^3/ul Absolute Monos (auto) (0-0.8) 10^3/ul Absolute Eos (auto) (0-0.6) 10^3/ul Absolute Basos (auto) (0-0.2) 10^3/ul Absolute Nucleated RBC 10^3/ul Nucleated RBC % INR (Anticoag Therapy) (0.77-1.02) APTT (26.0-36.3) seconds Sodium (135-145) mmol/L Potassium (3.5-5.0) mmol/L Chloride (101-111) mmol/L Carbon Dioxide (22-32) mmol/L Anion Gap (2-11) mmol/L BUN (6-24) mg/dL Creatinine (0.67-1.17) mg/dL Est GFR ( Amer) (>60) Est GFR (Non-Af Amer) (>60) BUN/Creatinine Ratio (8-20) Glucose (70-100) mg/dL Lactic Acid 0.9 (0.5-2.0) mmol/L Calcium (8.6-10.3) mg/dL Magnesium (1.9-2.7) mg/dL Total Bilirubin (0.2-1.0) mg/dL AST (13-39) U/L ALT (7-52) U/L Alkaline Phosphatase (34-104) U/L Total Creatine Kinase (10-223) U/L C-Reactive Protein (<8.01) mg/L Total Protein (6.4-8.9) g/dL Albumin (3.2-5.2) g/dL Globulin (2-4) g/dL Albumin/Globulin Ratio (1-3) Lipase (11.0-82.0) U/L Microbiology and Other Data: Microbiology 05/12/18 11:10 Stool Gross Appearance - Final Stool Shiga Toxin I & II - Final Negative Shiga Toxin 1 & 2 C. difficile DNA Amplification - Final 027 Presumptive NEGATIVE Toxigenic C.diff POSITIVE Stool Lactoferrin - Final Stool Occult Blood (KASSANDRA) - Final 05/12/18 10:42 Aerobic Blood Culture - Preliminary Blood Venous No Growth Day 1 Anaerobic Blood Culture - Preliminary No Growth Day 1 05/12/18 10:42 Aerobic Blood Culture - Preliminary Blood Venous No Growth Day 1 Anaerobic Blood Culture - Preliminary No Growth Day 1 Assess/Plan/Problems-Billing Assessment: is a 77 y.o male that presented to the emergency room with increased diarrhea have 7 to 11 episodes daily. recently treated for c-diff as an outpatient. Mr. Barker carries a history of cad, dm, bilat lower ext wounds - Patient Problems (1) C. difficile diarrhea Current Visit: Yes Status: Acute Code(s): A04.72 - ENTEROCOLITIS D/T CLOSTRIDIUM DIFFICILE, NOT SPCF RECUR SNOMED Code(s): 4730628264683 Comment: Stool postive for c-diff Dr. Hare consulted- will decrease vancomycin to 125 mg QID, possible stool transplant Patient with 1 episode of stool today , yellow loose today very minimal amount per pt - improving will continue to monitor (2) Anemia Current Visit: No Status: Acute Code(s): D64.9 - ANEMIA, UNSPECIFIED SNOMED Code(s): 120722614 Comment: - Suspect likely anemia of chronic disease. - He has no signs of active bleeding at this time. - will continue to monitor (3) UTI (urinary tract infection) Current Visit: Yes Status: Acute Comment: Urine culture positive for Proteus mirabilis [id number] sens. pending Give current dx of C-diff and asymptomatic- no fever or chills- did consult Dr. Hare will hold on antibiotics at this time. (4) Hypertension Current Visit: No Status: Acute Code(s): I10 - ESSENTIAL (PRIMARY) HYPERTENSION SNOMED Code(s): 51787816 Comment: - Controlled. - Continue Bumetanide and Metoprolol (5) Shortness of breath Current Visit: Yes Status: Acute Code(s): R06.02 - SHORTNESS OF BREATH SNOMED Code(s): 885093939 Comment: reports episode of shortness of breath during the night- resolved. 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 - Continue Lispro SS. (7) CAD (coronary artery disease) Current Visit: No Status: Chronic Code(s): I25.10 - ATHSCL HEART DISEASE OF [place] CORONARY ARTERY W/O ANG PCTRS SNOMED Code(s): 27568405 Comment: Continue asa, imdur, bumex, metoprolol (8) Neurogenic bladder Current Visit: No Status: Chronic Code(s): N31.9 - NEUROMUSCULAR DYSFUNCTION OF BLADDER, UNSPECIFIED SNOMED Code(s): 193615030 Comment: Sosa- patient request (9) Wound of lower extremity Current Visit: No Status: Chronic Priority: High Code(s): S81.809A - UNSPECIFIED OPEN WOUND, UNSPECIFIED LOWER LEG, INIT ENCNTR SNOMED Code(s): 781377435 Comment: - has bilat heel wounds - tissue is pink without surrounding redness. Bilat lower legs with mild redness - left lower leg with open area noted to gentile. right 4th and 5 th toes with open areas Continue home wound care regimen, pt followed at wound care clinic Continue daily dressing changes . (10) Hypokalemia Current Visit: Yes Status: Acute Code(s): E87.6 - HYPOKALEMIA SNOMED Code( s): 36667992 Comment: Potassium 4.0 05/14/18 - will continue to monitor (11) DVT prophylaxis Current Visit: No Status: Acute Code(s): KST9824 - SNOMED Code(s): 433878023 Comment: - SQ heparin (12) DNR (do not resuscitate) Current Visit: No Status: Acute Status and Disposition: inpatient
[2018-05-16] MEDS: Heparin VIAL(*) 5000 UNITS/ML VIAL (FIVE THOUSAND) SUBCUT SCH ×3 (06:02→21:19)
[2018-05-16] MEDS: Phenazopyridine TAB* 100 MG PO SCH ×3 (08:53→20:42)
[2018-05-16] MEDS: Bumetanide TAB* 2 MG PO SCH (08:53)
[2018-05-16] MEDS: Isosorbide Mononitrate ER TAB* 30 MG PO SCH (08:53)
[2018-05-16] MEDS: Metoprolol Tartrate TAB* 25 MG PO SCH (08:54)
[2018-05-16] MEDS: Vancomycin CAP* 125 MG CAP PO SCH ×4 (08:54→20:42)
[2018-05-16] MEDS: Aspirin EC TAB* 81 MG TAB.EC PO SCH (08:54)
[2018-05-16] MEDS: Insulin LISPRO* 1 UNITS UNIT SUBCUT SCH ×4 (08:55→20:42)
[2018-05-16] MEDS: NITROGLYCERIN 2% TOPICAL SCH (08:56)
[2018-05-16] MEDS: Collagenase 250 MG/GM OINT* 30 GM TOPICAL SCH (08:56)
--- NOTE | 2018-05-16 10:41 | PN ---
Progress Note - Progress Note Date of Service: 05/16/18 SOAP: Subjective: CC: Cdif HPI: 77 year old man with recurrent Cdif diarrhea, return of diarrhea after finishing vancomycin last week. Today one soft stool, no abd pain, fever, or rash. Appetite is good. Objective: Vital Signs Temp 36.6 C 05/16/18 08:03 Pulse 97 05/16/18 08:03 Resp 18 05/16/18 08:03 BP 134/70 05/16/18 08:03 Pulse Ox 97 05/16/18 08:03 Intake & Output 05/15/18 05/16/18 05/16/18 18:59 06:59 18:59 Intake Total 2990 720 360 Output Total 2500 Balance 2990 -1780 360 Intake: Oral 2990 720 360 Output: Urine 750 Sosa 1750 Other: Estimated Void Medium Date of Last Bowel 05/15/2018 Movement # Bowel Movements 1 0 Estimated Stool Amount Small Medium # Voids 1 Gen:awake, no distress HEENT: no thrush Heart:RRR no murmur Lungs:CTA BL Abd:+BS NTND soft Skin: no rash Laboratory Results - last 24 hr 05/15/18 05/15/18 05/15/18 11:54 16:57 20:17 POC Glucose (mg/dL) 191 H 157 H 154 H 05/16/18 07:45 POC Glucose (mg/dL) 165 H Assessment: 1. Cdif diarrhea, recurrent 2. liver cancer 3. obesity Plan: 1. continue vanco 125 mg po 4times daily, then FMT; will have donor supply in Wed, can aim for Th as inpt assuming bowels continue to improve. Informed consent obtained and signed on 05/13. 35 minutes floor time >50% face to face in counseling regarding details of the procedure and arranging to be done here.
--- NOTE | 2018-05-16 15:39 | PN ---
Subjective Date of Service: 05/16/18 Interval History: Patient seen and examined. States he had one well formed stool today, no further episodes of diarrhea. Denies abdominal pain, no fevers or chills, no SOB , no chest pain. Family History: Unchanged from Admission Social History: Unchanged from Admission Past Medical History: Unchanged from Admission Objective Active Medications: Acetaminophen (Tylenol Tab*) 650 mg PO Q4H PRN PRN Reason: FEVER/PAIN Aspirin (Aspirin Ec Tab*) 81 mg PO DAILY [facility] Last Admin: 05/16/18 08:54 Dose: 81 mg Bumetanide (Bumex Tab*) 2 mg PO DAILY [facility] Last Admin: 05/16/18 08:53 Dose: 2 mg Collagenase (Santyl 250 Mg/Gm Oint*) 1 applic TOPICAL DAILY [facility] Last Admin: 05/16/18 08:56 Dose: 1 applic Dextrose (D50w Syringe 50 Ml*) 12.5 gm IV PUSH .FOR FS < 60 - SS PRN PRN Reason: FS < 60 Heparin Sodium (Porcine) (Heparin Vial(*)) 5,000 units SUBCUT Q8HR [facility] Last Admin: 05/16/18 13:36 Dose: 5,000 units Insulin Human Lispro (Humalog*) 0 units SUBCUT ACHS [facility] Last Admin: 05/16/18 12:04 Dose: 20 units Isosorbide Mononitrate (Imdur Er Tab*) 30 mg PO DAILY [facility] Last Admin: 05/16/18 08:53 Dose: 30 mg Metoprolol Tartrate (Lopressor Tab*) 25 mg PO DAILY [facility] Last Admin: 05/16/18 08:54 Dose: 25 mg Nitroglycerin (Nitro-Bid Oint*) 1 applic TOPICAL DAILY [facility] Last Admin: 05/16/18 08:56 Dose: 1 applic Ondansetron HCl (Zofran Inj*) 4 mg IV Q6H PRN PRN Reason: NAUSEA Phenazopyridine HCl (Pyridium Tab*) 100 mg PO TID [facility] Last Admin: 05/16/18 13:36 Dose: 100 mg Vancomycin HCl (Vancomycin Cap*) 125 mg PO QID [facility] Last Admin: 05/16/18 13:36 Dose: 125 mg Vital Signs - 8 hr 05/16/18 05/16/18 05/16/18 08:00 08:03 11:17 Temperature 97.8 F 98.3 F Pulse Rate 97 86 Respiratory 16 18 18 Rate Blood Pressure 134/70 118/67 (mmHg) O2 Sat by Pulse 97 99 Oximetry Oxygen Devices in Use Now: None Appearance: Alert, NAD Eyes: No Scleral Icterus, PERRLA Ears/Nose/Mouth/Throat: NL Teeth, Lips, Gums, Mucous Membranes Moist Neck: Trachea Midline Respiratory: Symmetrical Chest Expansion and Respiratory Effort, Clear to Auscultation Cardiovascular: NL Sounds; No Murmurs; No JVD, RRR, - - bilater LE edema at baseline Abdominal: NL Sounds; No Tenderness; No Distention Extremities: No Clubbing, Cyanosis, - - wounds RLE wrapped in [place], CDI Skin: No Rash or Ulcers Neurological: Alert and Oriented x 3 Nutrition: Taking PO's Result Diagrams: 05/15/18 06:49 05/14/18 07:08 Additional Lab and Data: Lab Results 05/12/18 05/12/18 05/12/18 Range/Units 10:42 10:42 10:42 WBC 9.0 (3.5-10.8) 10^3/ul RBC 4.03 (4.00-5.40) 10^6/ul Hgb 10.7 L (14.0-18.0) g/dl Hct 32 L (42-52) % MCV 80 (80-94) fL MCH 27 (27-31) pg MCHC 33 (31-36) g/dl RDW 17 H (10.5-15) % Plt Count 213 (150-450) 10^3/ul MPV 6.6 L (7.4-10.4) um3 Neut % (Auto) 84.3 H (38-83) % Lymph % (Auto) 7.0 L (25-47) % [place] % (Auto) 7.5 H (0-7) % Eos % (Auto) 0.9 (0-6) % Baso % (Auto) 0.3 (0-2) % Absolute Neuts (auto) 7.6 (1.5-7.7) 10^3/ul Absolute Lymphs (auto) 0.6 L (1.0-4.8) 10^3/ul Absolute Monos (auto) 0.7 (0-0.8) 10^3/ul Absolute Eos (auto) 0.1 (0-0.6) 10^3/ul Absolute Basos (auto) 0 (0-0.2) 10^3/ul Absolute Nucleated RBC 0 10^3/ul Nucleated RBC % 0 INR (Anticoag Therapy) 1.29 H (0.77-1.02) APTT 32.7 (26.0-36.3) seconds Sodium 133 L (135-145) mmol/L Potassium 3.4 L (3.5-5.0) mmol/L Chloride 96 L (101-111) mmol/L Carbon Dioxide 29 (22-32) mmol/L Anion Gap 8 (2-11) mmol/L BUN 14 (6-24) mg/dL Creatinine 0.73 (0.67-1.17) mg/dL Est GFR ( Amer) 126.7 (>60) Est GFR (Non-Af Amer) 104.7 (>60) BUN/Creatinine Ratio 19.2 (8-20) Glucose 173 H (70-100) mg/dL Lactic Acid (0.5-2.0) mmol/L Calcium 9.2 (8.6-10.3) mg/dL Magnesium 1.7 L (1.9-2.7) mg/dL Total Bilirubin 1.50 H (0.2-1.0) mg/dL AST 16 (13-39) U/L ALT 11 (7-52) U/L Alkaline Phosphatase 125 H (34-104) U/L Total Creatine Kinase 16 (10-223) U/L C-Reactive Protein 25.03 H (<8.01) mg/L Total Protein 7.8 (6.4-8.9) g/dL Albumin 4.0 (3.2-5.2) g/dL Globulin 3.8 (2-4) g/dL Albumin/Globulin Ratio 1.1 (1-3) Lipase 14 (11.0-82.0) U/L 05/12/18 Range/Units 10:42 WBC (3.5-10.8) 10^3/ul RBC (4.00-5.40) 10^6/ul Hgb (14.0-18.0) g/dl Hct (42-52) % MCV (80-94) fL MCH (27-31) pg MCHC (31-36) g/dl RDW (10.5-15) % Plt Count (150-450) 10^3/ul MPV (7.4-10.4) um3 Neut % (Auto) (38-83) % Lymph % (Auto) (25-47) % [place] % (Auto) (0-7) % Eos % (Auto) (0-6) % Baso % (Auto) (0-2) % Absolute Neuts (auto) (1.5-7.7) 10^3/ul Absolute Lymphs (auto) (1.0-4.8) 10^3/ul Absolute Monos (auto) (0-0.8) 10^3/ul Absolute Eos (auto) (0-0.6) 10^3/ul Absolute Basos (auto) (0-0.2) 10^3/ul Absolute Nucleated RBC 10^3/ul Nucleated RBC % INR (Anticoag Therapy) (0.77-1.02) APTT (26.0-36.3) seconds Sodium (135-145) mmol/L Potassium (3.5-5.0) mmol/L Chloride (101-111) mmol/L Carbon Dioxide (22-32) mmol/L Anion Gap (2-11) mmol/L BUN (6-24) mg/dL Creatinine (0.67-1.17) mg/dL Est GFR ( Amer) (>60) Est GFR (Non-Af Amer) (>60) BUN/Creatinine Ratio (8-20) Glucose (70-100) mg/dL Lactic Acid 0.9 (0.5-2.0) mmol/L Calcium (8.6-10.3) mg/dL Magnesium (1.9-2.7) mg/dL Total Bilirubin (0.2-1.0) mg/dL AST (13-39) U/L ALT (7-52) U/L Alkaline Phosphatase (34-104) U/L Total Creatine Kinase (10-223) U/L C-Reactive Protein (<8.01) mg/L Total Protein (6.4-8.9) g/dL Albumin (3.2-5.2) g/dL Globulin (2-4) g/dL Albumin/Globulin Ratio (1-3) Lipase (11.0-82.0) U/L Microbiology and Other Data: Microbiology 05/12/18 11:10 Stool Gross Appearance - Final Stool Shiga Toxin I & II - Final Negative Shiga Toxin 1 & 2 C. difficile DNA Amplification - Final 027 Presumptive NEGATIVE Toxigenic C.diff POSITIVE Stool Lactoferrin - Final Stool Occult Blood (KASSANDRA) - Final 05/12/18 10:42 Aerobic Blood Culture - Preliminary Blood Venous No Growth Day 1 Anaerobic Blood Culture - Preliminary No Growth Day 1 05/12/18 10:42 Aerobic Blood Culture - Preliminary Blood Venous No Growth Day 1 Anaerobic Blood Culture - Preliminary No Growth Day 1 Assess/Plan/Problems-Billing Assessment: This is a 77 y.o male that presented to the emergency room with increased diarrhea have 7 to 11 episodes daily. Recently treated for c-diff as an outpatient. Mr. Barker carries a history of cad, dm, bilat lower ext wounds - Patient Problems (1) C. difficile diarrhea Code(s): A04.72 - ENTEROCOLITIS D/T CLOSTRIDIUM DIFFICILE, NOT SPCF RECUR SNOMED Code(s): 9309492658805 Comment: - Recurrent cdiff, failed several courses of vanco - Continue vanco PO QID, diarrhea improving - Will have fecal transplant (2) Hypokalemia Code(s): E87.6 - HYPOKALEMIA SNOMED Code(s): 47877716 Comment: - Potassium stable, replete as needed, likely 2/2 diarrhea (3) Anemia Code(s): D64.9 - ANEMIA, UNSPECIFIED SNOMED Code(s): 412275458 Comment: - Suspect likely anemia of chronic disease. - H&H stable, no bleeding (4) Afib Code(s): I48.91 - UNSPECIFIED ATRIAL FIBRILLATION SNOMED Code(s): 03052575 Comment: - Not currently on AC - Cotn[place]ue BB for rate control - In chronic Afib with no RVR on tele currently (5) CAD (coronary artery disease) Code(s): I25.10 - ATHSCL HEART DISEASE OF [place] CORONARY ARTERY W/O ANG PCTRS SNOMED Code(s): 56844629 Comment: - Continue asa, imdur, bumex, metoprolol (6) CHF (congestive heart failure) Code(s): I50.9 - HEART FAILURE, UNSPECIFIED SNOMED Code(s): 39963191 Comment: - Continue bumex daily with ramipril. 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 (8) Wound of lower extremity Code(s): S81.809A - UNSPECIFIED OPEN WOUND, UNSPECIFIED LOWER LEG, INIT ENCNTR SNOMED Code(s): 184019348 Comment: - Bilat heel wounds, wrapped and not visualized today, however per notes, tissue is pink without surrounding redness. - Left lower leg with open area noted to gentile. right 4th and 5 th toes with open areas - Continue home wound care regimen, pt followed at wound care clinic - Continue daily dressing changes Status and Disposition: Remain inpatient in anticipation of fecal transplant on .
[2018-05-17] MEDS: Heparin VIAL(*) 5000 UNITS/ML VIAL (FIVE THOUSAND) SUBCUT SCH ×3 (05:48→21:11)
[2018-05-17] MEDS: Bumetanide TAB* 2 MG PO SCH (08:53)
[2018-05-17] MEDS: Aspirin EC TAB* 81 MG TAB.EC PO SCH (08:53)
[2018-05-17] MEDS: Phenazopyridine TAB* 100 MG PO SCH ×3 (08:54→21:11)
[2018-05-17] MEDS: Vancomycin CAP* 125 MG CAP PO SCH ×4 (08:54→21:11)
[2018-05-17] MEDS: Isosorbide Mononitrate ER TAB* 30 MG PO SCH (08:54)
[2018-05-17] MEDS: Metoprolol Tartrate TAB* 25 MG PO SCH (08:54)
[2018-05-17] MEDS: Insulin LISPRO* 1 UNITS UNIT SUBCUT SCH ×4 (08:54→20:33)
[2018-05-17] MEDS: Collagenase 250 MG/GM OINT* 30 GM TOPICAL SCH (08:56)
[2018-05-17] MEDS: NITROGLYCERIN 2% TOPICAL SCH (08:57)
--- NOTE | 2018-05-17 14:20 | PN ---
Subjective Date of Service: 05/17/18 Interval History: Patient seen and examined. 2 well formed stools today, no diarrhea, no abdominal pain, no chest pain and no SOB. Family History: Unchanged from Admission Social History: Unchanged from Admission Past Medical History: Unchanged from Admission Objective Active Medications: Acetaminophen (Tylenol Tab*) 650 mg PO Q4H PRN PRN Reason: FEVER/PAIN Aspirin (Aspirin Ec Tab*) 81 mg PO DAILY [facility] Last Admin: 05/17/18 08:53 Dose: 81 mg Bumetanide (Bumex Tab*) 2 mg PO DAILY [facility] Last Admin: 05/17/18 08:53 Dose: 2 mg Collagenase (Santyl 250 Mg/Gm Oint*) 1 applic TOPICAL DAILY [facility] Last Admin: 05/17/18 08:56 Dose: 1 applic Dextrose (D50w Syringe 50 Ml*) 12.5 gm IV PUSH .FOR FS < 60 - SS PRN PRN Reason: FS < 60 Heparin Sodium (Porcine) (Heparin Vial(*)) 5,000 units SUBCUT Q8HR [facility] Last Admin: 05/17/18 05:48 Dose: 5,000 units Insulin Human Lispro (Humalog*) 0 units SUBCUT ACHS [facility] Last Admin: 05/17/18 12:07 Dose: 15 units Isosorbide Mononitrate (Imdur Er Tab*) 30 mg PO DAILY [facility] Last Admin: 05/17/18 08:54 Dose: 30 mg Metoprolol Tartrate (Lopressor Tab*) 25 mg PO DAILY [facility] Last Admin: 05/17/18 08:54 Dose: 25 mg Nitroglycerin (Nitro-Bid Oint*) 1 applic TOPICAL DAILY [facility] Last Admin: 05/17/18 08:57 Dose: 1 applic Ondansetron HCl (Zofran Inj*) 4 mg IV Q6H PRN PRN Reason: NAUSEA Phenazopyridine HCl (Pyridium Tab*) 100 mg PO TID [facility] Last Admin: 05/17/18 08:54 Dose: 100 mg Vancomycin HCl (Vancomycin Cap*) 125 mg PO QID [facility] Last Admin: 05/17/18 12:08 Dose: 125 mg Vital Signs - 8 hr 05/17/18 05/17/18 07:51 08:00 Temperature 98.4 F Pulse Rate 88 Respiratory 20 16 Rate Blood Pressure 115/58 (mmHg) O2 Sat by Pulse 94 Oximetry Oxygen Devices in Use Now: None Appearance: Alert, NAD Eyes: PERRLA Ears/Nose/Mouth/Throat: NL Teeth, Lips, Gums, Mucous Membranes Moist Neck: NL Appearance and Movements; NL JVP, Trachea Midline Respiratory: Symmetrical Chest Expansion and Respiratory Effort, Clear to Auscultation Cardiovascular: NL Sounds; No Murmurs; No JVD - irregular, afib on tele Abdominal: NL Sounds; No Tenderness; No Distention Extremities: - - bilateral LE edema Skin: - - chronic wounds, at baseline Neurological: Alert and Oriented x 3, NL Muscle Strength and Tone Nutrition: Taking PO's Result Diagrams: 05/15/18 06:49 05/14/18 07:08 Additional Lab and Data: Lab Results 05/12/18 05/12/18 05/12/18 Range/Units 10:42 10:42 10:42 WBC 9.0 (3.5-10.8) 10^3/ul RBC 4.03 (4.00-5.40) 10^6/ul Hgb 10.7 L (14.0-18.0) g/dl Hct 32 L (42-52) % MCV 80 (80-94) fL MCH 27 (27-31) pg MCHC 33 (31-36) g/dl RDW 17 H (10.5-15) % Plt Count 213 (150-450) 10^3/ul MPV 6.6 L (7.4-10.4) um3 Neut % (Auto) 84.3 H (38-83) % Lymph % (Auto) 7.0 L (25-47) % [place] % (Auto) 7.5 H (0-7) % Eos % (Auto) 0.9 (0-6) % Baso % (Auto) 0.3 (0-2) % Absolute Neuts (auto) 7.6 (1.5-7.7) 10^3/ul Absolute Lymphs (auto) 0.6 L (1.0-4.8) 10^3/ul Absolute Monos (auto) 0.7 (0-0.8) 10^3/ul Absolute Eos (auto) 0.1 (0-0.6) 10^3/ul Absolute Basos (auto) 0 (0-0.2) 10^3/ul Absolute Nucleated RBC 0 10^3/ul Nucleated RBC % 0 INR (Anticoag Therapy) 1.29 H (0.77-1.02) APTT 32.7 (26.0-36.3) seconds Sodium 133 L (135-145) mmol/L Potassium 3.4 L (3.5-5.0) mmol/L Chloride 96 L (101-111) mmol/L Carbon Dioxide 29 (22-32) mmol/L Anion Gap 8 (2-11) mmol/L BUN 14 (6-24) mg/dL Creatinine 0.73 (0.67-1.17) mg/dL Est GFR ( Amer) 126.7 (>60) Est GFR (Non-Af Amer) 104.7 (>60) BUN/Creatinine Ratio 19.2 (8-20) Glucose 173 H (70-100) mg/dL Lactic Acid (0.5-2.0) mmol/L Calcium 9.2 (8.6-10.3) mg/dL Magnesium 1.7 L (1.9-2.7) mg/dL Total Bilirubin 1.50 H (0.2-1.0) mg/dL AST 16 (13-39) U/L ALT 11 (7-52) U/L Alkaline Phosphatase 125 H (34-104) U/L Total Creatine Kinase 16 (10-223) U/L C-Reactive Protein 25.03 H (<8.01) mg/L Total Protein 7.8 (6.4-8.9) g/dL Albumin 4.0 (3.2-5.2) g/dL Globulin 3.8 (2-4) g/dL Albumin/Globulin Ratio 1.1 (1-3) Lipase 14 (11.0-82.0) U/L 05/12/18 Range/Units 10:42 WBC (3.5-10.8) 10^3/ul RBC (4.00-5.40) 10^6/ul Hgb (14.0-18.0) g/dl Hct (42-52) % MCV (80-94) fL MCH (27-31) pg MCHC (31-36) g/dl RDW (10.5-15) % Plt Count (150-450) 10^3/ul MPV (7.4-10.4) um3 Neut % (Auto) (38-83) % Lymph % (Auto) (25-47) % [place] % (Auto) (0-7) % Eos % (Auto) (0-6) % Baso % (Auto) (0-2) % Absolute Neuts (auto) (1.5-7.7) 10^3/ul Absolute Lymphs (auto) (1.0-4.8) 10^3/ul Absolute Monos (auto) (0-0.8) 10^3/ul Absolute Eos (auto) (0-0.6) 10^3/ul Absolute Basos (auto) (0-0.2) 10^3/ul Absolute Nucleated RBC 10^3/ul Nucleated RBC % INR (Anticoag Therapy) (0.77-1.02) APTT (26.0-36.3) seconds Sodium (135-145) mmol/L Potassium (3.5-5.0) mmol/L Chloride (101-111) mmol/L Carbon Dioxide (22-32) mmol/L Anion Gap (2-11) mmol/L BUN (6-24) mg/dL Creatinine (0.67-1.17) mg/dL Est GFR ( Amer) (>60) Est GFR (Non-Af Amer) (>60) BUN/Creatinine Ratio (8-20) Glucose (70-100) mg/dL Lactic Acid 0.9 (0.5-2.0) mmol/L Calcium (8.6-10.3) mg/dL Magnesium (1.9-2.7) mg/dL Total Bilirubin (0.2-1.0) mg/dL AST (13-39) U/L ALT (7-52) U/L Alkaline Phosphatase (34-104) U/L Total Creatine Kinase (10-223) U/L C-Reactive Protein (<8.01) mg/L Total Protein (6.4-8.9) g/dL Albumin (3.2-5.2) g/dL Globulin (2-4) g/dL Albumin/Globulin Ratio (1-3) Lipase (11.0-82.0) U/L Microbiology and Other Data: Microbiology 05/12/18 11:10 Stool Gross Appearance - Final Stool Shiga Toxin I & II - Final Negative Shiga Toxin 1 & 2 C. difficile DNA Amplification - Final 027 Presumptive NEGATIVE Toxigenic C.diff POSITIVE Stool Lactoferrin - Final Stool Occult Blood (KASSANDRA) - Final 05/12/18 10:42 Aerobic Blood Culture - Preliminary Blood Venous No Growth Day 1 Anaerobic Blood Culture - Preliminary No Growth Day 1 05/12/18 10:42 Aerobic Blood Culture - Preliminary Blood Venous No Growth Day 1 Anaerobic Blood Culture - Preliminary No Growth Day 1 Assess/Plan/Problems-Billing Assessment: This is a 77 y.o male that presented to the emergency room with increased diarrhea have 7 to 11 episodes daily. Recently treated for c-diff as an outpatient. Mr. Barker carries a history of cad, dm, bilat lower ext wounds - Patient Problems (1) C. difficile diarrhea Code(s): A04.72 - ENTEROCOLITIS D/T CLOSTRIDIUM DIFFICILE, NOT SPCF RECUR SNOMED Code(s): 2433935091203 Comment: - Recurrent cdiff, failed several courses of vanco - Continue vanco PO QID, diarrhea resolving - Will have fecal transplant as per ID (2) Hypokalemia Code(s): E87.6 - HYPOKALEMIA SNOMED Code(s): 21188112 Comment: - Potassium stable, replete as needed, likely 2/2 diarrhea (3) Anemia Code(s): D64.9 - ANEMIA, UNSPECIFIED SNOMED Code(s): 094305460 Comment: - Suspect likely anemia of chronic disease. - H&H stable, no bleeding (4) Afib Code(s): I48.91 - UNSPECIFIED ATRIAL FIBRILLATION SNOMED Code(s): 44687152 Comment: - Not currently on AC - Continue BB for rate control - In chronic Afib with no RVR on tele currently (5) CAD (coronary artery disease) Code(s): I25.10 - ATHSCL HEART DISEASE OF [place] CORONARY ARTERY W/O ANG PCTRS SNOMED Code(s): 37760511 Comment: - Continue asa, imdur, bumex, metoprolol (6) CHF (congestive heart failure) Code(s): I50.9 - HEART FAILURE, UNSPECIFIED SNOMED Code(s): 68989456 Comment: - Continue bumex daily with ramipril. (7) Insulin dependent diabetes mellitus Code(s): E11.9 - TYPE 2 DIABETES MELLITUS WITHOUT COMPLICATIONS; Z79.4 - PRISON (CURRENT) USE OF INSULIN SNOMED Code(s): 50483224 Comment: - Controlled, continue lantus and Lispro SS. (8) Wound of lower extremity Code(s): S81.809A - UNSPECIFIED OPEN WOUND, UNSPECIFIED LOWER LEG, INIT ENCNTR SNOMED Code(s): 752682532 Comment: - Bilat heel wounds, left lower leg with open area noted to gentile. right 4th and 5 th toes with open areas - Continue home wound care regimen, pt followed at wound care clinic - Continue daily dressing changes Status and Disposition: Remain inpatient in anticipation of fecal transplant on .
[2018-05-18] MEDS: Heparin VIAL(*) 5000 UNITS/ML VIAL (FIVE THOUSAND) SUBCUT SCH ×3 (05:27→21:22)
[2018-05-18] MEDS: Insulin LISPRO* 1 UNITS UNIT SUBCUT SCH ×4 (08:37→20:39)
[2018-05-18] MEDS: Vancomycin CAP* 125 MG CAP PO SCH (08:38)
[2018-05-18] MEDS: Metoprolol Tartrate TAB* 25 MG PO SCH (08:38)
[2018-05-18] MEDS: Aspirin EC TAB* 81 MG TAB.EC PO SCH (08:39)
[2018-05-18] MEDS: Bumetanide TAB* 2 MG PO SCH (08:39)
[2018-05-18] MEDS: Phenazopyridine TAB* 100 MG PO SCH ×3 (08:39→20:51)
[2018-05-18] MEDS: Isosorbide Mononitrate ER TAB* 30 MG PO SCH (08:39)
[2018-05-18] MEDS ORDERED: Ondansetron INJ* 2 MG/ML VIAL IV PRN (09:40)
[2018-05-18] MEDS ORDERED: Loperamide CAP* 2 MG PO ONE (09:43)
--- NOTE | 2018-05-18 10:07 | PN ---
Progress Note - Progress Note Date of Service: 05/18/18 SOAP: Subjective: CC: Cdif HPI: 77 year old man with recurrent Cdif diarrhea, return of diarrhea after finishing vancomycin last week. Formed stool yesterday, feels well, no complaints. Objective: Vital Signs Temp 36.6 C 05/18/18 07:54 Pulse 106 05/18/18 07:54 Resp 22 05/18/18 09:56 BP 110/62 05/18/18 07:54 Pulse Ox 97 05/18/18 07:54 Intake & Output 05/17/18 05/18/18 05/18/18 18:59 06:59 18:59 Intake Total 1080 240 Output Total 2300 1700 Balance -1220 -1460 Intake: Oral 1080 240 Output: Sosa 2300 1700 Other: # Bowel Movements 0 1 Estimated Stool Amount Small Gen:awake, no distress HEENT: no thrush Heart:RRR no murmur Lungs:CTA BL Abd:+BS NTND soft Skin: no rash Laboratory Results - last 24 hr 05/17/18 05/17/18 05/17/18 12:02 17:20 20:24 POC Glucose (mg/dL) 172 H 148 H 210 H 05/18/18 07:18 POC Glucose (mg/dL) 179 H Assessment: 1. Cdif diarrhea, recurrent 2. liver cancer 3. obesity Plan: 1. Hold vanco, clear liq then NPO after midnight, bowel prep tonight, FMT tomorrow, re-obtained informed consent today. Imodium in the AM. 60 minutes floor time >50% face to face in coordinating the stool transplant
[2018-05-18] MEDS: NITROGLYCERIN 2% TOPICAL SCH (14:29)
[2018-05-18] MEDS ORDERED: PEG 3000 GI LAVAGE* 1 GALLON PO ONE (16:00)
--- NOTE | 2018-05-18 16:42 | PN ---
Subjective Date of Service: 05/18/18 Interval History: Patient seen and examined. Does not offer any complaints today, states his stools are formed and he has no abdominal pain, no fevers or chills. No pain in leg wounds. No chest pain and no SOB. Family History: Unchanged from Admission Social History: Unchanged from Admission Past Medical History: Unchanged from Admission Objective Active Medications: Acetaminophen (Tylenol Tab*) 650 mg PO Q4H PRN PRN Reason: FEVER/PAIN Aspirin (Aspirin Ec Tab*) 81 mg PO DAILY [facility] Last Admin: 05/18/18 08:39 Dose: 81 mg Bumetanide (Bumex Tab*) 2 mg PO DAILY [facility] Last Admin: 05/18/18 08:39 Dose: 2 mg Collagenase (Santyl 250 Mg/Gm Oint*) 1 applic TOPICAL DAILY [facility] Last Admin: 05/17/18 08:56 Dose: 1 applic Dextrose (D50w Syringe 50 Ml*) 12.5 gm IV PUSH .FOR FS < 60 - SS PRN PRN Reason: FS < 60 Heparin Sodium (Porcine) (Heparin Vial(*)) 5,000 units SUBCUT Q8HR [facility] Last Admin: 05/18/18 14:28 Dose: 5,000 units Insulin Human Lispro (Humalog*) 0 units SUBCUT ACHS [facility] Last Admin: 05/18/18 12:49 Dose: 15 units Isosorbide Mononitrate (Imdur Er Tab*) 30 mg PO DAILY [facility] Last Admin: 05/18/18 08:39 Dose: 30 mg Loperamide HCl (Imodium Cap*) 4 mg PO ONCE ONE Stop: 05/19/18 07:01 Metoprolol Tartrate (Lopressor Tab*) 25 mg PO DAILY [facility] Last Admin: 05/18/18 08:38 Dose: 25 mg Nitroglycerin (Nitro-Bid Oint*) 1 applic TOPICAL DAILY [facility] Last Admin: 05/18/18 14:29 Dose: 1 applic Ondansetron HCl (Zofran Inj*) 4 mg IV Q4H PRN PRN Reason: NAUSEA Phenazopyridine HCl (Pyridium Tab*) 100 mg PO TID [facility] Last Admin: 05/18/18 14:27 Dose: 100 mg Vital Signs - 8 hr 05/18/18 05/18/18 05/18/18 09:56 11:29 16:17 Temperature 97.5 F Pulse Rate 78 85 Respiratory 22 17 18 Rate Blood Pressure 108/67 116/68 (mmHg) O2 Sat by Pulse 98 99 Oximetry Oxygen Devices in Use Now: None Appearance: alert, NAD Eyes: No Scleral Icterus, PERRLA Ears/Nose/Mouth/Throat: NL Teeth, Lips, Gums, Mucous Membranes Moist Neck: NL Appearance and Movements; NL JVP, Trachea Midline Respiratory: Symmetrical Chest Expansion and Respiratory Effort, Clear to Auscultation Cardiovascular: - - bilateral LE edema with wounds, at baseline/dressed Extremities: No Clubbing, Cyanosis Neurological: Alert and Oriented x 3 Nutrition: Taking PO's, - - changed to CLD today Result Diagrams: 05/15/18 06:49 05/14/18 07:08 Additional Lab and Data: Lab Results 05/12/18 05/12/18 05/12/18 Range/Units 10:42 10:42 10:42 WBC 9.0 (3.5-10.8) 10^3/ul RBC 4.03 (4.00-5.40) 10^6/ul Hgb 10.7 L (14.0-18.0) g/dl Hct 32 L (42-52) % MCV 80 (80-94) fL MCH 27 (27-31) pg MCHC 33 (31-36) g/dl RDW 17 H (10.5-15) % Plt Count 213 (150-450) 10^3/ul MPV 6.6 L (7.4-10.4) um3 Neut % (Auto) 84.3 H (38-83) % Lymph % (Auto) 7.0 L (25-47) % [place] % (Auto) 7.5 H (0-7) % Eos % (Auto) 0.9 (0-6) % Baso % (Auto) 0.3 (0-2) % Absolute Neuts (auto) 7.6 (1.5-7.7) 10^3/ul Absolute Lymphs (auto) 0.6 L (1.0-4.8) 10^3/ul Absolute Monos (auto) 0.7 (0-0.8) 10^3/ul Absolute Eos (auto) 0.1 (0-0.6) 10^3/ul Absolute Basos (auto) 0 (0-0.2) 10^3/ul Absolute Nucleated RBC 0 10^3/ul Nucleated RBC % 0 INR (Anticoag Therapy) 1.29 H (0.77-1.02) APTT 32.7 (26.0-36.3) seconds Sodium 133 L (135-145) mmol/L Potassium 3.4 L (3.5-5.0) mmol/L Chloride 96 L (101-111) mmol/L Carbon Dioxide 29 (22-32) mmol/L Anion Gap 8 (2-11) mmol/L BUN 14 (6-24) mg/dL Creatinine 0.73 (0.67-1.17) mg/dL Est GFR ( Amer) 126.7 (>60) Est GFR (Non-Af Amer) 104.7 (>60) BUN/Creatinine Ratio 19.2 (8-20) Glucose 173 H (70-100) mg/dL Lactic Acid (0.5-2.0) mmol/L Calcium 9.2 (8.6-10.3) mg/dL Magnesium 1.7 L (1.9-2.7) mg/dL Total Bilirubin 1.50 H (0.2-1.0) mg/dL AST 16 (13-39) U/L ALT 11 (7-52) U/L Alkaline Phosphatase 125 H (34-104) U/L Total Creatine Kinase 16 (10-223) U/L C-Reactive Protein 25.03 H (<8.01) mg/L Total Protein 7.8 (6.4-8.9) g/dL Albumin 4.0 (3.2-5.2) g/dL Globulin 3.8 (2-4) g/dL Albumin/Globulin Ratio 1.1 (1-3) Lipase 14 (11.0-82.0) U/L 05/12/18 Range/Units 10:42 WBC (3.5-10.8) 10^3/ul RBC (4.00-5.40) 10^6/ul Hgb (14.0-18.0) g/dl Hct (42-52) % MCV (80-94) fL MCH (27-31) pg MCHC (31-36) g/dl RDW (10.5-15) % Plt Count (150-450) 10^3/ul MPV (7.4-10.4) um3 Neut % (Auto) (38-83) % Lymph % (Auto) (25-47) % [place] % (Auto) (0-7) % Eos % (Auto) (0-6) % Baso % (Auto) (0-2) % Absolute Neuts (auto) (1.5-7.7) 10^3/ul Absolute Lymphs (auto) (1.0-4.8) 10^3/ul Absolute Monos (auto) (0-0.8) 10^3/ul Absolute Eos (auto) (0-0.6) 10^3/ul Absolute Basos (auto) (0-0.2) 10^3/ul Absolute Nucleated RBC 10^3/ul Nucleated RBC % INR (Anticoag Therapy) (0.77-1.02) APTT (26.0-36.3) seconds Sodium (135-145) mmol/L Potassium (3.5-5.0) mmol/L Chloride (101-111) mmol/L Carbon Dioxide (22-32) mmol/L Anion Gap (2-11) mmol/L BUN (6-24) mg/dL Creatinine (0.67-1.17) mg/dL Est GFR ( Amer) (>60) Est GFR (Non-Af Amer) (>60) BUN/Creatinine Ratio (8-20) Glucose (70-100) mg/dL Lactic Acid 0.9 (0.5-2.0) mmol/L Calcium (8.6-10.3) mg/dL Magnesium (1.9-2.7) mg/dL Total Bilirubin (0.2-1.0) mg/dL AST (13-39) U/L ALT (7-52) U/L Alkaline Phosphatase (34-104) U/L Total Creatine Kinase (10-223) U/L C-Reactive Protein (<8.01) mg/L Total Protein (6.4-8.9) g/dL Albumin (3.2-5.2) g/dL Globulin (2-4) g/dL Albumin/Globulin Ratio (1-3) Lipase (11.0-82.0) U/L Microbiology and Other Data: Microbiology 05/12/18 11:10 Stool Gross Appearance - Final Stool Shiga Toxin I & II - Final Negative Shiga Toxin 1 & 2 C. difficile DNA Amplification - Final 027 Presumptive NEGATIVE Toxigenic C.diff POSITIVE Stool Lactoferrin - Final Stool Occult Blood (KASSANDRA) - Final 05/12/18 10:42 Aerobic Blood Culture - Preliminary Blood Venous No Growth Day 1 Anaerobic Blood Culture - Preliminary No Growth Day 1 05/12/18 10:42 Aerobic Blood Culture - Preliminary Blood Venous No Growth Day 1 Anaerobic Blood Culture - Preliminary No Growth Day 1 Assess/Plan/Problems-Billing Assessment: This is a 77 y.o male that presented to the emergency room with increased diarrhea with 7 to 11 episodes daily. Failed outpatient tx for cdiff. History of cad, dm, bilat lower ext wounds. - Patient Problems (1) C. difficile diarrhea Code(s): A04.72 - ENTEROCOLITIS D/T CLOSTRIDIUM DIFFICILE, NOT SPCF RECUR SNOMED Code(s): 3393953586672 Comment: - Recurrent cdiff, failed several courses of vanco - Diarrhea resolved, per ID, will stop vanco today - Scheduled for fecal transplant as per ID - Mini prep with go-lytely as per ID (2) Hypokalemia Code(s): E87.6 - HYPOKALEMIA SNOMED Code(s): 54546613 Comment: - Potassium stable, replete as needed, likely 2/2 diarrhea (3) Anemia Code(s): D64.9 - ANEMIA, UNSPECIFIED SNOMED Code(s): 495181499 Comment: - Suspect likely anemia of chronic disease. - H&H stable, no bleeding (4) Afib Code(s): I48.91 - UNSPECIFIED ATRIAL FIBRILLATION SNOMED Code(s): 18107258 Comment: - Not currently on AC - Continue BB for rate control - In chronic Afib with no RVR on tele currently (5) CAD (coronary artery disease) Code(s): I25.10 - ATHSCL HEART DISEASE OF [place] CORONARY ARTERY W/O ANG PCTRS SNOMED Code(s): 07400741 Comment: - Continue asa, imdur, bumex, metoprolol (6) CHF (congestive heart failure) Code(s): I50.9 - HEART FAILURE, UNSPECIFIED SNOMED Code(s): 85822946 Comment: - Continue bumex daily with ramipril. (7) Insulin dependent diabetes mellitus Code(s): E11.9 - TYPE 2 DIABETES MELLITUS WITHOUT COMPLICATIONS; Z79.4 - CORRECTION (CURRENT) USE OF INSULIN SNOMED Code(s): 75668399 Comment: - Controlled, continue lantus and Lispro SS. (8) Wound of lower extremity Code(s): S81.809A - UNSPECIFIED OPEN WOUND, UNSPECIFIED LOWER LEG, INIT ENCNTR SNOMED Code(s): 956975440 Comment: - Bilat heel wounds, left lower leg with open area noted to gentile. right 4th and 5 th toes with open areas - Continue home wound care regimen, pt followed at wound care clinic - Continue daily dressing changes - Stable Status and Disposition: Fecal transplant tomorrow then DC to home in afternoon.
[2018-05-18] MEDS: Collagenase 250 MG/GM OINT* 30 GM TOPICAL SCH (20:53)
[2018-05-19] MEDS: Heparin VIAL(*) 5000 UNITS/ML VIAL (FIVE THOUSAND) SUBCUT SCH ×2 (05:35→15:23)
[2018-05-19] MEDS ORDERED: Loperamide CAP* 2 MG PO ONE ×2 (07:00→08:26)
[2018-05-19 08:09] VITALS: BP 103/59
[2018-05-19] MEDS: Insulin LISPRO* 1 UNITS UNIT SUBCUT SCH ×2 (08:09→12:22)
[2018-05-19] MEDS: Phenazopyridine TAB* 100 MG PO SCH ×2 (09:36→15:14)
--- NOTE | 2018-05-19 10:19 | PN ---
Progress Note - Progress Note Date of Service: 05/19/18 SOAP: Subjective: CC: Cdif HPI: 77 year old man with recurrent Cdif diarrhea, return of diarrhea after finishing vancomycin last week. Tolerated the prep well last night, feels well this morning. Objective: Vital Signs Temp 36.6 C 05/19/18 08:04 Pulse 88 05/19/18 08:04 Resp 18 05/19/18 10:11 BP 103/59 05/19/18 08:04 Pulse Ox 98 05/19/18 09:24 Intake & Output 05/18/18 05/19/18 05/19/18 18:59 06:59 18:59 Intake Total 1200 400 0 Output Total 4550 1100 Balance -3350 -700 0 Intake: Oral 1200 400 0 Output: Sosa 4550 1100 Other: Estimated Void Large # Bowel Movements 2 1 Estimated Stool Amount Small Medium Gen:awake, no distress HEENT: no thrush Heart:RRR no murmur Lungs:CTA BL Abd:+BS NTND soft Skin: no rash Laboratory Results - last 24 hr 05/18/18 05/18/18 05/18/18 11:31 14:13 16:44 POC Glucose (mg/dL) 222 H 164 H 118 H 05/18/18 05/19/18 20:37 08:05 POC Glucose (mg/dL) 169 H 158 H Assessment: 1. Cdif diarrhea, recurrent 2. liver cancer 3. obesity Plan: 1. Hold vanco, FMT this morning; he will call if return of liquid stools 25 minutes floor time >50% face to face discussing expectations post FMT
[2018-05-19] MEDS: Bumetanide TAB* 2 MG PO SCH (15:14)
[2018-05-19] MEDS: Isosorbide Mononitrate ER TAB* 30 MG PO SCH (15:14)
[2018-05-19] MEDS: NITROGLYCERIN 2% TOPICAL SCH (15:14)
[2018-05-19] MEDS: Metoprolol Tartrate TAB* 25 MG PO SCH (15:14)
[2018-05-19] MEDS: Aspirin EC TAB* 81 MG TAB.EC PO SCH (15:14)
[2018-05-19] MEDS: Collagenase 250 MG/GM OINT* 30 GM TOPICAL SCH (15:24)
--- NOTE | 2018-05-19 17:02 | DS ---
CC: Dr. Micah Barker * DATE OF ADMISSION: 05/12/2018. DATE OF DISCHARGE: 05/19/2018. ATTENDING PHYSICIAN FOR THIS ADMISSION: Dr. Parsons. MY ATTENDING PHYSICIAN FOR TODAY: Dr. Kailash Mccray * (dictated by Brit Ramirez NP). PRIMARY CARE PHYSICIAN: Dr. Micah Barker. HOSPITAL COURSE: This is a very pleasant, 77-year-old male patient who presented to the emergency department with a complaint of copious amounts of diarrhea. The patient states he was having 7 to 12 stools a day for several days. He had just completed a course of Vancomycin or C. diff and was well- known to Dr. Hare's service. However, as soon as he completed his Vancomycin, his diarrhea started again and he was feeling weak and he came to the emergency department for evaluation. The patient was found to have some electrolyte disturbances, likely secondary to his diarrhea and also a recurrence of his C. diff enteritis. The patient's magnesium and potassium were repleted in the emergency department. He received IV fluids and was admitted for his recurrent C. diff. The patient was seen by Dr. Ck Hare of the Infectious Disease Service who restarted his Vancomycin 125 mg four times a day. After discussion back and forth with the patient, it was decided that the patient would benefit from having a fecal transplant. Dr. Hare coordinated this. Sample was received on Wednesday the and the patient underwent the procedure at the bedside today on 05/19/2018. The patient had an uneventful course during his installation enema procedure of the fecal transplant and tolerated the process very well without any issues. He did have a partial bowel prep the day before and was given Lomotil so the patient would be able to hold the installation in for as long as possible to have an effective treatment. Again, the patient underwent this procedure with no issues. He is feeling well and as per the nursing staff, has tolerated without any problems today. I had discussed with the patient at length the day before that he would be discharged postprocedure and he is stable for discharge today. REVIEW OF SYSTEMS TODAY: No complaints of fever, fatigue, or chills. No shortness of breath, no chest pain, no abdominal pain. No urinary complaints. No diarrhea. He has had formed stools for several days. Musculoskeletal: There is no clubbing and no cyanosis. He does have baseline bipedal edema with chronic leg and heel wounds that are dressed and treated with Santyl. Since his admission, everything is at baseline. Neurologic: He is grossly intact with no focal deficits. Psychiatric: He is cooperative and appropriate. PHYSICAL EXAMINATION: Vital signs today: Blood pressure 103/59, heart rate 88 , respiratory rate 19, O2 saturation 99 percent on room air with a temperature of 97.8. LABORATORY DATA: WBC 6.0, RBC 3.50, hemoglobin 9.3, hematocrit 28, platelets 166; sodium 134, potassium 3.7, chloride 102, CO2 27, BUN 11, creatinine 0.61, GFR 128.9, calcium 8.3, magnesium 1.9, glucose 140. DISCHARGE DIAGNOSES: 1. Recurrent C. diff colitis. 2. History of atrial fibrillation. 3. Peripheral vascular disease with chronic leg wounds. 4. History of adenocarcinoma of the liver. 5. History of neurogenic bladder. 6. History of prostate cancer, in remission. 7. Diabetes, on Lispro sliding scale. 8. Coronary artery disease, stable. 9. History of peripheral neuropathy, at baseline. 10. History of obstructive sleep apnea, at baseline. DISCHARGE MEDICATIONS: 1. Santyl 250 mg ointment applied daily. 2. Imdur 30 mg daily. 3. Metoprolol Tartrate 25 mg daily. 4. Baby aspirin 81 mg daily. 5. Calcium magnesium tablets one tablet daily. 6. NovoLog sliding scale daily. 7. Bumex 2 mg p.o. daily. 8. Turmeric extract one capsule daily. 9. Vitamin B complex one tablet daily. 10. [place]-3 fatty acids 1,000 mg daily. DISPOSITION: The patient will be discharged to home. He is in stable condition. Patient states his understanding of his discharge instructions, medications, and follow-ups. FOLLOW-UP: The patient is instructed to follow-up with his primary care, Dr. Micah Barker. An appointment has already been made for him for this week on the at 11:00 a.m. He should also follow-up with his home healthcare aide and nursing staff who come to the house to assist with wound care. He should stay on the Santyl wound care treatment and that should be adjusted as necessary while he is back home in the community. He can also follow-up with Dr. kC Hare in the next one to two weeks to ensure continued resolution of his symptoms postprocedure. Again, the patient was discharged in stable condition. All questions were answered. BRIT RAMIREZ, HEARING AIDE TECHNICIAN [id number]/[facility] #: [id number] JUANITA
== END 2018-05-19 17:05 | disposition home health service (06) | DRG 372 ==
LOC: ED 09:06 → MED 13:59
PROVIDERS: ADMIT Internal Medicine; ATTEND Internal Medicine
DX: A04.71 Enterocolitis due to Clostridium difficile, recurrent (principal); L97.429 Non-pressure chronic ulcer of left heel and midfoot with unspecified severity; L97.419 Non-pressure chronic ulcer of right heel and midfoot with unspecified severity; N39.0 Urinary tract infection, site not specified; J90 Pleural effusion, not elsewhere classified; C22.9 Malignant neoplasm of liver, not specified as primary or secondary; Z68.41 Body mass index [BMI] 40.0-44.9, adult; I25.10 Atherosclerotic heart disease of native coronary artery without angina pectoris; I50.9 Heart failure, unspecified; E11.51 Type 2 diabetes mellitus with diabetic peripheral angiopathy without gangrene; I48.2 Chronic atrial fibrillation; M19.90 Unspecified osteoarthritis, unspecified site; E11.40 Type 2 diabetes mellitus with diabetic neuropathy, unspecified; Z96.643 Presence of artificial hip joint, bilateral; Z96.651 Presence of right artificial knee joint; G47.33 Obstructive sleep apnea (adult) (pediatric); E66.9 Obesity, unspecified; N31.9 Neuromuscular dysfunction of bladder, unspecified; D64.9 Anemia, unspecified; I70.203 Unspecified atherosclerosis of native arteries of extremities, bilateral legs; E11.621 Type 2 diabetes mellitus with foot ulcer; E11.36 Type 2 diabetes mellitus with diabetic cataract; I11.0 Hypertensive heart disease with heart failure; E87.6 Hypokalemia; Z86.19 Personal history of other infectious and parasitic diseases; Z85.05 Personal history of malignant neoplasm of liver; Z86.79 Personal history of other diseases of the circulatory system; I25.2 Old myocardial infarction; Z95.5 Presence of coronary angioplasty implant and graft; Z90.79 Acquired absence of other genital organ(s); Z85.46 Personal history of malignant neoplasm of prostate; Z89.431 Acquired absence of right foot; Z82.49 Family history of ischemic heart disease and other diseases of the circulatory system; Z80.8 Family history of malignant neoplasm of other organs or systems; Z83.6 Family history of other diseases of the respiratory system; Z92.21 Personal history of antineoplastic chemotherapy; Z79.82 Long term (current) use of aspirin; Z79.4 Long term (current) use of insulin
CPT/HCPCS: 36415; 71045; 80048; 80053; 81003; 81015; 82272; 82550; 83605; 83630; 83690; 83735; 85025; 85610; 85730; 86140; 87040; 87045; 87046; 87077; 87086; 87186; 87493; 87899; 93005; 99214; 99284; A9270-GY; G0463; G8978-GP-CI; G8979-GP-CI; G8980-GP-CI; J1644; J3475; J3480